=== PATIENT | male | born 1985 | race Caucasian/White ===

== ENCOUNTER 2016-11-10 14:53 | Emergency (ER) | payer SELFPAY ==
[2016-11-10 14:58] VITALS: O2SAT 98
--- NOTE | 2016-11-10 14:59 | EDPHY ---
H & P Stated Complaint: N/V since yesterday;diabetic Time Seen by Provider: 11/10/16 14:58 - Personal History Current Tetanus Diphtheria and Acellular Pertussis (TDAP): Yes Tetanus Vaccine Date: WITHIN 10 YRS - Medical/Surgical History Hx Asthma: No Hx Chronic Respiratory Disease: No Hx Diabetes: Yes Hx Cardiac Disease: No Hx Renal Disease: No Hx Cirrhosis: No Hx Alcoholism: No Hx HIV/AIDS: No Hx Splenectomy or Spleen Trauma: No Other PMH: DIABETES. occ THC use - Social History Smoking Status: Current some day smoker Constitutional: Initial Vital Signs Temperature (C) 36.7 C 11/10/16 14:54 Heart Rate 108 H 11/10/16 14:54 Respiratory Rate 18 11/10/16 14:54 Blood Pressure 128/93 H 11/10/16 14:54 O2 Sat (%) 98 11/10/16 14:54 O2 Delivery Mode Room Air Allergies/Adverse Reactions: No Known Allergies Allergy (Verified 11/10/16 14:54) Home Medications: Medication Instructions Recorded Insulin Detemir [Levemir] 25 units SC BID 06/02/15 Medical Decision Making ED Course/Re-evaluation: CHIEF COMPLAINT: Nausea, vomiting. HISTORY OF PRESENT ILLNESS: The patient is a 31-year-old male with a history of diabetes who presents with nausea and vomiting for the past 24 hours. His last few episodes of emesis have been streaked with blood. He admits associated non- migratory abdominal cramping from the vomiting. He denies diarrhea, fever, or other complaints. REVIEW OF SYSTEMS: A 10 point review of systems was performed and is negative with the exception of the elements mentioned in the history of present illness. PHYSICAL EXAM: HR, BP, O2 Sat, RR. Temp noted General Appearance: Alert, well hydrated, appropriate, and non-toxic appearing. Head: Atraumatic without scalp tenderness or obvious injury Eyes: Pupils equal, round, reactive to light and accommodation, EOMI, no trauma , no injection. Ears: Clear bilaterally, no perforation, normal landmarks Nose: Atraumatic, no rhinorrhea, clear. Throat: There is no erythema or exudates, no lesions, normal tonsils, mucus membranes moist. Neck: Supple, 2+ carotid upstroke, nontender, no lymphadenopathy. Respiratory: No retractions, no distress, no wheezes, and no accessory muscle use. Lungs are clear to auscultation bilaterally. Cardiovascular: Regular rate and rhythm, no murmurs, rubs, or gallops. Bilateral carotid, radial, dorsalis pedis, and posterior tibial pulses intact. Good capillary refill all extremities. Gastrointestinal: Abdomen is soft, non-distended, no masses, no rebound, no guarding, no peritoneal signs. Diffuse tenderness. Musculoskeletal: Normal active ROM of all extremities, atraumatic. Neurological: Alert, appropriate, and interactive. The patient has normal DTRs and non-focal cranial nerves, motor, sensory, and cerebellar exam. Skin: No rashes, good turgor, no nodules on palpation. Past medical history: Diabetes. Past surgical history: Non-contributory. Family history: Non-contributory. Social history: Nonsmoker. DIFFERENTIAL DIAGNOSIS: The differential diagnosis for the patient's nausea and vomiting included but was not limited to gastroenteritis, gastritis, appendicitis, and medication side effect. MEDICAL DECISION MAKIN-year-old male with diabetes presents with nausea and vomiting over the past 24 hours. He has associated crampy abdominal pain and is diffusely tender. His emesis has become blood-streaked but he does not describe a large amount of blood. No diarrhea or fever. An IV was established. He will have 2L IV saline, 20mg IV Pepcid for abdominal discomfort, and 4mg IV Zofran for nausea. He will be discharged when he can tolerate PO challenge. 161: Reassessed patient. He is still nauseated. 12.5mg IV Phenergan administered. 1650: Patient PO challenged. He tolerated well. He is comfortable going home. 1749: Patient vomiting again. He will be placed back in his room for further monitoring. 1914: Patient still nauseated but is no longer vomiting. 1mg PO Ativan administered for nausea. 2008: Reassessed patient. I offered him admission but he is feeling better and comfortable going home. - Data Points Medications Given: Discontinued Medications Sodium Chloride (Ns) 1,000 mls @ 0 mls/hr IV ONCE ONE PRN Reason: Wide Open Stop: 11/10/16 15:06 Last Admin: 11/10/16 15:18 Dose: 1,000 mls Sodium Chloride (Ns) 1,000 mls @ 0 mls/hr IV ONCE ONE PRN Reason: Wide Open Stop: 11/10/16 15:06 Last Admin: 11/10/16 15:59 Dose: 1,000 mls Famotidine/Sodium Chloride (Pepcid 20 Mg (Premix)) 50 mls @ 200 mls/hr IV EDNOW ONE Stop: 11/10/16 15:19 Last Admin: 11/10/16 15:17 Dose: 50 mls Lorazepam (Ativan Injection) 1 mg IVP EDNOW ONE Stop: 11/10/16 19:14 Last Admin: 11/10/16 19:18 Dose: 1 mg Ondansetron HCl (Zofran) 4 mg IVP EDNOW ONE Stop: 11/10/16 15:06 Last Admin: 11/10/16 15:18 Dose: 4 mg Ondansetron HCl (Zofran Odt 4 Mg Prepack#2) 1 btl TAKEHOME EDNOW ONE Stop: 11/10/16 17:37 Last Admin: 11/10/16 17:44 Dose: 1 btl Promethazine HCl (Phenergan) 12.5 mg IVP ONCE ONE Stop: 11/10/16 15:55 Last Admin: 11/10/16 15:59 Dose: 12.5 mg Promethazine HCl (Phenergan) 12.5 mg IVP ONCE ONE Stop: 11/10/16 18:03 Last Admin: 11/10/16 18:33 Dose: 12.5 mg Departure - Departure Disposition: Home, Routine, Self-Care Clinical Impression: Nausea and vomiting Qualifiers: Vomiting type: unspecified Vomiting Intractability: non-intractable Qualified Code(s): R11.2 - Nausea with vomiting, unspecified Condition: Good Instructions: Acute Nausea and Vomiting (ED) Additional Instructions: Advance diet slowly over the next 24 hours. Drink plenty of clear fluids as tolerable. Follow up with a PCP in 3-4 days if symptoms are not improving. You have been given the telephone number of the on-call outpatient doctor. Return to the emergency department if you experience any serious worsening of condition. Referrals: Tena Ragsdale MD [Medical Doctor] - As per Instructions Report Scribed for: Arnold Chavez Report Scribed by: Ellis Nelson Date of Report: 11/10/16 Time of Report: 15:05
[2016-11-10] MEDS ORDERED: ONDANSETRON 4 MG/2 ML VIAL IVP ONE (15:05)
[2016-11-10] MEDS ORDERED: FAMOTIDINE 20 MG/NACL 50 ML IV ONE (15:05)
[2016-11-10] MEDS ORDERED: NS 1,000 ML IV ONE ×2 (15:05)
[2016-11-10] MEDS ORDERED: PROMETHAZINE HCL 25 MG/ML INJ IVP ONE ×2 (15:54→18:02)
[2016-11-10] MEDS ORDERED: ONDANSETRON 4MG PREPACK#2 BTL TAKEHOME ONE (17:36)
[2016-11-10 19:03] VITALS: PULSE 88
[2016-11-10] MEDS ORDERED: LORazepam 2 MG/ML INJ IVP ONE (19:13)
[2016-11-10 20:25] VITALS: BP 132/78; RESP 16; TEMP 97.5
== END 2016-11-10 20:26 | disposition home or self-care (01) ==
DX: R11.2 Nausea with vomiting, unspecified (principal); E11.9 Type 2 diabetes mellitus without complications; F17.200 Nicotine dependence, unspecified, uncomplicated
CPT/HCPCS: 96365; J2405; J2550

== ENCOUNTER 2016-11-11 04:49 | Inpatient (IN) | payer SELFPAY ==
[2016-11-11] MEDS ORDERED: MAALOX/LIDO/HYOSC GI COCKTAIL 55 ML BOTTLE PO ONE ×2 (05:02→15:02)
[2016-11-11] MEDS ORDERED: ONDANSETRON 4 MG/2 ML VIAL IVP ONE (05:02)
[2016-11-11] MEDS ORDERED: METOCLOPRAMIDE 10 MG/2 ML VIAL IVP ONE (05:02)
[2016-11-11] MEDS ORDERED: NS 1,000 ML IV ONE ×4 (05:02→06:10)
[2016-11-11] MEDS ORDERED: FAMOTIDINE 20 MG/NACL 50 ML IV ONE (05:02)
--- NOTE | 2016-11-11 05:06 | EDPHY ---
H & P Time Seen by Provider: 11/11/16 05:00 HPI/ROS: HPI Nausea and vomiting. 31-year-old male by private vehicle. He was seen her earlier yesterday with complaint of nausea and vomiting. He was discharged from the emergency department. He returns complaining of continued nausea with multiple episodes of nonbilious, nonbloody vomiting and dry heaving. He also describes having intermittent abdominal cramping. No diarrhea. Last meal was 2 days ago. Last bowel movement was yesterday. Described as normal. No bloody or melenic stool. No prior surgical history. He is a type 1 diabetic. The last time he checked his blood sugar was 2 days ago. The last time he took insulin was 1 day ago. He also complains of acid reflux. ROS: Constitutional: No fever, no chills. No weakness. Eyes: No discharge. No changes in vision. ENT: No sore throat. No nasal congestion or rhinorrhea. Respiratory: No cough. No shortness of breath. Cardiac: No chest pain, no palpitations. Gastrointestinal: As above. Genitourinary: No hematuria. No dysuria or increased frequency with urination. Musculoskeletal: No back pain. No neck pain. No myalgias or arthralgias. Skin: No rashes. Neurological: No headache. No focal weakness or altered sensation. Past medical history: Type 1 diabetes. Social history: Here by himself. Last drink of alcohol was 4 days ago. Smokes marijuana occasionally. Physical Exam: General Appearance: Alert, he appears uncomfortable. This patient is responding to questions appropriately and in full sentences. This patient appears well-hydrated and well-nourished. Eyes: Pupils equal and round no pallor or injection. No lid edema, erythema or injection. Respiratory: There are no retractions, lungs are clear to auscultation with good air movement bilaterally. Cardiovascular: Regular rate and rhythm. No murmur. Gastrointestinal: Abdomen is soft with vague mild tenderness on palpation through the mid and upper abdomen, no masses, bowel sounds normal. No focal tenderness at McBurney's point. No Hernandez sign. Neurological: Motor sensory function is grossly intact. Cranial nerves are normal. Gait is normal. Skin: Warm and dry, no rashes. Musculoskeletal: Neck is supple and nontender. Extremities are symmetrical. All joints range without pain or impingement. Psychiatric: No agitation. No depression. Database: EKG: Imaging: Procedures: Emergency department course: IV placed. He was placed on a monitor. His vital signs were reviewed. Tachycardic. Afebrile. He did not have blood work on his previous visit. He was started on IV normal saline with 2 L to be given over the next 1-2 hours. He was initially given 4 mg of IV Zofran, 20 mg of IV Pepcid, 10 mg of IV Reglan , 0.5 mg of IV hydromorphone and a GI cocktail. 5:30 a.m., patient re-evaluated, more comfortable at this time. Heart rate 114. 6:00 a.m., patient's laboratory work reviewed. Bicarb 7, potassium 5.6, blood sugar in the 500s. He was started on IV insulin with 10 units of IV regular insulin given as a bolus followed by a drip at 7 units/hour. He has had about a L and half of IV normal saline. A 2nd IV was placed and he will be continued on 1/3 L of IV normal saline. Diagnosis and plan for admission to the ICU as well as treatment course discussed with him. All of his questions were answered. I do not suspect an infectious cause. Urinalysis was ordered. 6:10 a.m., spoke with on-call hospitalist. Dr. Sanchez accepts the patient for admission to the ICU. She will see this patient in the emergency department. 6:30 a.m., patient admitted in stable condition to the ICU under the care of the hospitalist service. Differential Diagnosis: The differential diagnosis on this patient includes but is not limited to pancreatitis, DKA, ulcerative versus non ulcerative gastritis, food-borne illness, bowel obstruction. This represents a partial list of diagnoses considered. These considerations are based on history, physical exam, past history, reassessment and diagnostic testing. Smoking Status: Current some day smoker Constitutional: Initial Vital Signs Temperature (C) 36.6 C 11/11/16 04:50 Heart Rate 121 H 11/11/16 04:50 Respiratory Rate 20 11/11/16 04:50 Blood Pressure 133/84 H 11/11/16 04:50 O2 Sat (%) 100 11/11/16 04:50 O2 Delivery Mode Room Air Allergies/Adverse Reactions: No Known Allergies Allergy (Verified 11/11/16 04:55) Home Medications: Medication Instructions Recorded Insulin Detemir [Levemir] 25 units SC BID 06/02/15 Medical Decision Making Critical Care Time: I spent a total of 42 minutes of critical care time in obtaining history, performing a physical exam, bedside monitoring of interventions, collecting and interpreting tests and discussion with consultants but not including time spent performing procedures. - Data Points Laboratory Results: Laboratory Results 11/11/16 05:10 11/11/16 05:10 11/11/16 11/11/16 05:10 05:10 WBC 25.29 10^3/uL H 10^3/uL (3.80-9.50) RBC 5.32 10^6/uL 10^6/uL (4.40-6.38) Hgb 16.7 g/dL g/dL (13.7-17.5) Hct 48.0 % % (40.0-51.0) MCV 90.2 fL fL (81.5-99.8) MCH 31.4 pg pg (27.9-34.1) MCHC 34.8 g/dL g/dL (32.4-36.7) RDW 11.7 % % (11.5-15.2) Plt Count 468 10^3/uL H 10^3/uL (150-400) MPV 9.6 fL fL (8.7-11.7) Neut % (Auto) Not Reported Lymph % (Auto) Not Reported Wirt % (Auto) Not Reported Eos % (Auto) Not Reported Baso % (Auto) Not Reported Nucleat RBC Rel Count 0.0 % % (0.0-0.2) Absolute Neuts (auto) Not Reported Absolute Lymphs (auto) Not Reported Absolute Monos (auto) Not Reported Absolute Eos (auto) Not Reported Absolute Basos (auto) Not Reported Absolute Nucleated RBC 0.00 10^3/uL 10^3/uL (0-0.01) Immature Gran % Not Reported Immature Gran # Not Reported Platelet Estimate Pending Sodium 136 mEq/L mEq/L (134-144) Potassium 5.6 mEq/L H mEq/L (3.5-5.2) Chloride 96 mEq/L L mEq/L (97-110) Carbon Dioxide 7 mEq/l L* mEq/l (22-31) Anion Gap 33 mEq/L H mEq/L (8-16) BUN 20 mg/dL mg/dL (7-23) Creatinine 1.1 mg/dL mg/dL (0.7-1.3) Estimated GFR > 60 Glucose 558 mg/dL H* mg/dL (70-100) Calcium 10.3 mg/dL mg/dL (8.5-10.4) Total Bilirubin 1.3 mg/dL mg/dL (0.1-1.4) Conjugated Bilirubin 0.7 mg/dL H mg/dL (0.0-0.5) Unconjugated Bilirubin 0.6 mg/dL mg/dL (0.0-1.1) AST 28 IU/L IU/L (17-59) ALT 27 IU/L IU/L (21-72) Alkaline Phosphatase 130 IU/L H IU/L (38-126) Total Protein 9.1 g/dL H g/dL (6.3-8.2) Albumin 5.5 g/dL H g/dL (3.5-5.0) Lipase 82.0 IU/L IU/L (23-300) Medications Given: Discontinued Medications Hydromorphone HCl (Dilaudid) 0.5 mg IVP EDNOW ONE Stop: 11/11/16 05:11 Last Admin: 11/11/16 05:20 Dose: 0.5 mg Sodium Chloride (Ns) 1,000 mls @ 0 mls/hr IV ONCE ONE PRN Reason: Wide Open Stop: 11/11/16 05:03 Last Admin: 11/11/16 05:45 Dose: 1,000 mls Sodium Chloride (Ns) 1,000 mls @ 0 mls/hr IV ONCE ONE PRN Reason: Wide Open Stop: 11/11/16 05:03 Last Admin: 11/11/16 05:10 Dose: 1,000 mls Famotidine/Sodium Chloride (Pepcid 20 Mg (Premix)) 50 mls @ 200 mls/hr IV EDNOW ONE Stop: 11/11/16 05:16 Last Admin: 11/11/16 05:32 Dose: 50 mls Sodium Chloride (Ns) 1,000 mls @ 0 mls/hr IV ONCE ONE PRN Reason: Wide Open Stop: 11/11/16 06:02 Last Admin: 11/11/16 06:15 Dose: 1,000 mls Insulin Human Regular (Humulin R) 10 unit IVP EDNOW ONE Stop: 11/11/16 06:02 Last Admin: 11/11/16 06:15 Dose: 10 unit Metoclopramide HCl (Reglan Injection) 10 mg IVP EDNOW ONE Stop: 11/11/16 05:03 Last Admin: 11/11/16 05:25 Dose: 10 mg Miscellaneous Medication (Gi Cocktail) 55 ml PO EDNOW ONE Stop: 11/11/16 05:03 Last Admin: 11/11/16 05:30 Dose: 55 ml Ondansetron HCl (Zofran) 4 mg IVP EDNOW ONE Stop: 11/11/16 05:03 Last Admin: 11/11/16 05:15 Dose: 4 mg Departure - Departure Disposition: [facility] Inpatient Acute Clinical Impression: Vomiting, Abdominal pain, DKA (diabetic ketoacidoses)
[2016-11-11] MEDS ORDERED: HYDROmorphONE/DILAUDID 1 MG/ML SYR IVP ONE (05:10)
[2016-11-11] MEDS ORDERED: NS 100 ML BAG IV ONE (05:16)
[2016-11-11 05:22] LABS: ADD DIFF? YES; ADD MORPH? NO; ADD SCAN? NO; ATYPICAL LYMPHOCYTE FLAG 10 (0-99); FRAGMENT RBC FLAG 0 (0-99); HEMOGLOBIN 16.7 g/dL (13.7-17.5); LEFT SHIFT FLG 40 (0-99); LIPEMIA HEMOLYSIS FLAG 90 (0-99); MEAN CELL HEMOGLOBIN 31.4 pg (27.9-34.1); MEAN CELL HEMOGLOBIN CONCENTR. 34.8 g/dL (32.4-36.7); MEAN CELL VOLUME 90.2 fL (81.5-99.8); MEAN PLATELET VOLUME 9.6 fL (8.7-11.7); PLATELET CLUMPS FLAG 0 (0-99); PLATELET COUNT 468 10^3/uL (150-400); RED BLOOD CELL COUNT 5.32 10^6/uL (4.40-6.38); RED CELL DISTRIBUTION WIDTH 11.7 % (11.5-15.2)
[2016-11-11 05:58] LABS: ALANINE AMINOTRANSFERASE 27 IU/L (21-72); ALBUMIN 5.5 g/dL (3.5-5.0); ALKALINE PHOSPHATASE 130 IU/L (38-126); ANION GAP 33 mEq/L (8-16); ASPARTATE AMINOTRANSFERASE 28 IU/L (17-59); BILIRUBIN,TOTAL 1.3 mg/dL (0.1-1.4); BILIRUBIN-CONJUGATED 0.7 mg/dL (0.0-0.5); BILIRUBIN-UNCONJUGATED 0.6 mg/dL (0.0-1.1); CALCIUM 10.3 mg/dL (8.5-10.4); CHLORIDE 96 mEq/L (97-110); CREATININE 1.1 mg/dL (0.7-1.3); GLOMERULAR FILTRATION RATE > 60; POTASSIUM 5.6 mEq/L (3.5-5.2); SODIUM 136 mEq/L (134-144); TOTAL PROTEIN 9.1 g/dL (6.3-8.2)
[2016-11-11 05:59] LABS: CARBON DIOXIDE 7 mEq/l (22-31); GLUCOSE 558 mg/dL (70-100)
[2016-11-11] MEDS ORDERED: INSULIN REGULAR HUMAN 100 UNIT/ML IVP ONE (06:01)
[2016-11-11] MEDS ORDERED: INSULIN REGULAR HUMAN 100 UNIT, COSIGN. REQUIRED 1 EA in NS 100 ML IV ONE (06:01)
[2016-11-11] MEDS ORDERED: ACETAMINOPHEN 325 MG TAB PO PRN (06:10)
[2016-11-11] MEDS ORDERED: ONDANSETRON DISINTEGRATING 4 MG TAB PO PRN (06:10)
[2016-11-11] MEDS ORDERED: PROMETHAZINE HCL 25 MG/ML INJ IVP PRN (06:10)
[2016-11-11] MEDS ORDERED: NS 1,000 ML IV SCH (06:15)
[2016-11-11 06:30] LABS: GIANT PLATELETS PRESENT; PLATELET ESTIMATE INCREASED (ADEQ)
[2016-11-11] MEDS ORDERED: INSULIN REGULAR HUMAN 100 UNIT in NS 100 ML IV SCH (06:30)
[2016-11-11 07:15] LABS: ANION GAP 22 mEq/L (8-16); CALCIUM 8.4 mg/dL (8.5-10.4); CHLORIDE 106 mEq/L (97-110); CREATININE 0.9 mg/dL (0.7-1.3); GLOMERULAR FILTRATION RATE > 60; GLUCOSE 432 mg/dL (70-100); MAGNESIUM 2.1 mg/dL (1.6-2.3); POTASSIUM 5.8 mEq/L (3.5-5.2); SODIUM 135 mEq/L (134-144)
[2016-11-11 07:18] LABS: CARBON DIOXIDE 7 mEq/l (22-31)
--- NOTE | 2016-11-11 07:19 | GHP ---
DATE OF ADMISSION: 11/11/2016 CHIEF COMPLAINT: Nausea and vomiting. HISTORY OF PRESENT ILLNESS: A 31-year-old male with type 1 diabetes presenting with persistent naus ea and vomiting for the past 72 hours. The patient reports waking on Thursday morning with subjective fevers and chills, abdominal cramping, developed nausea and ultimately nonbloody vomiting. The pat ient attempted to treat this with hydration alone and was unable to control his symptoms. He presen viri to the emergency department on 11/10/2016, with symptoms, was hydrated, provided antiemetics, an d discharged back home. The patient reports that he has not been able to have his PCP refill his ho me insulin prescriptions so he has been without insulin for 72 hours. Reports that the nausea and v omiting remain persistent with some coffee-grounds quality in the emesis beginning early this shen g. Patient denies any diarrhea associated. Reports almost no sustained fluid or solid food intake in the last 72 hours. Denies any shortness of breath. Denies cough. Denies rhinorrhea. Denies sor e throat. Denies dizziness or headache. Denies dysuria, hematuria, lower extremity edema or rashes to his knowledge. He has had no exposure to sick contacts. PAST MEDICAL HISTORY: Type 1 diabetes, insulin dependent. SOCIAL HISTORY: Negative for tobacco. Positive for consistent alcohol consumption. 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 Reports daily marijuana use and typically more than once daily. Denies any il licit drugs. FAMILY HISTORY: Notable for gestational diabetes in a sister. REVIEW OF SYSTEMS: A 10-point review of systems is negative with the exception of that reported in the HPI. PHYSICAL EXAMINATION: VITAL SIGNS: Blood pressure 133/84, heart rate 121, respiratory rate 20, sat urating 100% on room air. Afebrile at 36.6. GENERAL: This is a thin-appearing young male in no ac fahad distress. HEENT: Notable for dry mucous membranes. EYES: Negative for any icterus. CARDIAC: Patient is tachycardic, but regular. PULMONARY: Good respiratory effort. Clear to auscultation bilaterally. GASTROINTESTINAL: The patient has positive bowel sounds. Abdomen is thin, soft, and nontender to palpation in all 4 quadrants. MUSCULOSKELETAL: Negative for any lower extremity edema . SKIN: Negative for any rashes. NEUROLOGIC: The patient is alert and oriented x3. PSYCHIATRIC: He is pleasant and cooperative on interview and examination. LABORATORY DATA: White count 25,000, hematocrit is 48.0, platelets 468, sodium 136, creatinine 1.1, baseline appears 0.5, carbon dioxide 7, anion gap 33, blood glucose 558, potassium 5.6. Telemetry, which I personally reviewed and interpreted, shows sinus tachycardia. ASSESSMENT AND PLAN: This is a 31-year-old male with type 1 diabetes presenting with nausea and vom iting. 1. Acute diabetic ketoacidosis. Patient is presenting with medication noncompliance, nausea and vo miting. Anion gap is 33, bicarb 7, blood glucose is greater than 500. Will aggressively fluid resu scitate with IV normal saline and initiate an insulin drip. With paucity of other symptoms consiste nt with occult infection, will check a urinalysis and otherwise refrain from chest x-ray or other im aging at this time. The patient has had a similar episode a few months ago and had rapid resolution of his acidosis on an insulin drip and anticipate a similar response during this hospital stay. Ca n transition back to his long-acting glargine regimen when he is appropriately hydrated and gap is c losed. 2. Acute nausea and vomiting. The timing coincides with his medication noncompliance. It is diffi cult to assess whether this is gastroenteritis or simply early symptoms of DKA without diarrhea. Wi ll treat as above and follow the patient's symptoms on antiemetics and hydration. 3. Type 1 diabetes. It appears the patient needs additional education related to medication compli ance symptoms of DKA. He is transitioning currently to a new primary care clinic. Will certainly pr ovide prescriptions for his insulin regimen at disposition. 4. Acute leukocytosis. Suspect this may be reactive based on the patient's acute presentation. Carlos Manuel l follow with supportive care alone. Again, sending urinalysis to rule out occult UTI, but other wo rkup for occult infection will be held at this time. No empiric antibiotics. 5. Thrombocytosis, suspect also reactive. Will follow with supportive care. 6. Prophylaxis with Lovenox. 7. Diet: Diabetic, as he tolerates. DISPOSITION: I expect greater than 2 midnights as the patient is presenting with DKA with severe ac idosis requiring IV insulin and aggressive fluid resuscitation. The patient will be admitted to the intensive care unit for appropriate monitoring. I have discussed the case with the emergency room physician. Patient will be triaged to the ICU when a bed is available. /[id number]/MODL
[2016-11-11 07:31] LABS: B-HYDROXYBUTYRATE 8.49 mmol/L (0.02-0.27)
[2016-11-11 07:32] LABS: SPECIMEN HEMOLYSIS 110
[2016-11-11] MEDS ORDERED: INSULIN REGULAR HUMAN 100 UNIT/ML ONE ×2 (08:51→10:32)
[2016-11-11 09:50] LABS: COLOR YELLOW; LEUKOCYTE ESTERASE,URINE NEGATIVE (NEGATIVE); NITRITE,URINE NEGATIVE (NEGATIVE)
[2016-11-11] MEDS: ENOXAPARIN 40 MG/0.4 ML SYR SC SCH (09:52)
[2016-11-11 09:59] LABS: MUCUS TRACE /lpf (NONE-1+)
[2016-11-11 12:00] LABS: ANION GAP 10 mEq/L (8-16); CALCIUM 8.3 mg/dL (8.5-10.4); CARBON DIOXIDE 16 mEq/l (22-31); CHLORIDE 109 mEq/L (97-110); CREATININE 0.6 mg/dL (0.7-1.3); GLOMERULAR FILTRATION RATE > 60; GLUCOSE 140 mg/dL (70-100); POTASSIUM 4.4 mEq/L (3.5-5.2); SODIUM 135 mEq/L (134-144)
[2016-11-11] MEDS ORDERED: INSULIN DETEMIR 30 UNIT SC SCH (13:45)
[2016-11-11] MEDS ORDERED: INSULIN GLARGINE 100 UNITS/ML SYRINGE SC ONE (16:00)
[2016-11-11] MEDS: PANTOPRAZOLE SODIUM 40 MG TAB PO SCH (16:22)
[2016-11-11] MEDS ORDERED: MAALOX/LIDO/HYOSC GI COCKTAIL 55 ML BOTTLE PO PRN (16:23)
--- NOTE | 2016-11-11 16:27 | HOSPPROG ---
Hospitalist Progress Note Assessment/Plan: Additional critical care time spent with patient, at bedside, [id number] with patient, 45 minutes total time, addressing the following: -discussed the patient with Dr. King on ICU team rounds -anion gap closed, given a dose of Lantus 30 units, discontinued insulin drip -adjusted IV fluids to normal saline at 150 cc an hour -patient continues to have some abdominal symptoms including vomiting, reflux, reduce diet to clear liquids -as needed Maalox, scheduled PPI, as needed antiemetics -repeat chemistry now, repeat at 10:00 p.m. to ensure anion gap has not reopened -not localizing any infectious symptoms, but if the patient begins to have diarrhea would recommend checking stool PCR -blood cultures have been sent, urinalysis bland Subjective: Ongoing nausea, reflux, vomited twice Objective: Vital Signs Temp Pulse Resp BP Pulse Ox 37.2 C 99 24 H 129/69 H 98 11/11/16 15:00 11/11/16 15:00 11/11/16 15:00 11/11/16 15:00 11/11/16 15:00 Laboratory Results 11/11/16 10:35 11/10/16 11/11/16 11/12/16 05:59 05:59 05:59 Intake Total 4500 Output Total 1600 Balance 2900 ICD10 Worksheet Patient Problems: Problems Problem Status Onset DKA (diabetic ketoacidoses) Acute Vomiting Acute Abdominal pain Acute
[2016-11-11] MEDS ORDERED: D50W 25 GM/50 ML SYR IVP PRN (22:45)
[2016-11-12 04:50] LABS: % IMMATURE GRANULYOCYTES 1.1 % (0.0-1.1); ABSOLUTE IMMATURE GRANULOCYTES 0.15 10^3/uL (0.00-0.10); ADD DIFF? NO; ADD MORPH? NO; ADD SCAN? NO; ATYPICAL LYMPHOCYTE FLAG 10 (0-99); FRAGMENT RBC FLAG 0 (0-99); HEMATOCRIT 35.2 % (40.0-51.0); HEMOGLOBIN 12.8 g/dL (13.7-17.5); LEFT SHIFT FLG 10 (0-99); LIPEMIA HEMOLYSIS FLAG 90 (0-99); MEAN CELL HEMOGLOBIN 31.3 pg (27.9-34.1); MEAN CELL HEMOGLOBIN CONCENTR. 36.4 g/dL (32.4-36.7); MEAN CELL VOLUME 86.1 fL (81.5-99.8); MEAN PLATELET VOLUME 9.5 fL (8.7-11.7); PLATELET CLUMPS FLAG 10 (0-99); PLATELET COUNT 239 10^3/uL (150-400); RED BLOOD CELL COUNT 4.09 10^6/uL (4.40-6.38); RED CELL DISTRIBUTION WIDTH 11.7 % (11.5-15.2)
[2016-11-12 05:02] LABS: ALANINE AMINOTRANSFERASE 27 IU/L (21-72); ALBUMIN 3.3 g/dL (3.5-5.0); ALKALINE PHOSPHATASE 67 IU/L (38-126); ANION GAP 12 mEq/L (8-16); ASPARTATE AMINOTRANSFERASE 16 IU/L (17-59); BILIRUBIN,TOTAL 1.2 mg/dL (0.1-1.4); CALCIUM 8.3 mg/dL (8.5-10.4); CARBON DIOXIDE 17 mEq/l (22-31); CHLORIDE 104 mEq/L (97-110); CREATININE 0.6 mg/dL (0.7-1.3); GLOMERULAR FILTRATION RATE > 60; GLUCOSE 246 mg/dL (70-100); SODIUM 133 mEq/L (134-144); TOTAL PROTEIN 5.9 g/dL (6.3-8.2)
[2016-11-12] MEDS ORDERED: INSULIN LISPRO 100 UNIT/ML SC SCH (08:00)
[2016-11-12] MEDS: ENOXAPARIN 40 MG/0.4 ML SYR SC SCH (08:40)
[2016-11-12] MEDS: PANTOPRAZOLE SODIUM 40 MG TAB PO SCH (08:40)
[2016-11-12] MEDS: INSULIN GLARGINE 100 UNITS/ML SYRINGE SC SCH ×2 (08:40→20:40)
[2016-11-12] MEDS ORDERED: D50W 25 GM/50 ML SYR IVP PRN (08:51)
[2016-11-12] MEDS: NS 1,000 ML IV SCH ×2 (09:18→17:57)
[2016-11-12] MEDS: INSULIN REGULAR HUMAN 100 UNIT/ML SC SCH ×3 (11:54→21:10)
[2016-11-12] MEDS: FAMOTIDINE 20 MG TAB PO SCH ×2 (15:50→20:40)
[2016-11-12] MEDS: ONDANSETRON 4 MG/2 ML VIAL IVP PRN (17:57)
--- NOTE | 2016-11-12 18:18 | HOSPPROG ---
Hospitalist Progress Note Assessment/Plan: Assessment: 31-year-old male presents with acute diabetic ketoacidosis in the setting of DM 1 Plan: 1. Diabetic ketoacidosis. Acute, evidenced by positive beta hydroxybutyrate plus hyperglycemia plus anion gap acidosis, unclear precipitant. -patient stabilized on Lantus after receiving insulin drip -patient continues to experience significant abdominal symptoms resulting in severe reduction of oral tolerance of solids and liquids -continue on clear liquid diet, advance to diabetic diet as tolerates -continue antiemetics, anti-reflux medications -continue to monitor chemistry panel -continue Lantus 30 units twice daily plus insulin sliding scale -continues to require ongoing IV fluids as he is unable to tolerate consistent oral intake 2. Metabolic acidosis. Acute, anion gap, secondary to ketoacids secondary to above -resolved status post IV fluids and treatment of above 3. Hyponatremia. Hypovolemic, continue IV fluids with normal saline at 100 cc an hour -repeat serum sodium level in a.m. 4. Leukocytosis. Unclear whether this is secondary to stress response from DKA versus viral gastroenteritis -continue to monitor CBC Diet. Clear liquid diet, advance to diabetic when tolerates Prophylaxis. Risk patient, Lovenox 40 Code status. Full Disposition. Anticipated discharge is 11/13/2016, requires extended hospitalization secondary to poor tolerance of oral solids and liquids requiring ongoing IV fluids. Subjective: Patient reports ongoing abdominal nausea and reflux, reports that he is tolerating 1% of his normal intake Objective: Vital Signs Temp Pulse Resp BP Pulse Ox 36.8 C 68 14 142/93 H 98 11/12/16 15:55 11/12/16 15:55 11/12/16 15:55 11/12/16 15:55 11/12/16 15:55 Laboratory Results 11/12/16 04:38 11/12/16 04:38 11/11/16 11/12/16 11/13/16 05:59 05:59 05:59 Intake Total 7089 985 Output Total 3500 600 Balance 3589 385 - Pending Discharge Pending Discharge Within 24 Hours: Yes Pending Discharge Date: 11/13/16 Pending Discharge Time: 11:00 - Physical Exam Constitutional: no apparent distress, uncomfortable, No not in pain, No chronically ill appearing Cardiovascular: regular rate and rhythym, no murmur, rub, or gallop Respiratory: no respiratory distress, no rales or rhonchi, clear to auscultation Gastrointestinal: normoactive bowel sounds, soft, non-tender abdomen, no palpable masses, No distension Neurologic: AAOx3, sensation intact bilaterally Psychiatric: interacting appropriately, not anxious, not encephalopathic, thought process linear ICD10 Worksheet Patient Problems: Problems Problem Status Onset DKA (diabetic ketoacidoses) Acute Vomiting Acute Abdominal pain Acute
[2016-11-13 05:58] LABS: % IMMATURE GRANULYOCYTES 0.7 % (0.0-1.1); ABSOLUTE IMMATURE GRANULOCYTES 0.07 10^3/uL (0.00-0.10); ADD DIFF? NO; ADD MORPH? NO; ADD SCAN? NO; ATYPICAL LYMPHOCYTE FLAG 30 (0-99); FRAGMENT RBC FLAG 0 (0-99); HEMATOCRIT 38.8 % (40.0-51.0); HEMOGLOBIN 14.2 g/dL (13.7-17.5); LEFT SHIFT FLG 0 (0-99); LIPEMIA HEMOLYSIS FLAG 90 (0-99); MEAN CELL HEMOGLOBIN 31.6 pg (27.9-34.1); MEAN CELL HEMOGLOBIN CONCENTR. 36.6 g/dL (32.4-36.7); MEAN CELL VOLUME 86.4 fL (81.5-99.8); MEAN PLATELET VOLUME 9.7 fL (8.7-11.7); PLATELET CLUMPS FLAG 0 (0-99); PLATELET COUNT 242 10^3/uL (150-400); RED BLOOD CELL COUNT 4.49 10^6/uL (4.40-6.38); RED CELL DISTRIBUTION WIDTH 11.5 % (11.5-15.2)
[2016-11-13 06:10] LABS: ANION GAP 7 mEq/L (8-16); CALCIUM 8.7 mg/dL (8.5-10.4); CARBON DIOXIDE 26 mEq/l (22-31); CHLORIDE 105 mEq/L (97-110); CREATININE 0.6 mg/dL (0.7-1.3); GLOMERULAR FILTRATION RATE > 60; GLUCOSE 60 mg/dL (70-100); POTASSIUM 3.1 mEq/L (3.5-5.2); SODIUM 138 mEq/L (134-144)
[2016-11-13] MEDS: INSULIN REGULAR HUMAN 100 UNIT/ML SC SCH ×2 (08:06→12:04)
[2016-11-13] MEDS ORDERED: POTASSIUM Cl (KCl) 40 MEQ in NS 1,000 ML IV SCH (08:30)
[2016-11-13] MEDS: SUCRALFATE 1 GM/10 ML UDCUP PO SCH ×2 (09:12→11:55)
[2016-11-13] MEDS: INSULIN GLARGINE 100 UNITS/ML SYRINGE SC SCH (09:12)
[2016-11-13] MEDS: PANTOPRAZOLE SODIUM 40 MG TAB PO SCH (09:12)
[2016-11-13] MEDS: FAMOTIDINE 20 MG TAB PO SCH (09:12)
[2016-11-13] MEDS: ENOXAPARIN 40 MG/0.4 ML SYR SC SCH (09:14)
[2016-11-13] MEDS ORDERED: INSULIN GLARGINE 100 UNITS/ML SYRINGE SC SCH (10:11)
[2016-11-13 11:57] VITALS: BP 139/95; PULSE 65; RESP 18; TEMP 98.2; O2SAT 98
[2016-11-13] MEDS: ONDANSETRON 4 MG/2 ML VIAL IVP PRN (12:01)
--- NOTE | 2016-11-13 15:12 | PDDCSUM ---
Discharge Summary Discharge Summary: DISCHARGE SUMMARY FOLLOW-UP ITEMS: None DATE OF ADMISSION: 11/11/2016 DATE OF DISCHARGE: 11/13/2016 DISCHARGE DIAGNOSES: 1. Acute diabetic ketoacidosis 2. Acute metabolic acidosis 3. Acute hyponatremia 4. Suspected gastro esophageal reflux disease CONSULTATIONS: Pulmonary Critical Care PROCEDURES / IMAGING: None CHIEF COMPLAINT: Nausea vomiting, abdominal discomfort SUBJECTIVE: Patient continues to experience abdominal discomfort with oral intake of solids and liquids PHYSICAL EXAM ON DISCHARGE: Systolic blood pressure is within normal limits, alert awake oriented x3 no apparent distress, abdomen is soft nontender nondistended bowel sounds present LABS ON DISCHARGE: Potassium 3.1, creatinine 0.6, white blood count 9700, hemoglobin 14.2 HOSPITAL COURSE BY PROBLEM: 1. Acute diabetic ketoacidosis. Evidenced by a positive beta hydroxybutyrate plus hyperglycemia plus anion gap metabolic acidosis unclear precipitant although it is suspected that the patient's medication non adherence certainly contributed to this issue. He had run out of his script for Levemir and was unable to refill. He presented with symptoms of DKA and he was initiated on empiric IV fluids and insulin drip. His anion gap closed and he was transitioned over to IV fluids alone with long-acting insulin. He did have 1 episode of hypoglycemia in the setting of poor oral intake secondary to nausea and reflux symptoms. He had no evidence of precipitating infectious cause and he is being discharged on half of his home dosage of Levemir given his persistent low intake of oral solids and liquids from his reflux. He will follow up with his primary care provider to receive outpatient prescription for Levemir and will check his blood sugars if he experiences any hypoglycemic symptoms. 2. Acute metabolic acidosis. Anion gap, secondary to ketoacidosis, resolved status post IV fluids and treatment of above. 3. Acute hyponatremia. Hypovolemic, status post IV fluids and resolution. 4. Suspected gastroesophageal reflux disease. Patient's hospitalization was extended secondary to severe GERD symptoms status post nausea and vomiting for DKA. The patient's oral intake of solids and liquids on 11/12 was approximately 1% of his normal intake and we added an H2 danny to his PPI. On 11/13, his oral intake was rated around 10% of his normal intake, so we introduced Carafate to his H2 danny and PPI. Patient reports that this is allowed him to tolerate liquid nourishment, and he will be discharged home with Glucerna and recommendations to utilize supplemental smoothies and shakes. His symptoms should resolve over the next week and I provided them with least 10 days of therapy. He should follow up with primary care provider to continue to review his symptoms. DISCHARGE MEDICATIONS: Please see official discharge medication reconciliation sheet in chart , Carafate 4 times daily, PPI, H2 danny, Levemir 15 units twice daily. DISCHARGE INSTRUCTIONS: Follow up with primary care provider early next week. TIME SPENT: Greater than 30 minutes were spent on direct patient care, as well as discharge planning and preparation.
== END 2016-11-13 16:02 | disposition home or self-care (01) | DRG 638 ==
LOC: F2N 08:20 → F3E 11-12 09:07
PROVIDERS: ADMIT Hospitalist; ATTEND Hospitalist
DX: E10.10 Type 1 diabetes mellitus with ketoacidosis without coma (principal); E87.1 Hypo-osmolality and hyponatremia; T38.3X6A Underdosing of insulin and oral hypoglycemic [antidiabetic] drugs, initial encounter; E86.1 Hypovolemia; K21.9 Gastro-esophageal reflux disease without esophagitis
CPT/HCPCS: 82947-QW; 96365; 97161-GP; J1170; J1650; J1815; J2405; J2550; J2765

== ENCOUNTER 2016-12-18 09:39 | Inpatient (IN) | payer SELFPAY ==
--- NOTE | 2016-12-18 10:12 | EDPHY ---
H & P Stated Complaint: n/v since Thursday, DM1, home glucose reading "high" Time Seen by Provider: 12/18/16 10:07 HPI/ROS: CHIEF COMPLAINT: Nausea vomiting HISTORY OF PRESENT ILLNESS: This is a 31-year-old male presenting to the emergency room complaining consistent nausea and vomiting onset yesterday. Patient states decreased PO intake, elevated glucose. Patient stated yesterday checking his blood sugar the monitor stated too high to read he gave himself 30 units of insulin. This morning checking his blood sugar monitor once again read too high gave himself another 30 units of insulin, but patient stated just feeling very fatigued with consistent nausea vomiting and weakness. Patient states he may be in DKA. Denies any fever chills or diarrhea REVIEW OF SYSTEMS: Constitutional: No fever or chills, positive for fatigue Eyes: No vision changes ENT: No sore throat Respiratory: No shortness of breath Cardiac: No chest pain Gastrointestinal: Nausea vomiting Genitourinary: No hematuria. Musculoskeletal: No back pain.] Skin: No rashes. Neurological: No headache. Source: Patient - Personal History Current Tetanus/Diphtheria Vaccine: Yes Current Tetanus Diphtheria and Acellular Pertussis (TDAP): Yes Tetanus Vaccine Date: WITHIN 10 YRS - Medical/Surgical History Hx Asthma: No Hx Chronic Respiratory Disease: No Hx Diabetes: Yes Hx Cardiac Disease: No Hx Renal Disease: No Hx Cirrhosis: No Hx Alcoholism: No Hx HIV/AIDS: No Hx Splenectomy or Spleen Trauma: No Other PMH: type 1 DIABETES. occ THC use - Social History Smoking Status: Former smoker - Physical Exam Exam: General Appearance: Alert, no distress. Eyes: Pupils equal and round no pallor or injection. ENT, Mouth: Mucous membranes dry. Respiratory: There are no retractions, lungs are clear to auscultation. Cardiovascular: No murmur gallop, tachycardic 120 Gastrointestinal: Abdomen is soft and nontender, no masses, bowel sounds normal. Neurological: Ambulatory without gait disturbance, No neuro focal deficits Skin: Warm and dry, no rashes. Musculoskeletal: Neck is supple nontender. Extremities are symmetrical, full range of motion. Psychiatric: Patient is oriented X 3, there is no agitation. Constitutional: Initial Vital Signs Temperature (C) 36.9 C 12/18/16 09:49 Heart Rate 129 H 12/18/16 09:49 Respiratory Rate 18 04/13/17 09:49 Blood Pressure 120/85 H 12/18/16 09:49 O2 Sat (%) 96 12/18/16 09:49 O2 Delivery Mode Room Air Allergies/Adverse Reactions: No Known Allergies Allergy (Verified 12/18/16 09:49) Home Medications: Medication Instructions Recorded Insulin Detemir [Levemir] 15 units SC BID #60 dose 11/13/16 Medical Decision Making - Diagnostics Imaging: Imaging Impressions Chest X-Ray 12/18/16 10:33 Impression: Mild peribronchial thickening suggesting airways disease/bronchitis. ED Course/Re-evaluation: Discussed plan of care: IV fluids, Chem 7, CBC, magnesium, phos, chest x-ray 1115: Chest x-ray bronchitis, no pneumonia 1130: Discussed admit status with patient for DKA Differential Diagnosis: Other differential diagnosis considered not limited to pneumonia, sepsis and hyperkalemia - Data Points Laboratory Results: Laboratory Results 12/18/16 10:05 12/18/16 10:05 12/18/16 12/18/16 12/18/16 10:31 10:30 10:05 WBC RBC Hgb POC Hgb 18.0 gm/dL H gm/dL (14.5-17.3) Hct POC Hct 53 % H % (42.8-50.6) MCV MCH MCHC RDW Plt Count MPV Neut % (Auto) Lymph % (Auto) [place] % (Auto) Eos % (Auto) Baso % (Auto) Nucleat RBC Rel Count Absolute Neuts (auto) Absolute Lymphs (auto) Absolute Monos (auto) Absolute Eos (auto) Absolute Basos (auto) Absolute Nucleated RBC Immature Gran % Immature Gran # POC Sodium 123 mEq/L L mEq/L (134-144) Sodium 126 mEq/L L mEq/L (134-144) POC Potassium 4.2 mEq/L mEq/L (3.3-5.0) Potassium 4.6 mEq/L mEq/L (3.5-5.2) POC Chloride 79 mEq/L L mEq/L (96-108) Chloride 71 mEq/L L mEq/L (97-110) Carbon Dioxide 13 mEq/l L mEq/l (22-31) Anion Gap 42 mEq/L H mEq/L (8-16) POC BUN 49 mg/dL H mg/dL (7-23) BUN 46 mg/dL H mg/dL (7-23) Creatinine 1.4 mg/dL H mg/dL (0.7-1.3) POC Creatinine 1.2 mg/dL mg/dL (0.8-1.5) Estimated GFR 59 Glucose 842 mg/dL H* mg/dL (70-100) POC Glucose > 700 mg/dL H* mg/dL (70-100) Calcium 10.9 mg/dL H mg/dL (8.5-10.4) Phosphorus 9.6 mg/dL H mg/dL (2.5-4.5) Magnesium 2.2 mg/dL mg/dL (1.6-2.3) Urine Color PALE YELLOW Urine Appearance CLEAR Urine pH 5.0 (5.0-7.5) Ur Specific [place] 1.017 (1.002-1.030) Urine Protein NEGATIVE (NEGATIVE) Urine Ketones 2+ H (NEGATIVE) Urine Blood NEGATIVE (NEGATIVE) Urine Nitrate NEGATIVE (NEGATIVE) Urine Bilirubin NEGATIVE (NEGATIVE) Urine Urobilinogen NEGATIVE EU EU (0.2-1.0) Ur Leukocyte Esterase NEGATIVE (NEGATIVE) Urine RBC NONE SEEN /hpf /hpf (0-3) Urine WBC NONE SEEN /hpf /hpf (0-3) Ur Epithelial Cells NONE SEEN /lpf /lpf (NONE-1+) Urine Mucus TRACE /lpf /lpf (NONE-1+) Urine Glucose 3+ H (NEGATIVE) 12/18/16 10:05 WBC 22.65 10^3/uL H 10^3/uL (3.80-9.50) RBC 5.24 10^6/uL 10^6/uL (4.40-6.38) Hgb 16.3 g/dL g/dL (13.7-17.5) POC Hgb Hct 45.6 % % (40.0-51.0) POC Hct MCV 87.0 fL fL (81.5-99.8) MCH 31.1 pg pg (27.9-34.1) MCHC 35.7 g/dL g/dL (32.4-36.7) RDW 11.6 % % (11.5-15.2) Plt Count 433 10^3/uL H 10^3/uL (150-400) MPV 10.2 fL fL (8.7-11.7) Neut % (Auto) 89.8 % H % (39.3-74.2) Lymph % (Auto) 4.0 % L % (15.0-45.0) [place] % (Auto) 4.8 % % (4.5-13.0) Eos % (Auto) 0.0 % L % (0.6-7.6) Baso % (Auto) 0.2 % L % (0.3-1.7) Nucleat RBC Rel Count 0.0 % % (0.0-0.2) Absolute Neuts (auto) 20.34 10^3/uL H 10^3/uL (1.70-6.50) Absolute Lymphs (auto) 0.90 10^3/uL L 10^3/uL (1.00-3.00) Absolute Monos (auto) 1.09 10^3/uL H 10^3/uL (0.30-0.80) Absolute Eos (auto) 0.00 10^3/uL L 10^3/uL (0.03-0.40) Absolute Basos (auto) 0.04 10^3/uL 10^3/uL (0.02-0.10) Absolute Nucleated RBC 0.00 10^3/uL 10^3/uL (0-0.01) Immature Gran % 1.2 % H % (0.0-1.1) Immature Gran # 0.28 10^3/uL H 10^3/uL (0.00-0.10) POC Sodium Sodium POC Potassium Potassium POC Chloride Chloride Carbon Dioxide Anion Gap POC BUN BUN Creatinine POC Creatinine Estimated GFR Glucose POC Glucose Calcium Phosphorus Magnesium Urine Color Urine Appearance Urine pH Ur Specific [place] Urine Protein Urine Ketones Urine Blood Urine Nitrate Urine Bilirubin Urine Urobilinogen Ur Leukocyte Esterase Urine RBC Urine WBC Ur Epithelial Cells Urine Mucus Urine Glucose Medications Given: Discontinued Medications Sodium Chloride (Ns) 1,000 mls @ 0 mls/hr IV ONCE ONE PRN Reason: Wide Open Stop: 12/18/16 10:32 Last Admin: 12/18/16 10:31 Dose: 1,000 mls Sodium Chloride (Ns) 1,000 mls @ 0 mls/hr IV ONCE ONE PRN Reason: Wide Open Stop: 12/18/16 10:41 Last Admin: 12/18/16 11:06 Dose: 1,000 mls Insulin Human Regular (Humulin R) 10 unit IVP EDNOW ONE Stop: 12/18/16 10:41 Last Admin: 12/18/16 10:58 Dose: 10 units Ondansetron HCl (Zofran) 4 mg IVP EDNOW ONE Stop: 12/18/16 11:09 Last Admin: 12/18/16 11:22 Dose: 4 mg Point of Care Test Results: 12/18/16 10:31 POC Sodium 123 L POC Potassium 4.2 POC Chloride 79 L POC BUN 49 H POC Creatinine 1.2 POC Glucose > 700 H* Departure - Departure Disposition: [facility] Inpatient Acute Clinical Impression: DKA (diabetic ketoacidoses) Qualifiers: Diabetes mellitus type: type 1 Diabetes mellitus complication detail: without coma Qualified Code(s): E10.10 - Type 1 diabetes mellitus with ketoacidosis without coma Condition: Good Referrals: TATO PIEDRA [Other] - As per Instructions
[2016-12-18 10:24] LABS: % IMMATURE GRANULYOCYTES 1.2 % (0.0-1.1); ABSOLUTE IMMATURE GRANULOCYTES 0.28 10^3/uL (0.00-0.10); ADD DIFF? NO; ADD MORPH? NO; ADD SCAN? NO; ATYPICAL LYMPHOCYTE FLAG 0 (0-99); FRAGMENT RBC FLAG 0 (0-99); HEMATOCRIT 45.6 % (40.0-51.0); HEMOGLOBIN 16.3 g/dL (13.7-17.5); LEFT SHIFT FLG 10 (0-99); LIPEMIA HEMOLYSIS FLAG 90 (0-99); MEAN CELL HEMOGLOBIN 31.1 pg (27.9-34.1); MEAN CELL HEMOGLOBIN CONCENTR. 35.7 g/dL (32.4-36.7); MEAN PLATELET VOLUME 10.2 fL (8.7-11.7); PLATELET CLUMPS FLAG 0 (0-99); PLATELET COUNT 433 10^3/uL (150-400); RED BLOOD CELL COUNT 5.24 10^6/uL (4.40-6.38); RED CELL DISTRIBUTION WIDTH 11.6 % (11.5-15.2)
[2016-12-18] MEDS ORDERED: NS 1,000 ML IV ONE ×2 (10:31→10:40)
[2016-12-18 10:38] LABS: COLOR PALE YELLOW; LEUKOCYTE ESTERASE,URINE NEGATIVE (NEGATIVE); NITRITE,URINE NEGATIVE (NEGATIVE)
[2016-12-18 10:40] LABS: MUCUS TRACE /lpf (NONE-1+)
[2016-12-18] MEDS ORDERED: INSULIN REGULAR HUMAN 100 UNIT, COSIGN. REQUIRED 1 EA in NS 100 ML IV ONE (10:40)
[2016-12-18] MEDS ORDERED: INSULIN REGULAR HUMAN 100 UNIT/ML IVP ONE (10:40)
[2016-12-18 10:41] LABS: ANION GAP 42 mEq/L (8-16); CALCIUM 10.9 mg/dL (8.5-10.4); CARBON DIOXIDE 13 mEq/l (22-31); CHLORIDE 71 mEq/L (97-110); CREATININE 1.4 mg/dL (0.7-1.3); GLOMERULAR FILTRATION RATE 59; MAGNESIUM 2.2 mg/dL (1.6-2.3); POTASSIUM 4.6 mEq/L (3.5-5.2); SODIUM 126 mEq/L (134-144)
[2016-12-18 10:41] LABS: RBC,URINE NONE SEEN /hpf (0-3); WBC,URINE NONE SEEN /hpf (0-3)
[2016-12-18] MEDS ORDERED: ONDANSETRON 4 MG/2 ML VIAL IVP ONE (11:08)
[2016-12-18 11:20] LABS: GLUCOSE 842 mg/dL (70-100)
[2016-12-18] MEDS: NS 1,000 ML IV ONE ×2 (11:22→12:15)
[2016-12-18] MEDS ORDERED: INSULIN REGULAR HUMAN 100 UNIT/ML IVP PRN (14:18)
[2016-12-18] MEDS ORDERED: D50W 25 GM/50 ML SYR IVP PRN (14:18)
[2016-12-18] MEDS ORDERED: INSULIN REGULAR HUMAN 100 UNIT in NS 100 ML IV SCH (14:18)
[2016-12-18] MEDS ORDERED: ACETAMINOPHEN 325 MG TAB PO PRN (14:34)
[2016-12-18 14:46] LABS: ANION GAP 19 mEq/L (8-16); CALCIUM 9.8 mg/dL (8.5-10.4); CARBON DIOXIDE 21 mEq/l (22-31); CHLORIDE 92 mEq/L (97-110); CREATININE 0.9 mg/dL (0.7-1.3); GLOMERULAR FILTRATION RATE > 60; GLUCOSE 264 mg/dL (70-100); POTASSIUM 3.9 mEq/L (3.5-5.2); SODIUM 132 mEq/L (134-144)
[2016-12-18] MEDS ORDERED: PROTOCOL MAGNESIUM 1 DOSE IV PRN (14:47)
[2016-12-18] MEDS ORDERED: PROTOCOL POTASSIUM 1 DOSE MISC PRN (14:47)
[2016-12-18] MEDS: ONDANSETRON 4 MG/2 ML VIAL IVP PRN ×2 (14:47→19:12)
[2016-12-18] MEDS ORDERED: D5W 1,000 ML IV SCH (14:49)
--- NOTE | 2016-12-18 15:25 | GHP ---
[f rep st] HISTORY AND PHYSICAL DATE OF ADMISSION: 12/18/2016 CHIEF COMPLAINT: DKA. The patient is a 31-year-old male with history of type 1 diabetes recently hospitalized in November with similar presentation. At that time, he was noncompliant with his insulin. He says he has been fine up until this past Thursday evening when he was at work and began feeling very nauseated. He then developed emesis all that evening and all day yesterday. It was nonbloody, nonbilious. Denies fevers, chills or sweats. No diarrhea. 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 He has had stomach cramps. He took his Levemir late night on Thursday but did not take it yesterday since in bed most of the day. He has been prescribed a short-acting insulin by his PCP at clinic but has not used it. He reports his sugars being anywhere from 150-325 in the past month. Denies lows. Denies cough, sore throat, headache or myalgias. . REVIEW OF SYSTEMS: I completed a 10-point review of systems, negative except as noted in HPI. PAST MEDICAL HISTORY: Type 1 diabetes. 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 He lives in [place]. Minimal alcohol. Daily marijuana. No tobacco. PAST SURGICAL HISTORY: None. FAMILY HISTORY: Paternal grandmother with type 2 diabetes. HOME MEDICATIONS: Levemir 30 units b.i.d. ALLERGIES: No known drug allergies. PHYSICAL EXAMINATION: VITAL SIGNS: Temperature 37.0, blood pressure 133/87, heart rate is 120s, respirations 12, 100% on room air. GENERAL: Patient is in no acute distress. HEENT: Dry mucous membranes. PERRLA. EOMI. CV: Tachy, regular. No murmurs, gallops or rubs. LUNGS: Clear to auscultation. No crackles or wheezing. ABDOMEN: Soft, nontender, nondistended. Positive bowel sounds. : Suprapubic tenderness. MUSCULOSKELETAL: 5/5 upper and lower extremity strength. NEURO: 2 through 12 intact. PSYCH: Alert and oriented x3. LABORATORY DATA: WBC is 22, hemoglobin is 16, hematocrit 45, platelets 433. Sodium 126, potassium 4.6, chloride 71, carbon dioxide 13, BUN 46, anion gap 42 , creatinine 1.4, glucose 842. UA: +2 ketones, +3 glucose. Chest x-ray personally reviewed by me, no opacity or effusion. ASSESSMENT/PLAN: 1. Diabetic ketoacidosis: has had multiple hospitalizations due to med noncompliance. He states he has been compliant with his Levemir twice daily but has not been able to follow up with his PCP at [facility]. He will be admitted to the ICU for diabetic ketoacidosis protocol, including insulin drip and aggressive IV fluids. Serial BMPs. ABG pending. 2. Leukocytosis: Suspect secondary stress reaction with diabetic ketoacidosis. Denies infectious symptoms. UA and chest x-ray are negative. 3. Severe metabolic anion gap with acidosis secondary to diabetic ketoacidosis. Plan as stated above with diabetic ketoacidosis protocol. 4. Acute kidney injury secondary to dehydration with emesis and decreased p.o. intake: Aggressive IV fluid resuscitation. 5. Hypovolemic/pseudohyponatremia: Secondary to hyperglycemia and dehydration. We will aggressively treat with IV fluids. 6. Diet: Diabetic once sugar is better controlled. 7. Deep venous thrombosis prophylaxis: Low risk, ambulatory. 8. Disposition: Patient warrants observation admission given acute diabetic ketoacidosis requiring IV insulin and fluids. /[id number]/MODL MTDD
[2016-12-18 15:57] LABS: BASE EXCESS 0.8 mEq/L (-2.5-2.5); BICARBONATE 22 mEq/L (22-26); MEASURED OXYGEN SATURATION 98 % (92-95); PCO2 27 mmHg (34-38); PO2 83 mmHg (65-75); TCO2 23 mEq/L (23-27)
[2016-12-18 15:59] LABS: O2 CONCENTRATIION ROOM AIR % (0-100); P/F RATIO 0 RATIO
[2016-12-18] MEDS ORDERED: D5W NS 1,000 ML IV SCH (17:00)
[2016-12-18 17:15] LABS: HEMOGLOBIN A1C 10.3 % (4.0-6.0)
[2016-12-18 18:28] LABS: ANION GAP 11 mEq/L (8-16); CALCIUM 9.8 mg/dL (8.5-10.4); CARBON DIOXIDE 26 mEq/l (22-31); CHLORIDE 97 mEq/L (97-110); CREATININE 0.7 mg/dL (0.7-1.3); GLOMERULAR FILTRATION RATE > 60; POTASSIUM 3.6 mEq/L (3.5-5.2); SODIUM 134 mEq/L (134-144)
[2016-12-18 18:59] LABS: GLUCOSE 66 mg/dL (70-100)
[2016-12-18] MEDS: POTASSIUM Cl (KCl) 100 ML IV SCH ×3 (20:12→23:12)
[2016-12-18] MEDS: HYDROmorphONE/DILAUDID 1 MG/ML SYR IVP PRN (20:48)
[2016-12-18 22:28] LABS: ANION GAP 7 mEq/L (8-16); CALCIUM 8.9 mg/dL (8.5-10.4); CARBON DIOXIDE 26 mEq/l (22-31); CHLORIDE 97 mEq/L (97-110); CREATININE 0.7 mg/dL (0.7-1.3); GLOMERULAR FILTRATION RATE > 60; GLUCOSE 65 mg/dL (70-100); SODIUM 130 mEq/L (134-144)
[2016-12-19] MEDS: ONDANSETRON 4 MG/2 ML VIAL IVP PRN ×2 (01:06→21:11)
[2016-12-19] MEDS: HYDROmorphONE/DILAUDID 1 MG/ML SYR IVP PRN (01:13)
[2016-12-19] MEDS: PROMETHAZINE HCL 25 MG TAB PO PRN ×4 (01:13→22:39)
[2016-12-19 05:11] LABS: ANION GAP 10 mEq/L (8-16); CALCIUM 8.6 mg/dL (8.5-10.4); CARBON DIOXIDE 23 mEq/l (22-31); CHLORIDE 100 mEq/L (97-110); CREATININE 0.6 mg/dL (0.7-1.3); GLOMERULAR FILTRATION RATE > 60; GLUCOSE 209 mg/dL (70-100); MAGNESIUM 1.9 mg/dL (1.6-2.3); POTASSIUM 4.4 mEq/L (3.5-5.2); SODIUM 133 mEq/L (134-144)
[2016-12-19 08:24] LABS: ALBUMIN 3.5 g/dL (3.5-5.0); BILIRUBIN,TOTAL 1.6 mg/dL (0.1-1.4); BILIRUBIN-CONJUGATED 0.6 mg/dL (0.0-0.5); TOTAL PROTEIN 5.9 g/dL (6.3-8.2)
[2016-12-19] MEDS ORDERED: INSULIN DETEMIR 30 UNIT SC SCH (09:00)
[2016-12-19] MEDS ORDERED: D50W 25 GM/50 ML SYR IVP PRN (09:37)
[2016-12-19] MEDS: NS 1,000 ML IV SCH (10:00)
[2016-12-19] MEDS ORDERED: INSULIN GLARGINE 100 UNITS/ML SYRINGE SC SCH (10:00)
[2016-12-19] MEDS: MBX SOLN 30 ML BOTTLE PO PRN ×2 (10:30→21:43)
[2016-12-19] MEDS: INSULIN LISPRO 100 UNIT/ML SC SCH ×2 (13:11→18:00)
[2016-12-19] MEDS: CALCIUM CARBONATE 500 MG CHEWABLE TAB PO PRN ×2 (13:15→22:39)
--- NOTE | 2016-12-19 15:44 | HOSPPROG ---
Hospitalist Progress Note Assessment/Plan: #Acute DKA: suspect due to medication noncompliance. A1c 10% -off insulin gtt. Levimer 30 units BID at home; start 15U BID Lantus here with min PO intake -PCP at [facility]. [facility] may be better with diabetes educations #Metabolic acidosis: resolved #Abdominal pain: LFTs, lipase WNL. Denies diarrhea and afebrile. May be due to retching with emesis. Some relief with GI cocktail. Tums PRN. If persistent, consider imaging for further evaluation #Leukocytosis: likely stress reaction with DKA. UA/CXR negative. Afebrile #Hypovolemic hyponatremia: improved with IVFs #SAMANTHA: resolved with IVFs #Diet: diabetic #DVT ppx: ambulating Disp: transfer to med surg. Warrant inpatient admission for serial glucose monitoring, IVFs # Subjective: abd cramping. No diarrhea or fever Objective: Vital Signs Temp Pulse Resp BP Pulse Ox 36.6 C 90 18 133/83 H 96 12/19/16 08:00 12/19/16 08:00 12/19/16 08:00 12/19/16 08:00 12/19/16 08:00 Laboratory Results 12/19/16 04:45 12/18/16 12/19/16 12/20/16 05:59 05:59 05:59 Intake Total 5560 Output Total 1675 750 Balance 3885 -750 - Physical Exam Constitutional: no apparent distress Eyes: PERRL Ears, Nose, Mouth, Throat: moist mucous membranes, dry mucous membranes Cardiovascular: regular rate and rhythym Respiratory: no respiratory distress Gastrointestinal: normoactive bowel sounds, soft, non-tender abdomen, tenderness (mild LLQ TTP, +BS) Genitourinary: no bladder fullness Musculoskeletal: full muscle strength Neurologic: AAOx3, CN II-XII Intact Psychiatric: interacting appropriately ICD10 Worksheet Patient Problems: Problems Problem Status Onset DKA (diabetic ketoacidoses) Acute Abdominal pain Acute DKA (diabetic ketoacidoses) Acute Vomiting Acute
[2016-12-19] MEDS ORDERED: PROTOCOL POTASSIUM 1 DOSE MISC PRN (18:12)
[2016-12-19] MEDS: INSULIN GLARGINE 100 UNITS/ML SYRINGE SC SCH (21:11)
[2016-12-19] MEDS ORDERED: ZOLPIDEM TARTRATE 5 MG TAB PO PRN (21:45)
[2016-12-19] MEDS: DRONABINOL 2.5 MG CAP PO SCH (22:04)
[2016-12-20] MEDS: NS 1,000 ML IV SCH ×2 (00:15→22:16)
[2016-12-20] MEDS: ONDANSETRON 4 MG/2 ML VIAL IVP PRN ×3 (03:54→21:15)
[2016-12-20] MEDS: CALCIUM CARBONATE 500 MG CHEWABLE TAB PO PRN ×3 (03:54→21:20)
[2016-12-20] MEDS: HYDROmorphONE/DILAUDID 1 MG/ML SYR IVP PRN ×2 (04:09→07:04)
[2016-12-20] MEDS: PROMETHAZINE HCL 25 MG TAB PO PRN ×2 (04:22→22:16)
[2016-12-20 04:38] LABS: HEMATOCRIT 35.7 % (40.0-51.0); HEMOGLOBIN 12.5 g/dL (13.7-17.5); MEAN CELL HEMOGLOBIN 30.6 pg (27.9-34.1); MEAN CELL VOLUME 87.3 fL (81.5-99.8); RED BLOOD CELL COUNT 4.09 10^6/uL (4.40-6.38); RED CELL DISTRIBUTION WIDTH 11.2 % (11.5-15.2)
[2016-12-20 05:00] LABS: MAGNESIUM 1.9 mg/dL (1.6-2.3)
[2016-12-20] MEDS: DRONABINOL 2.5 MG CAP PO SCH ×2 (09:33→21:21)
[2016-12-20] MEDS: INSULIN LISPRO 100 UNIT/ML SC SCH ×3 (09:35→17:25)
[2016-12-20] MEDS: INSULIN GLARGINE 100 UNITS/ML SYRINGE SC SCH ×2 (09:35→22:36)
--- NOTE | 2016-12-20 15:24 | HOSPPROG ---
Hospitalist Progress Note Assessment/Plan: #Acute DKA: due to vomiting -off insulin gtt. Levimer 30 units BID at home; start 15U BID Lantus here with min PO intake -PCP at [facility]. [facility] may be better with diabetes educations # recurrent episodes of vomiting * suspect cannabis hyperemesis syndrome * he does smoke a lot of marijuana * he states that hot showers do help the symptoms #Metabolic acidosis: resolved #Abdominal pain * resolving #Leukocytosis: likely stress reaction with DKA. UA/CXR negative * repeat CBC normal #Hypovolemic hyponatremia: improved with IVFs #SAMANTHA: resolved with IVFs #Diet: diabetic #DVT ppx: ambulating * disposition * will keep another day as he is not tolerating full p.o. intake yet Subjective: still feeling somewhat nauseous although has eaten some Objective: Vital Signs Temp Pulse Resp BP Pulse Ox 36.8 C 65 14 109/68 97 12/20/16 08:00 12/20/16 08:00 12/20/16 08:00 12/20/16 08:00 12/20/16 08:00 Laboratory Results 12/20/16 04:21 12/20/16 04:21 12/19/16 12/20/16 12/21/16 05:59 05:59 05:59 Intake Total 5560 2729 Output Total 1675 1400 Balance 3885 1329 - Physical Exam Constitutional: no apparent distress, appears nourished, not in pain Eyes: anicteric sclera, EOMI Ears, Nose, Mouth, Throat: moist mucous membranes, hearing normal, ears appear normal Cardiovascular: regular rate and rhythym, no murmur, rub, or gallop Respiratory: no respiratory distress, no rales or rhonchi, clear to auscultation Gastrointestinal: normoactive bowel sounds, soft, non-tender abdomen, no palpable masses Skin: warm Neurologic: AAOx3 Psychiatric: interacting appropriately, not anxious, not encephalopathic, thought process linear ICD10 Worksheet Patient Problems: Problems Problem Status Onset DKA (diabetic ketoacidoses) Acute Abdominal pain Acute DKA (diabetic ketoacidoses) Acute Vomiting Acute
[2016-12-20 16:09] VITALS: RESP 16
[2016-12-20 18:08] LABS: POTASSIUM 3.5 mEq/L (3.5-5.2)
[2016-12-20] MEDS ORDERED: POTASSIUM CL 10 MEQ TAB PO ONE (19:18)
[2016-12-20] MEDS ORDERED: BISACODYL 5 MG EC TAB PO PRN (22:30)
[2016-12-20] MEDS ORDERED: LORazepam 1 MG TAB PO PRN (22:35)
[2016-12-20] MEDS: MBX SOLN 30 ML BOTTLE PO PRN (22:38)
[2016-12-20] MEDS: POTASSIUM Cl (KCl) 100 ML IV SCH (22:53)
[2016-12-21] MEDS: POTASSIUM Cl (KCl) 100 ML IV SCH ×2 (00:19→01:48)
[2016-12-21] MEDS: ONDANSETRON DISINTEGRATING 4 MG TAB PO PRN ×2 (05:13→09:27)
[2016-12-21] MEDS: CALCIUM CARBONATE 500 MG CHEWABLE TAB PO PRN (05:15)
[2016-12-21] MEDS: NS 1,000 ML IV SCH (05:20)
[2016-12-21 06:54] LABS: POTASSIUM 3.8 mEq/L (3.5-5.2)
[2016-12-21] MEDS ORDERED: POTASSIUM CL 10 MEQ TAB PO ONE (08:07)
[2016-12-21 08:42] VITALS: BP 134/89; PULSE 61; TEMP 98.4; O2SAT 97
[2016-12-21] MEDS: INSULIN LISPRO 100 UNIT/ML SC SCH (08:51)
[2016-12-21] MEDS: DRONABINOL 2.5 MG CAP PO SCH (09:27)
[2016-12-21] MEDS: INSULIN GLARGINE 100 UNITS/ML SYRINGE SC SCH (09:28)
--- NOTE | 2016-12-21 12:29 | GDS ---
[f rep st] DISCHARGE SUMMARY DISCHARGE DIAGNOSES: 1. Diabetic ketoacidosis. 2. Type 1 diabetes. 3. Possible cannabis hyperemesis syndrome. HISTORY: This is a 31-year-old male presenting with nausea, vomiting, and DKA. HOSPITAL COURSE: Patient was admitted and placed on DKA protocol. His gap closed and he was transf erred out of the ICU. Had elevated white blood cell count, which resolved. He did not have any abd ominal pain, just vomiting. He states that he smokes a large amount of marijuana and that hot showe rs do help his nausea and vomiting when he gets it. He has been hospitalized a couple times in the last several months with the same symptoms. He is ab le to tolerate p.o. although he is not eating a lot currently. He is willing to be discharged home. I do not think there is any serious intraabdominal process. He does not have any abdominal pain o r tenderness and his white blood cell count is normal. TIME SPENT: Greater than 30 minutes was spent on discharge. /[id number]/MODL
== END 2016-12-21 12:27 | disposition home or self-care (01) | DRG 638 ==
LOC: F2N 12:43 → F3E 12-19 22:35
PROVIDERS: ADMIT Internal Medicine; ATTEND Internal Medicine
DX: E10.10 Type 1 diabetes mellitus with ketoacidosis without coma (principal); F12.90 Cannabis use, unspecified, uncomplicated; R11.2 Nausea with vomiting, unspecified; E87.1 Hypo-osmolality and hyponatremia; E86.0 Dehydration; Z87.891 Personal history of nicotine dependence; Z91.14 Patient's other noncompliance with medication regimen
CPT/HCPCS: 82947-QW; 96365; 96366; G0378; J1170; J1815; J2405

== ENCOUNTER 2017-03-18 10:11 | Observation (INO) | payer OTHER ==
[2017-03-18] MEDS ORDERED: ONDANSETRON 4 MG/2 ML VIAL ONE (10:32)
[2017-03-18] MEDS ORDERED: ONDANSETRON 4 MG/2 ML VIAL IVP ONE ×2 (10:39→11:55)
[2017-03-18] MEDS ORDERED: NS 1,000 ML IV ONE ×2 (10:39→11:25)
[2017-03-18 11:30] LABS: % IMMATURE GRANULYOCYTES 0.6 % (0.0-1.1); ABSOLUTE IMMATURE GRANULOCYTES 0.06 10^3/uL (0.00-0.10); ADD DIFF? NO; ADD MORPH? NO; ADD SCAN? NO; ATYPICAL LYMPHOCYTE FLAG 10 (0-99); FRAGMENT RBC FLAG 0 (0-99); HEMATOCRIT 46.7 % (40.0-51.0); HEMOGLOBIN 16.3 g/dL (13.7-17.5); LEFT SHIFT FLG 10 (0-99); LIPEMIA HEMOLYSIS FLAG 90 (0-99); MEAN CELL HEMOGLOBIN 30.5 pg (27.9-34.1); MEAN CELL HEMOGLOBIN CONCENTR. 34.9 g/dL (32.4-36.7); MEAN CELL VOLUME 87.5 fL (81.5-99.8); PLATELET CLUMPS FLAG 10 (0-99); PLATELET COUNT 376 10^3/uL (150-400); RED BLOOD CELL COUNT 5.34 10^6/uL (4.40-6.38); RED CELL DISTRIBUTION WIDTH 12.1 % (11.5-15.2)
[2017-03-18 11:37] LABS: ANION GAP 17 mEq/L (8-16); CARBON DIOXIDE 21 mEq/l (22-31); CHLORIDE 111 mEq/L (97-110); CREATININE 0.6 mg/dL (0.7-1.3); GLOMERULAR FILTRATION RATE > 60; GLUCOSE 99 mg/dL (70-100); POTASSIUM 3.7 mEq/L (3.5-5.2); SODIUM 149 mEq/L (134-144)
[2017-03-18] MEDS ORDERED: LORazepam 2 MG/ML INJ ONE (12:54)
[2017-03-18] MEDS ORDERED: LORazepam 2 MG/ML INJ IVP ONE (13:04)
[2017-03-18] MEDS ORDERED: NS 1,000 ML IV SCH (13:45)
--- NOTE | 2017-03-18 13:53 | EDPHY ---
H & P Stated Complaint: n/v hx vomiting/daily thc use/diabetic/states glucose has been in 200 range Time Seen by Provider: 03/18/17 11:30 HPI/ROS: CHIEF COMPLAINT: Intractable vomiting HISTORY OF PRESENT ILLNESS: Patient presents to the ED with a 1 day history of intractable vomiting. The patient does have a history of diabetes. He has had hospitalizations for diabetic ketoacidosis in the past. The patient reports he has been using his insulin as prescribed. The patient denies prior history of significant severe vomiting. The patient does report he is a daily marijuana user. The patient denies any diarrhea. He has no complaints of fever, cough or congestion. The patient was last hospitalized in December with diabetic ketoacidosis. The patient reports moderate to severe ongoing nausea and vomiting. The patient has no prior history of gastroparesis. REVIEW OF SYSTEMS: A comprehensive 10 point review of systems is otherwise negative aside from elements mentioned in the history of present illness. Source: Patient Exam Limitations: No limitations - Personal History Current Tetanus/Diphtheria Vaccine: Yes Tetanus Vaccine Date: WITHIN 10 YRS - Medical/Surgical History Hx Asthma: No Hx Chronic Respiratory Disease: No Hx Diabetes: Yes Hx Cardiac Disease: No Hx Renal Disease: No Hx Cirrhosis: No Hx Alcoholism: No Hx HIV/AIDS: No Hx Splenectomy or Spleen Trauma: No Other PMH: type 1 DIABETES. occ THC use - Social History Smoking Status: Current some day smoker - Physical Exam Exam: General Appearance: Alert, mild distress secondary to active nausea and vomiting Eyes: Pupils equal and round no pallor or injection ENT, Mouth: Mucous membranes moist Respiratory: There are no retractions, lungs are clear to auscultation Cardiovascular: Tachycardic Gastrointestinal: Minimal epigastric tenderness to palpation Neurological: A&O, normal motor function, normal sensory exam, normal cranial nerves Skin: Diaphoretic Musculoskeletal: Neck is supple nontender Extremities: symmetrical, full range of motion Constitutional: Initial Vital Signs Temperature (C) 36.3 C 03/18/17 10:15 Heart Rate 115 H 03/18/17 10:15 Respiratory Rate 27 H 03/18/17 10:15 Blood Pressure 134/91 H 03/18/17 10:15 O2 Sat (%) 100 03/18/17 10:15 O2 Delivery Mode Room Air Allergies/Adverse Reactions: No Known Allergies Allergy (Verified 03/18/17 10:15) Home Medications: Medication Instructions Recorded Insulin Detemir [Levemir] 35 units SC DAILY 12/18/16 Gabapentin [Neurontin 300 MG (*)] 600 mg PO TID 03/18/17 Insulin Aspart [novoLOG] 0 unit SC TIDMEAL 03/18/17 Insulin Detemir [Levemir] 25 unit SQ HS 03/18/17 Medical Decision Making ED Course/Re-evaluation: The patient presents to the ED with acute nausea, vomiting and dehydration. The patient had an IV established. He received 2 L of normal saline. The patient has no evidence of hyperglycemia. The patient does have a slight anion gap of 17. The patient received IV Ativan, Zofran and IV fluid rehydration. The patient had serial examinations in the ED by myself. The patient continues to have ongoing severe vomiting. Given the patient's history of diabetes, I do feel that he should be admitted to the hospital for observation of his ongoing vomiting, dehydration and metabolic issues. Consultation was made with the hospitalist service. The patient will be admitted by Dr. Gretta Mai. Patient was re-evaluated by myself at 2:00 p.m.. The patient is feeling better however still continues to be quite symptomatic. Differential Diagnosis: Differential diagnosis considered includes diabetic ketoacidosis, metabolic abnormality, renal failure, dehydration, cyclic vomiting syndrome - Data Points Laboratory Results: Laboratory Results 03/18/17 10:35 03/18/17 10:35 03/18/17 03/18/17 10:35 10:35 WBC 10.41 10^3/uL H 10^3/uL (3.80-9.50) RBC 5.34 10^6/uL 10^6/uL (4.40-6.38) Hgb 16.3 g/dL g/dL (13.7-17.5) Hct 46.7 % % (40.0-51.0) MCV 87.5 fL fL (81.5-99.8) MCH 30.5 pg pg (27.9-34.1) MCHC 34.9 g/dL g/dL (32.4-36.7) RDW 12.1 % % (11.5-15.2) Plt Count 376 10^3/uL 10^3/uL (150-400) MPV 10.0 fL fL (8.7-11.7) Neut % (Auto) 71.1 % % (39.3-74.2) Lymph % (Auto) 20.6 % % (15.0-45.0) [place] % (Auto) 6.1 % % (4.5-13.0) Eos % (Auto) 0.8 % % (0.6-7.6) Baso % (Auto) 0.8 % % (0.3-1.7) Nucleat RBC Rel Count 0.0 % % (0.0-0.2) Absolute Neuts (auto) 7.41 10^3/uL H 10^3/uL (1.70-6.50) Absolute Lymphs (auto) 2.14 10^3/uL 10^3/uL (1.00-3.00) Absolute Monos (auto) 0.64 10^3/uL 10^3/uL (0.30-0.80) Absolute Eos (auto) 0.08 10^3/uL 10^3/uL (0.03-0.40) Absolute Basos (auto) 0.08 10^3/uL 10^3/uL (0.02-0.10) Absolute Nucleated RBC 0.00 10^3/uL 10^3/uL (0-0.01) Immature Gran % 0.6 % % (0.0-1.1) Immature Gran # 0.06 10^3/uL 10^3/uL (0.00-0.10) Sodium 149 mEq/L H mEq/L (134-144) Potassium 3.7 mEq/L mEq/L (3.5-5.2) Chloride 111 mEq/L H mEq/L (97-110) Carbon Dioxide 21 mEq/l L mEq/l (22-31) Anion Gap 17 mEq/L H mEq/L (8-16) BUN 22 mg/dL mg/dL (7-23) Creatinine 0.6 mg/dL L mg/dL (0.7-1.3) Estimated GFR > 60 Glucose 99 mg/dL mg/dL (70-100) Calcium 11.0 mg/dL H mg/dL (8.5-10.4) Phosphorus 1.8 mg/dL L mg/dL (2.5-4.5) Medications Given: Discontinued Medications Sodium Chloride (Ns) 1,000 mls @ 0 mls/hr IV ONCE ONE PRN Reason: Wide Open Stop: 03/18/17 10:40 Last Admin: 03/18/17 10:39 Dose: 1,000 mls Sodium Chloride (Ns) 1,000 mls @ 0 mls/hr IV EDNOW ONE; Wide Open PRN Reason: Protocol Stop: 03/18/17 11:26 Last Admin: 03/18/17 11:32 Dose: 1,000 mls Lorazepam (Ativan Injection) 1 mg IVP EDNOW ONE Stop: 03/18/17 13:05 Last Admin: 03/18/17 13:05 Dose: 1 mg Ondansetron HCl (Zofran) 4 mg IVP EDNOW ONE Stop: 03/18/17 10:40 Last Admin: 03/18/17 10:40 Dose: 4 mg Ondansetron HCl (Zofran) 4 mg IVP EDNOW ONE Stop: 03/18/17 11:56 Last Admin: 03/18/17 11:59 Dose: 4 mg Departure - Departure Disposition: [facility] Clinical Impression: Dehydration, Intractable vomiting, Diabetes Condition: Fair
[2017-03-18 14:00] LABS: ANION GAP 13 mEq/L (8-16); CALCIUM 9.1 mg/dL (8.5-10.4); CARBON DIOXIDE 21 mEq/l (22-31); CHLORIDE 112 mEq/L (97-110); CREATININE 0.6 mg/dL (0.7-1.3); GLOMERULAR FILTRATION RATE > 60; GLUCOSE 131 mg/dL (70-100); POTASSIUM 4.2 mEq/L (3.5-5.2); SODIUM 146 mEq/L (134-144)
[2017-03-18] MEDS ORDERED: oxyCODONE IR 5 MG TAB PO PRN (14:14)
[2017-03-18] MEDS ORDERED: ONDANSETRON 4 MG/2 ML VIAL IVP PRN (14:14)
[2017-03-18] MEDS ORDERED: ONDANSETRON DISINTEGRATING 4 MG TAB PO PRN (14:14)
[2017-03-18] MEDS ORDERED: PROMETHAZINE HCL 25 MG/ML INJ IVP PRN (14:14)
[2017-03-18] MEDS ORDERED: ACETAMINOPHEN 325 MG TAB PO PRN (14:14)
[2017-03-18] MEDS ORDERED: D50W 25 GM/50 ML SYR IVP PRN (14:18)
[2017-03-18 15:11] LABS: ALBUMIN 3.9 g/dL (3.5-5.0); BILIRUBIN,TOTAL 0.8 mg/dL (0.1-1.4); BILIRUBIN-CONJUGATED 0.3 mg/dL (0.0-0.5); BILIRUBIN-UNCONJUGATED 0.5 mg/dL (0.0-1.1); TOTAL PROTEIN 6.4 g/dL (6.3-8.2)
[2017-03-18] MEDS: 1/2 NS 1,000 ML IV SCH ×2 (15:49→22:33)
--- NOTE | 2017-03-18 17:06 | PDGENHP ---
History and Physical - Chief Complaint Nausea and vomiting - History of Present Illness 31 yo male with h/o type 1 DM and recent hospitalization for DKA presented to ED with <24 hrs of nausea and vomiting. He has h/o heavy alcohol use, but states he cut back significantly over past several months to only once per week. He had a couple small tastes of beer at a restaurant and developed abdominal pain, then vomited multiple times. No hematemesis or coffee ground emesis. No diarrhea. No fevers/chills. He uses marijuana daily. He denies h/ o cyclic vomiting episodes. This occurred a few months ago, at which time he was admitted with DKA. He has been more compliant with his insulin since then. In the ED, he received 2L NS, 8 mg Zofran and continues to have symptoms. He is admitted for further management. History Information - Allergies/Home Medication List Allergies/Adverse Reactions: No Known Allergies Allergy (Verified 03/18/17 10:15) Home Medications: Insulin Detemir [Levemir] 35 units SC DAILY 12/18/16 [Last Taken 03/18/17] Gabapentin [Neurontin 300 MG (*)] 600 mg PO TID 03/18/17 [Last Taken 03/18/17] Insulin Aspart [novoLOG] 0 unit SC TIDMEAL 03/18/17 [Last Taken 03/17/17] Insulin Detemir [Levemir] 25 unit SQ HS 03/18/17 [Last Taken 03/17/17] I have personally reviewed and updated: family history, medical history, social history, surgical history - Past Medical History diabetes type 1 Additional medical history: daily marijuana use, h/o alcohol abuse - Surgical History Reports: no pertinent surgical hx - Family History Positive for: diabetes type II - Social History Smoking Status: Current some day smoker Alcohol Use: Occasionally Drug Use: Marijuana 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 Has a girlfriend Review of Systems ROS: 10pt was reviewed & negative except for what was stated in HPI & below Physical Exam Temp Pulse Resp BP Pulse Ox 36.4 C 62 18 132/86 H 100 03/18/17 15:14 03/18/17 15:14 03/18/17 15:14 03/18/17 15:14 03/18/17 15:14 Constitutional: no apparent distress Eyes: PERRL Ears, Nose, Mouth, Throat: moist mucous membranes Cardiovascular: regular rate and rhythym, no murmur, rub, or gallop Respiratory: no respiratory distress, clear to auscultation Gastrointestinal: normoactive bowel sounds, soft, non-tender abdomen Skin: warm Musculoskeletal: full muscle strength Neurologic: AAOx3 Psychiatric: interacting appropriately Lab Data & Imaging Review 03/18/17 10:35 03/18/17 13:35 WBC 10.41 10^3/uL (3.80-9.50) H 03/18/17 10:35 RBC 5.34 10^6/uL (4.40-6.38) 03/18/17 10:35 Hgb 16.3 g/dL (13.7-17.5) 03/18/17 10:35 Hct 46.7 % (40.0-51.0) 03/18/17 10:35 MCV 87.5 fL (81.5-99.8) 03/18/17 10:35 MCH 30.5 pg (27.9-34.1) 03/18/17 10:35 MCHC 34.9 g/dL (32.4-36.7) 03/18/17 10:35 RDW 12.1 % (11.5-15.2) 03/18/17 10:35 Plt Count 376 10^3/uL (150-400) 03/18/17 10:35 MPV 10.0 fL (8.7-11.7) 03/18/17 10:35 Neut % (Auto) 71.1 % (39.3-74.2) 03/18/17 10:35 Lymph % (Auto) 20.6 % (15.0-45.0) 03/18/17 10:35 [place] % (Auto) 6.1 % (4.5-13.0) 03/18/17 10:35 Eos % (Auto) 0.8 % (0.6-7.6) 03/18/17 10:35 Baso % (Auto) 0.8 % (0.3-1.7) 03/18/17 10:35 Nucleat RBC Rel Count 0.0 % (0.0-0.2) 03/18/17 10:35 Absolute Neuts (auto) 7.41 10^3/uL (1.70-6.50) H 03/18/17 10:35 Absolute Lymphs (auto) 2.14 10^3/uL (1.00-3.00) 03/18/17 10:35 Absolute Monos (auto) 0.64 10^3/uL (0.30-0.80) 03/18/17 10:35 Absolute Eos (auto) 0.08 10^3/uL (0.03-0.40) 03/18/17 10:35 Absolute Basos (auto) 0.08 10^3/uL (0.02-0.10) 03/18/17 10:35 Absolute Nucleated RBC 0.00 10^3/uL (0-0.01) 03/18/17 10:35 Immature Gran % 0.6 % (0.0-1.1) 03/18/17 10:35 Immature Gran # 0.06 10^3/uL (0.00-0.10) 03/18/17 10:35 Sodium 146 mEq/L (134-144) H 03/18/17 13:35 Potassium 4.2 mEq/L (3.5-5.2) 03/18/17 13:35 Chloride 112 mEq/L (97-110) H 03/18/17 13:35 Carbon Dioxide 21 mEq/l (22-31) L 03/18/17 13:35 Anion Gap 13 mEq/L (8-16) 03/18/17 13:35 BUN 22 mg/dL (7-23) 03/18/17 13:35 Creatinine 0.6 mg/dL (0.7-1.3) L 03/18/17 13:35 Estimated GFR > 60 03/18/17 13:35 Glucose 131 mg/dL (70-100) H 03/18/17 13:35 Calcium 9.1 mg/dL (8.5-10.4) D 03/18/17 13:35 Phosphorus 1.8 mg/dL (2.5-4.5) L 03/18/17 10:35 Total Bilirubin 0.8 mg/dL (0.1-1.4) 03/18/17 13:35 Conjugated Bilirubin 0.3 mg/dL (0.0-0.5) 03/18/17 13:35 Unconjugated Bilirubin 0.5 mg/dL (0.0-1.1) 03/18/17 13:35 AST 25 IU/L (17-59) 03/18/17 13:35 ALT 27 IU/L (21-72) 03/18/17 13:35 Alkaline Phosphatase 68 IU/L (38-126) 03/18/17 13:35 Total Protein 6.4 g/dL (6.3-8.2) 03/18/17 13:35 Albumin 3.9 g/dL (3.5-5.0) 03/18/17 13:35 Lipase 50.0 IU/L (23-300) 03/18/17 13:35 Assessment & Plan Assessment: Abdominal pain, nausea and vomiting - possible etiologies include gastritis (? alcohol related though pt reports having cut back) vs pancreatitis (lipase nl) vs viral / infectious (no diarrhea) vs PUD vs opioid withdrawal (no reported history but with other drug use worth considering) vs cannabis hyperemesis syndrome. -Hydrate with IVF's -Supportive care with anti-emetics -Protonix -If not improving, consider GI consult / egd Type 1 DM - presented with very mild DKA, minimal acidosis (CO2 21), AG 17, though gap now closed after 2 L NS. BG's have been normal. -Resume outpt insulin at 20% dose reduction given his N/V thought pt is eating -1/2 NS at 150/hr for now, recheck labs in am Tobacco use - prn nicoderm Marijuana use - discussed possible relation to N/V, recommend cessation Full code DVT PPLX - low risk Dispo - obs
[2017-03-18] MEDS: GABAPENTIN 300 MG CAP PO SCH ×2 (17:29→22:16)
[2017-03-18] MEDS: PANTOPRAZOLE SODIUM 40 MG TAB PO SCH (17:30)
[2017-03-18] MEDS: INSULIN LISPRO 100 UNIT/ML SC SCH (18:13)
[2017-03-18 18:23] LABS: PHENCYCLIDINE URINE BCH < 6 ng/ml (NEGATIVE); PHENCYCLIDINE URINE BCH NEGATIVE (NEGATIVE)
[2017-03-18 19:26] LABS: TETRAHYDROCANNABINOL URINE > 800 ng/mL (NEGATIVE)
[2017-03-18 20:17] VITALS: RESP 16
[2017-03-18] MEDS: INSULIN DETEMIR 20 UNIT SQ SCH ×2 (22:17→22:30)
[2017-03-19 04:43] LABS: % IMMATURE GRANULYOCYTES 0.3 % (0.0-1.1); ABSOLUTE IMMATURE GRANULOCYTES 0.04 10^3/uL (0.00-0.10); ADD DIFF? NO; ADD MORPH? NO; ADD SCAN? NO; ATYPICAL LYMPHOCYTE FLAG 10 (0-99); FRAGMENT RBC FLAG 0 (0-99); HEMATOCRIT 39.7 % (40.0-51.0); HEMOGLOBIN 14.1 g/dL (13.7-17.5); LEFT SHIFT FLG 10 (0-99); LIPEMIA HEMOLYSIS FLAG 90 (0-99); MEAN CELL HEMOGLOBIN 31.2 pg (27.9-34.1); MEAN CELL HEMOGLOBIN CONCENTR. 35.5 g/dL (32.4-36.7); MEAN CELL VOLUME 87.8 fL (81.5-99.8); MEAN PLATELET VOLUME 9.8 fL (8.7-11.7); PLATELET CLUMPS FLAG 10 (0-99); PLATELET COUNT 254 10^3/uL (150-400); RED BLOOD CELL COUNT 4.52 10^6/uL (4.40-6.38); RED CELL DISTRIBUTION WIDTH 11.9 % (11.5-15.2)
[2017-03-19 05:01] LABS: ANION GAP 9 mEq/L (8-16); CALCIUM 9.4 mg/dL (8.5-10.4); CARBON DIOXIDE 23 mEq/l (22-31); CHLORIDE 108 mEq/L (97-110); CREATININE 0.6 mg/dL (0.7-1.3); GLOMERULAR FILTRATION RATE > 60; GLUCOSE 152 mg/dL (70-100); SODIUM 140 mEq/L (134-144)
[2017-03-19] MEDS ORDERED: D10W 250 ML PRN HYPOGLYCEMIA IV (08:00)
[2017-03-19] MEDS ORDERED: INSULIN DETEMIR 30 UNIT SC SCH (09:00)
[2017-03-19] MEDS: PANTOPRAZOLE SODIUM 40 MG TAB PO SCH (09:26)
[2017-03-19] MEDS: GABAPENTIN 300 MG CAP PO SCH (09:27)
[2017-03-19] MEDS: INSULIN LISPRO 100 UNIT/ML SC SCH (09:28)
[2017-03-19 10:21] VITALS: BP 128/85; PULSE 89; TEMP 98; O2SAT 97
--- NOTE | 2017-03-20 08:59 | GDS ---
[f rep st] DISCHARGE SUMMARY DISCHARGE DIAGNOSES: 1. Nausea, vomiting, resolved. 2. Mild diabetic ketoacidosis, resolved. 3. Type 1 diabetes. 4. Polysubstance abuse. CONSULTATIONS: None. HISTORY: For details please see dictated history and physical dated March 18, 2017. In brief the donnie rizo is a 31-year-old male with a history of type 1 diabetes, daily marijuana use and history of al cohol and cocaine use, who presented to the emergency department complaining of epigastric abdominal pain associated with nausea and vomiting. He was admitted to the hospital for further management. HOSPITAL COURSE: Patient admitted to the medical-surgical unit. He received aggressive IV fluid re suscitation and antiemetics. His initial labs were concerning for an evolving DKA process with mild acidemia and mildly elevated anion gap of 17. He received aggressive IV fluid resuscitation and fo llowup labs revealed his anion gap had closed. The following morning his anion gap was down to 9 wi th a CO2 of 23. Throughout this process he maintained relatively good glycemic control. Blood suga r in the 100-200 range. The differential for his nausea and vomiting includes possible gastritis, p ossibly related to alcohol, given the onset with beer intake. Peptic ulcer disease is also in the d ifferential as well as possible viral infection. He had no diarrhea and no fevers. His lipase was normal. Also considered cannabis hyperemesis syndrome as his urine THC screen was greater than 800. In addition, he had a positive urine cocaine screen with a level of 1500. Urine drug screen was o therwise negative. I also considered opioid withdrawal, though he denies a history of opiates. His symptoms completely resolved the following morning, he was tolerating full diet. He will be discha rged home on PPI therapy. I have advised him to abstain from marijuana and alcohol as either of the se substances could be a contributing factor to his symptoms. DISPOSITION: Patient is discharged home in stable condition. FOLLOWUP: He is to follow up with his primary care physician. DISCHARGE MEDICATIONS: Please see Sensser for complete updated outpatient medication list. New me dications on discharge include Protonix 40 mg p.o. daily #30, no refills. He will continue his outp atient insulin dosing as previously prescribed in addition to his outpatient gabapentin. /[id number]/MODL
== END 2017-03-19 10:58 | disposition home or self-care (01) ==
LOC: F1N 15:51
PROVIDERS: ADMIT Hospitalist; ATTEND Hospitalist
DX: R11.2 Nausea with vomiting, unspecified (principal); E10.10 Type 1 diabetes mellitus with ketoacidosis without coma; E86.0 Dehydration; F10.120 Alcohol abuse with intoxication, uncomplicated; F12.120 Cannabis abuse with intoxication, uncomplicated; F14.120 Cocaine abuse with intoxication, uncomplicated; F17.210 Nicotine dependence, cigarettes, uncomplicated
CPT/HCPCS: 96361; 96374; 96375; 96376; 99285; G0378; 80307; G0480; J2060; J2405; J2550

== ENCOUNTER 2017-03-20 18:42 | Emergency (ER) | payer OTHER ==
[2017-03-20 18:47] VITALS: RESP 16
--- NOTE | 2017-03-20 18:58 | EDPHY ---
H & P Stated Complaint: N/V with type1 DM Time Seen by Provider: 03/20/17 18:58 - Personal History Current Tetanus/Diphtheria Vaccine: Yes Current Tetanus Diphtheria and Acellular Pertussis (TDAP): Yes Tetanus Vaccine Date: WITHIN 10 YRS - Medical/Surgical History Hx Asthma: No Hx Chronic Respiratory Disease: No Hx Diabetes: Yes Hx Cardiac Disease: No Hx Renal Disease: No Hx Cirrhosis: No Hx Alcoholism: No Hx HIV/AIDS: No Hx Splenectomy or Spleen Trauma: No Other PMH: type 1 DIABETES - Social History Smoking Status: Former smoker Constitutional: Initial Vital Signs Temperature (C) 36.9 C 03/20/17 18:45 Heart Rate 88 03/20/17 18:45 Respiratory Rate 16 03/20/17 18:45 Blood Pressure 144/98 H 03/20/17 18:45 O2 Sat (%) 100 03/20/17 18:45 O2 Delivery Mode Room Air Allergies/Adverse Reactions: No Known Allergies Allergy (Verified 03/18/17 10:15) Home Medications: Medication Instructions Recorded Insulin Detemir [Levemir] 35 units SC DAILY 12/18/16 Gabapentin [Neurontin 300 MG (*)] 600 mg PO TID 03/18/17 Insulin Aspart [novoLOG] 0 unit SC TIDMEAL 03/18/17 Insulin Detemir [Levemir] 25 unit SQ HS 03/18/17 Pantoprazole Sodium [Protonix 40mg 40 mg PO DAILY #30 tab 03/19/17 (*)] Ondansetron Odt [Zofran Odt 4 mg 4 mg PO Q4 PRN #10 tab 03/20/17 (RX)] Medical Decision Making ED Course/Re-evaluation: CHIEF COMPLAINT: Vomiting HISTORY OF PRESENT ILLNESS: The patient is a 31 y/o male with a history of diabetes complaining of recurrent vomiting onset 06:00 this morning. He was admitted on 03/18/17 for the same symptoms and thought he was in DKA. There was some question that his symptoms were potentially related to opioid withdrawal, though the patient denies this. He says he was able to eat normally last night, but woke again with vomiting this morning. He has some abdominal cramping, but denies pain. No diarrhea, fever, cough, or other complaints. His symptoms are alleviated somewhat by showering. He reports he is using insulin regularly. REVIEW OF SYSTEMS: A 10 point review of systems was performed and is negative with the exception of the elements mentioned in the history of present illness. PHYSICAL EXAM: HR, BP, O2 Sat, RR. Temp noted General Appearance: Alert, well hydrated, appropriate, and non-toxic appearing. Head: Atraumatic without scalp tenderness or obvious injury Eyes: Pupils equal, round, reactive to light and accommodation, EOMI, no trauma , no injection. Ears: Clear bilaterally, no perforation, normal landmarks Nose: Atraumatic, no rhinorrhea, clear. Throat: There is no erythema or exudates, no lesions, normal tonsils, mucus membranes moist. Neck: Supple, nontender, no lymphadenopathy. Respiratory: No retractions, no distress, no wheezes, and no accessory muscle use. Lungs are clear to auscultation bilaterally. Cardiovascular: Regular rate and rhythm, no murmurs, rubs, or gallops. Good capillary refill all extremities. Gastrointestinal: Abdomen is soft, nontender, non-distended, no masses, no rebound, no guarding, no peritoneal signs. Musculoskeletal: Normal active ROM of all extremities, atraumatic. Neurological: Alert, appropriate, and interactive. Nonfocal neuro exam. Skin: No rashes, good turgor, no nodules on palpation. Past medical history: Diabetes 1, DKA, polysubstance abuse Past surgical history: denies Family history: noncontributory Social history: Daily marijuana use, friend at bedside. Prior medical records reviewed including admission 03/18/17 for the same symptoms. DIFFERENTIAL DIAGNOSIS: The differential diagnosis for the patient's nausea and vomiting included but was not limited to gastroenteritis, diabetic ketoacidosis, cyclic vomiting, gastritis, appendicitis, and medication side effect. MEDICAL DECISION MAKING: This is a 31 y/o male who returns to the ED one day after hospital discharge with recurrent vomiting. He is well-appearing on exam with no abdominal tenderness. His ISTAT shows a BGL 230. Plan for IV, labs, UA, and symptom management. 1L IV NS and 4mg IV Zofran administered. Reassessed patient and discussed work up. Labs show mildly elevated WBC, LFTs and lipase are normal. His sugar is likely elevated due to an infectious process. His abdomen remains benign. He continues to feel nauseated, but has not vomited. Plan for PO trial. Patient is tolerating PO fluids and food well. He feels improved and ready to go home with script for Zofran. Return precautions given. He is comfortable with plan for follow up. - Data Points Laboratory Results: Laboratory Results 03/20/17 19:18 03/20/17 19:18 03/20/17 03/20/17 03/20/17 19:18 19:18 19:17 WBC 12.79 10^3/uL H 10^3/uL (3.80-9.50) RBC 4.62 10^6/uL 10^6/uL (4.40-6.38) Hgb 14.2 g/dL g/dL (13.7-17.5) POC Hgb 15.0 gm/dL gm/dL (13.7-17.5) Hct 39.6 % L % (40.0-51.0) POC Hct 44 % % (40-51) MCV 85.7 fL fL (81.5-99.8) MCH 30.7 pg pg (27.9-34.1) MCHC 35.9 g/dL g/dL (32.4-36.7) RDW 11.9 % % (11.5-15.2) Plt Count 266 10^3/uL 10^3/uL (150-400) MPV 9.8 fL fL (8.7-11.7) Neut % (Auto) 86.2 % H % (39.3-74.2) Lymph % (Auto) 7.5 % L % (15.0-45.0) [place] % (Auto) 5.4 % % (4.5-13.0) Eos % (Auto) 0.0 % L % (0.6-7.6) Baso % (Auto) 0.2 % L % (0.3-1.7) Nucleat RBC Rel Count 0.0 % % (0.0-0.2) Absolute Neuts (auto) 11.02 10^3/uL H 10^3/uL (1.70-6.50) Absolute Lymphs (auto) 0.96 10^3/uL L 10^3/uL (1.00-3.00) Absolute Monos (auto) 0.69 10^3/uL 10^3/uL (0.30-0.80) Absolute Eos (auto) 0.00 10^3/uL L 10^3/uL (0.03-0.40) Absolute Basos (auto) 0.03 10^3/uL 10^3/uL (0.02-0.10) Absolute Nucleated RBC 0.00 10^3/uL 10^3/uL (0-0.01) Immature Gran % 0.7 % % (0.0-1.1) Immature Gran # 0.09 10^3/uL 10^3/uL (0.00-0.10) POC Sodium 141 mEq/L mEq/L (134-144) Sodium 140 mEq/L mEq/L (134-144) POC Potassium 3.3 mEq/L mEq/L (3.3-5.0) Potassium 3.6 mEq/L mEq/L (3.5-5.2) POC Chloride 99 mEq/L mEq/L (97-110) Chloride 102 mEq/L mEq/L (97-110) Carbon Dioxide 23 mEq/l mEq/l (22-31) Anion Gap 15 mEq/L mEq/L (8-16) POC BUN 17 mg/dL mg/dL (7-23) BUN 17 mg/dL mg/dL (7-23) Creatinine 0.7 mg/dL mg/dL (0.7-1.3) POC Creatinine 0.6 mg/dL L mg/dL (0.7-1.3) Estimated GFR > 60 Glucose 226 mg/dL H mg/dL (70-100) POC Glucose 232 mg/dL H mg/dL (70-100) Calcium 9.9 mg/dL mg/dL (8.5-10.4) Phosphorus 2.8 mg/dL D mg/dL (2.5-4.5) Magnesium 1.5 mg/dL L mg/dL (1.6-2.3) Total Bilirubin Conjugated Bilirubin Unconjugated Bilirubin AST ALT Alkaline Phosphatase Total Protein Albumin Lipase Beta-Hydroxybutyrate 1.00 mmol/L H mmol/L (0.02-0.27) 03/20/17 19:15 WBC RBC Hgb POC Hgb Hct POC Hct MCV MCH MCHC RDW Plt Count MPV Neut % (Auto) Lymph % (Auto) [place] % (Auto) Eos % (Auto) Baso % (Auto) Nucleat RBC Rel Count Absolute Neuts (auto) Absolute Lymphs (auto) Absolute Monos (auto) Absolute Eos (auto) Absolute Basos (auto) Absolute Nucleated RBC Immature Gran % Immature Gran # POC Sodium Sodium POC Potassium Potassium POC Chloride Chloride Carbon Dioxide Anion Gap POC BUN BUN Creatinine POC Creatinine Estimated GFR Glucose POC Glucose Calcium Phosphorus Magnesium Total Bilirubin 1.1 mg/dL mg/dL (0.1-1.4) Conjugated Bilirubin 0.2 mg/dL mg/dL (0.0-0.5) Unconjugated Bilirubin 0.9 mg/dL mg/dL (0.0-1.1) AST 21 IU/L IU/L (17-59) ALT 27 IU/L IU/L (21-72) Alkaline Phosphatase 74 IU/L IU/L (38-126) Total Protein 7.0 g/dL g/dL (6.3-8.2) Albumin 4.5 g/dL g/dL (3.5-5.0) Lipase 50.0 IU/L IU/L (23-300) Beta-Hydroxybutyrate Medications Given: Discontinued Medications Sodium Chloride (Ns) 1,000 mls @ 0 mls/hr IV EDNOW ONE; Wide Open PRN Reason: Protocol Stop: 03/20/17 19:35 Last Admin: 03/20/17 19:48 Dose: 1,000 mls Sodium Chloride (Ns) 1,000 mls @ 0 mls/hr IV EDNOW ONE; Wide Open PRN Reason: Protocol Stop: 03/20/17 19:35 Last Admin: 03/20/17 19:48 Dose: 1,000 mls Ondansetron HCl (Zofran) 4 mg IVP EDNOW ONE Stop: 03/20/17 19:35 Last Admin: 03/20/17 19:48 Dose: 4 mg Point of Care Test Results: 03/20/17 19:17 POC Sodium 141 POC Potassium 3.3 POC Chloride 99 POC BUN 17 POC Creatinine 0.6 L POC Glucose 232 H Departure - Departure Disposition: Home, Routine, Self-Care Clinical Impression: Gastroenteritis Vomiting Qualifiers: Vomiting type: unspecified Vomiting Intractability: non-intractable Nausea presence: with nausea Qualified Code(s): R11.2 - Nausea with vomiting, unspecified Condition: Good Instructions: Acute Nausea and Vomiting (ED), Gastroenteritis (ED) Additional Instructions: 1. Watch your blood sugar closely and administer insulin based on your blood sugar whether you are eating or not. 2. Use Zofran as prescribed when needed for nausea and vomiting. 3. Follow up with your primary care provider for unimproved symptoms over the next 2-3 days. 4. Return to the ED for any worsening of condition. Referrals: TATO [facility]ARRIS [Other] - As per Instructions Prescriptions: Ondansetron Odt [Zofran Odt 4 mg (RX)] 4 mg PO Q4 PRN #10 tab PRN Reason: Nausea/Vomiting, Use 1st Report Scribed for: Arnold Chavez Report Scribed by: Lelia Darby Date of Report: 03/20/17 Time of Report: 19:32
[2017-03-20 19:32] LABS: % IMMATURE GRANULYOCYTES 0.7 % (0.0-1.1); ABSOLUTE IMMATURE GRANULOCYTES 0.09 10^3/uL (0.00-0.10); ADD DIFF? NO; ADD MORPH? NO; ADD SCAN? NO; ATYPICAL LYMPHOCYTE FLAG 0 (0-99); FRAGMENT RBC FLAG 0 (0-99); HEMATOCRIT 39.6 % (40.0-51.0); HEMOGLOBIN 14.2 g/dL (13.7-17.5); LEFT SHIFT FLG 10 (0-99); LIPEMIA HEMOLYSIS FLAG 90 (0-99); MEAN CELL HEMOGLOBIN 30.7 pg (27.9-34.1); MEAN CELL HEMOGLOBIN CONCENTR. 35.9 g/dL (32.4-36.7); MEAN CELL VOLUME 85.7 fL (81.5-99.8); MEAN PLATELET VOLUME 9.8 fL (8.7-11.7); PLATELET CLUMPS FLAG 0 (0-99); PLATELET COUNT 266 10^3/uL (150-400); RED BLOOD CELL COUNT 4.62 10^6/uL (4.40-6.38); RED CELL DISTRIBUTION WIDTH 11.9 % (11.5-15.2)
[2017-03-20] MEDS ORDERED: ONDANSETRON 4 MG/2 ML VIAL IVP ONE (19:34)
[2017-03-20] MEDS ORDERED: NS 1,000 ML IV ONE ×2 (19:34)
[2017-03-20 19:52] LABS: ALBUMIN 4.5 g/dL (3.5-5.0); BILIRUBIN,TOTAL 1.1 mg/dL (0.1-1.4); BILIRUBIN-CONJUGATED 0.2 mg/dL (0.0-0.5); BILIRUBIN-UNCONJUGATED 0.9 mg/dL (0.0-1.1)
[2017-03-20 20:00] LABS: ANION GAP 15 mEq/L (8-16); CALCIUM 9.9 mg/dL (8.5-10.4); CARBON DIOXIDE 23 mEq/l (22-31); CHLORIDE 102 mEq/L (97-110); CREATININE 0.7 mg/dL (0.7-1.3); GLOMERULAR FILTRATION RATE > 60; GLUCOSE 226 mg/dL (70-100); MAGNESIUM 1.5 mg/dL (1.6-2.3); POTASSIUM 3.6 mEq/L (3.5-5.2); SODIUM 140 mEq/L (134-144)
[2017-03-20] MEDS ORDERED: ONDANSETRON 4MG PREPACK#2 BTL TAKEHOME ONE (20:05)
[2017-03-20 21:12] VITALS: BP 139/82; PULSE 73; TEMP 97.9; O2SAT 95
== END 2017-03-20 21:12 | disposition home or self-care (01) ==
DX: K52.9 Noninfective gastroenteritis and colitis, unspecified (principal); E86.9 Volume depletion, unspecified; E10.9 Type 1 diabetes mellitus without complications; Z87.891 Personal history of nicotine dependence
CPT/HCPCS: 82947-QW; 96374; J2405

== ENCOUNTER 2017-03-23 11:41 | Inpatient (IN) | payer OTHER ==
[2017-03-23] MEDS ORDERED: NS 1,000 ML IV ONE ×2 (12:10→13:37)
--- NOTE | 2017-03-23 12:12 | EDPHY ---
H & P Time Seen by Provider: 03/23/17 11:51 HPI/ROS: CHIEF COMPLAINT: Nausea and vomiting HISTORY OF PRESENT ILLNESS: Nausea and vomiting for 6 days, was admitted March 18- and then seen here again on the . Patient received Zofran last time he was in the emergency department. His glucose is running around 200-250 at home. Patient states he thinks he might have cannabis hyperemesis syndrome, as he is a cannabis user and is only able to feel better after taking a hot shower, up to 15 times per day. He has diffuse abdominal cramping but no hematemesis or coffee-ground emesis and no diarrhea. No injury or trauma. REVIEW OF SYSTEMS: Eye: no change in vision ENT: no sore throat Cardiac: no chest pain or syncope Pulmonary: no cough or SOB Abdomen: HPI Musculoskeletal: no back pain Skin: no rash Neuro: no headache Constitutional: no fever : no urinary symptoms A comprehensive 10 point review of systems is otherwise negative aside from elements mentioned in the history of present illness. PAST MEDICAL HISTORY: Diabetes and cyclic vomiting Social history: Cannabis user, no alcohol Primary care: Harry Bulkacz General Appearance: Alert and conversant, cooperative. Eyes: No scleral icterus. ENT, Mouth: Dry mucous membranes. Respiratory: Normal respiratory effort, breath sounds equal, lungs are clear to auscultation. Cardiovascular: Regular rate and rhythm. Gastrointestinal: Abdomen is soft and non tender. Neurological: Alert and oriented x3. Normally conversant. Face symmetric, normal movement and sensation in all extremities. Skin: Warm and dry, no rashes. Musculoskeletal: No peripheral edema and no joint swelling. Psychiatric: Not agitated. Emergency Department course/MDM: Initial 1 L IV normal saline with 4 mg IV Zofran. 1320: Still having nausea. Haldol 2.5 mg IV and Benadryl 50 mg IV, ketamine 50 mg intranasal. Labs reviewed, not in ketoacidosis. 1435: Still symptomatic, high risk because of diabetes and insulin use, admit for symptom control. Smoking Status: Former smoker Constitutional: Initial Vital Signs Temperature (C) 36.7 C 03/23/17 11:51 Heart Rate 71 03/23/17 11:51 Respiratory Rate 16 03/23/17 11:51 Blood Pressure 140/95 H 03/23/17 11:51 O2 Sat (%) 99 03/23/17 11:51 O2 Delivery Mode Room Air Allergies/Adverse Reactions: No Known Allergies Allergy (Verified 03/18/17 10:15) Home Medications: Medication Instructions Recorded Insulin Detemir [Levemir] 35 units SC DAILY 12/18/16 Gabapentin [Neurontin 300 MG (*)] 600 mg PO TID 03/18/17 Insulin Aspart [novoLOG] 0 unit SC TIDMEAL 03/18/17 Insulin Detemir [Levemir] 25 unit SQ HS 03/18/17 Pantoprazole Sodium [Protonix 40mg 40 mg PO DAILY #30 tab 03/19/17 (*)] Ondansetron Odt [Zofran Odt 4 mg 4 mg PO Q4 PRN #10 tab 03/20/17 (RX)] Medical Decision Making Differential Diagnosis: Differential considered including but not limited to gastroenteritis, cannabis hyperemesis, diabetic ketoacidosis, bowel obstruction, appendicitis, pancreatitis. Consult/Admit Bed Type: [place] [id number] - Data Points Laboratory Results: Laboratory Results 03/23/17 12:17 03/23/17 12:17 03/23/17 03/23/17 03/23/17 12:30 12:17 12:17 WBC RBC Hgb POC Hgb Hct POC Hct MCV MCH MCHC RDW Plt Count MPV Neut % (Auto) Lymph % (Auto) [place] % (Auto) Eos % (Auto) Baso % (Auto) Nucleat RBC Rel Count Absolute Neuts (auto) Absolute Lymphs (auto) Absolute Monos (auto) Absolute Eos (auto) Absolute Basos (auto) Absolute Nucleated RBC Immature Gran % Immature Gran # VBG pH 7.43 H (7.31-7.42) POC Sodium Sodium 142 mEq/L mEq/L (134-144) POC Potassium Potassium 4.2 mEq/L mEq/L (3.5-5.2) POC Chloride Chloride 106 mEq/L mEq/L (97-110) Carbon Dioxide 22 mEq/l mEq/l (22-31) Anion Gap 14 mEq/L mEq/L (8-16) POC BUN BUN 12 mg/dL mg/dL (7-23) Creatinine 0.7 mg/dL mg/dL (0.7-1.3) POC Creatinine Estimated GFR > 60 Glucose 211 mg/dL H mg/dL (70-100) POC Glucose Calcium 9.5 mg/dL mg/dL (8.5-10.4) Total Bilirubin 1.3 mg/dL mg/dL (0.1-1.4) Conjugated Bilirubin 0.5 mg/dL mg/dL (0.0-0.5) Unconjugated Bilirubin 0.8 mg/dL mg/dL (0.0-1.1) AST 32 IU/L IU/L (17-59) ALT 22 IU/L IU/L (21-72) Alkaline Phosphatase 63 IU/L IU/L (38-126) Total Protein 6.6 g/dL g/dL (6.3-8.2) Albumin 4.3 g/dL g/dL (3.5-5.0) Lipase 69.0 IU/L IU/L (23-300) Specimen Hemolysis 101 03/23/17 03/23/17 03/23/17 12:17 12:17 12:14 WBC 5.71 10^3/uL D 10^3/uL (3.80-9.50) RBC 4.30 10^6/uL L 10^6/uL (4.40-6.38) Hgb 13.3 g/dL L g/dL (13.7-17.5) POC Hgb 13.6 gm/dL L gm/dL (13.7-17.5) Hct 37.1 % L % (40.0-51.0) POC Hct 40 % % (40-51) MCV 86.3 fL fL (81.5-99.8) MCH 30.9 pg pg (27.9-34.1) MCHC 35.8 g/dL g/dL (32.4-36.7) RDW 11.9 % % (11.5-15.2) Plt Count 237 10^3/uL 10^3/uL (150-400) MPV 9.6 fL fL (8.7-11.7) Neut % (Auto) 69.0 % % (39.3-74.2) Lymph % (Auto) 20.8 % % (15.0-45.0) [place] % (Auto) 7.9 % % (4.5-13.0) Eos % (Auto) 0.9 % % (0.6-7.6) Baso % (Auto) 0.9 % % (0.3-1.7) Nucleat RBC Rel Count 0.0 % % (0.0-0.2) Absolute Neuts (auto) 3.94 10^3/uL 10^3/uL (1.70-6.50) Absolute Lymphs (auto) 1.19 10^3/uL 10^3/uL (1.00-3.00) Absolute Monos (auto) 0.45 10^3/uL 10^3/uL (0.30-0.80) Absolute Eos (auto) 0.05 10^3/uL 10^3/uL (0.03-0.40) Absolute Basos (auto) 0.05 10^3/uL 10^3/uL (0.02-0.10) Absolute Nucleated RBC 0.00 10^3/uL 10^3/uL (0-0.01) Immature Gran % 0.5 % % (0.0-1.1) Immature Gran # 0.03 10^3/uL 10^3/uL (0.00-0.10) VBG pH REJ POC Sodium 142 mEq/L mEq/L (134-144) Sodium POC Potassium 3.4 mEq/L mEq/L (3.3-5.0) Potassium POC Chloride 101 mEq/L mEq/L (97-110) Chloride Carbon Dioxide Anion Gap POC BUN 10 mg/dL mg/dL (7-23) BUN Creatinine POC Creatinine 0.7 mg/dL mg/dL (0.7-1.3) Estimated GFR Glucose POC Glucose 228 mg/dL H mg/dL (70-100) Calcium Total Bilirubin Conjugated Bilirubin Unconjugated Bilirubin AST ALT Alkaline Phosphatase Total Protein Albumin Lipase Specimen Hemolysis Medications Given: Discontinued Medications Diphenhydramine HCl (Benadryl Injection) 25 mg IVP EDNOW ONE Stop: 03/23/17 13:20 Last Admin: 03/23/17 13:34 Dose: 25 mg Haloperidol Lactate (Haldol Injection) 2.5 mg IVP EDNOW ONE Stop: 03/23/17 13:20 Last Admin: 03/23/17 13:37 Dose: 2.5 mg Sodium Chloride (Ns) 1,000 mls @ 0 mls/hr IV EDNOW ONE; Wide Open PRN Reason: Protocol Stop: 03/23/17 12:11 Last Admin: 03/23/17 12:24 Dose: 1,000 mls Sodium Chloride (Ns) 1,000 mls @ 0 mls/hr IV EDNOW ONE; Wide Open PRN Reason: Protocol Stop: 03/23/17 13:38 Last Admin: 03/23/17 13:45 Dose: 1,000 mls Ketamine HCl (Ketamine) 50 mg NASAL EDNOW ONE Stop: 03/23/17 13:20 Last Admin: 03/23/17 13:42 Dose: 50 mg Ondansetron HCl (Zofran) 4 mg IVP EDNOW ONE Stop: 03/23/17 12:27 Last Admin: 03/23/17 12:27 Dose: 4 mg Point of Care Test Results: 03/23/17 12:14 POC Sodium 142 POC Potassium 3.4 POC Chloride 101 POC BUN 10 POC Creatinine 0.7 POC Glucose 228 H Departure - Departure Disposition: [facility] Inpatient Acute Clinical Impression: Nausea & vomiting Qualifiers: Vomiting type: unspecified Vomiting Intractability: non-intractable Qualified Code(s): R11.2 - Nausea with vomiting, unspecified Condition: Good Referrals: NONE *PRIMARY CARE P,. [Unknown] - As per Instructions
[2017-03-23] MEDS ORDERED: ONDANSETRON 4 MG/2 ML VIAL IVP ONE (12:26)
[2017-03-23 12:27] LABS: % IMMATURE GRANULYOCYTES 0.5 % (0.0-1.1); ABSOLUTE IMMATURE GRANULOCYTES 0.03 10^3/uL (0.00-0.10); ADD DIFF? NO; ADD MORPH? NO; ADD SCAN? NO; ATYPICAL LYMPHOCYTE FLAG 10 (0-99); FRAGMENT RBC FLAG 0 (0-99); HEMATOCRIT 37.1 % (40.0-51.0); HEMOGLOBIN 13.3 g/dL (13.7-17.5); LEFT SHIFT FLG 0 (0-99); LIPEMIA HEMOLYSIS FLAG 90 (0-99); MEAN CELL HEMOGLOBIN 30.9 pg (27.9-34.1); MEAN CELL HEMOGLOBIN CONCENTR. 35.8 g/dL (32.4-36.7); MEAN CELL VOLUME 86.3 fL (81.5-99.8); MEAN PLATELET VOLUME 9.6 fL (8.7-11.7); PLATELET CLUMPS FLAG 0 (0-99); PLATELET COUNT 237 10^3/uL (150-400); RED CELL DISTRIBUTION WIDTH 11.9 % (11.5-15.2)
[2017-03-23 12:47] LABS: ANION GAP 14 mEq/L (8-16); CALCIUM 9.5 mg/dL (8.5-10.4); CARBON DIOXIDE 22 mEq/l (22-31); CHLORIDE 106 mEq/L (97-110); CREATININE 0.7 mg/dL (0.7-1.3); GLOMERULAR FILTRATION RATE > 60; GLUCOSE 211 mg/dL (70-100); POTASSIUM 4.2 mEq/L (3.5-5.2); SODIUM 142 mEq/L (134-144); SPECIMEN HEMOLYSIS 101
[2017-03-23] MEDS ORDERED: KETAMINE 500 MG/10 ML VIAL NASAL ONE (13:19)
[2017-03-23] MEDS ORDERED: HALOPERIDOL LACT 5 MG/ML INJ IVP ONE (13:19)
[2017-03-23 13:43] LABS: ALBUMIN 4.3 g/dL (3.5-5.0); BILIRUBIN,TOTAL 1.3 mg/dL (0.1-1.4); BILIRUBIN-CONJUGATED 0.5 mg/dL (0.0-0.5); BILIRUBIN-UNCONJUGATED 0.8 mg/dL (0.0-1.1); TOTAL PROTEIN 6.6 g/dL (6.3-8.2)
[2017-03-23] MEDS ORDERED: ONDANSETRON 4 MG/2 ML VIAL IVP PRN (15:25)
[2017-03-23] MEDS ORDERED: PROMETHAZINE HCL 25 MG/ML INJ IVP PRN (15:25)
[2017-03-23] MEDS ORDERED: ONDANSETRON DISINTEGRATING 4 MG TAB PO PRN (15:25)
[2017-03-23] MEDS ORDERED: ACETAMINOPHEN 325 MG TAB PO PRN (15:25)
[2017-03-23] MEDS ORDERED: D50W 25 GM/50 ML SYR IVP PRN (15:36)
[2017-03-23] MEDS: NS 1,000 ML IV SCH (16:10)
--- NOTE | 2017-03-23 16:14 | GHP ---
[f rep st] HISTORY AND PHYSICAL DATE OF ADMISSION: 03/23/2017 HISTORY OF PRESENT ILLNESS: This patient is a pleasant 31-year-old gentleman with history of type 1 diabetes, and a couple of visits to the ER including an overnight admission over the last couple of weeks for nausea and vomiting. He suspects he may have cannabis hyperemesis syndrome as he uses ma rijuana multiple times per day. He has not had hematemesis or coffee-ground emesis. He has not had melena or bright red blood per rectum. He has been taking his long-acting insulin. He normally ta kes 35 units in the morning and 20 at night. He has been taking about 25 in the morning and 15 at n ight of Levemir. He says his last hemoglobin A1c was 7.2, although prior to that he had poor contro l. 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 He does endorse multiple hot showers per day and feeling better after using marijuana multiple times today. He expresses a desire to not use marijuana and to not vomit every day. REVIEW OF SYSTEMS: Complete 10-point review of systems conducted, negative except as noted in the H PI. PAST MEDICAL HISTORY: 1. Type 1 diabetes. 2. Polysubstance use. 3. Peripheral neuropathy secondary to diabetes. FAMILY HISTORY: Reviewed and unremarkable. 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 Originally from [facility]. Does not smoke cigarettes. ALLERGIES: No known drug allergies. HOME MEDICATIONS: Gabapentin, NovoLog, Levemir, ondansetron, Protonix. PHYSICAL EXAMINATION: VITAL SIGNS: Temp 36.7, blood pressure 140/95, pulse 71, breathing 16 times a minute, 99% on room air. GENERAL: No acute distress. HEENT: Sclerae anicteric. Oropharynx lito ar. Mucous membranes moist. NECK: Supple. No lymphadenopathy or JVD. LUNGS: Clear to auscultat ion bilaterally. HEART: S1, S2. ABDOMEN: Soft, nontender, nondistended. Bowel sounds present. LOWER EXTREMITIES: No edema. Calves nontender. SKIN: Without rash. NEUROLOGICAL: Nonfocal. Sodium 142, potassium 4.2, chloride 106, bicarb 22, BUN 12, creatinine 0.7, glucose 211, lipase and LFTs are normal. Venous blood gas sent today with pH 7.43. White count 5.7, hematocrit 37, platele ts are 237,000. Discussed the case with Dr. Jamaal Hopkins. I have reviewed and summarized previous [facility] records in the HPI and attached medical history. ASSESSMENT/PLAN: This is a 31-year-old gentleman with a history of diabetes who presents with vomit ing suspicious for cannabis hyperemesis syndrome. 1. Nausea and vomiting. Certainly I do believe this is cannabis hyperemesis syndrome based on his frequent hot showers and multiple times per day use. I advised the patient that cessation of mariju delicia use is best means to get control of his nausea and vomiting. For now will continue with IV flui ds and IV antiemetics in the form of Reglan, Phenergan, Zofran. 2. Diabetes. Will continue his insulin at lower doses given his reduced p.o. intake. 3. History of alcohol use. I think the patient has not been drinking very much lately. Certainly his presenting signs are not consistent with withdrawal. 4. Neuropathy. Continue his Neurontin. DISPOSITION: Observation status. /[id number]/MODL
[2017-03-23] MEDS: GABAPENTIN 300 MG CAP PO SCH ×2 (16:15→22:50)
[2017-03-23] MEDS: INSULIN LISPRO 100 UNIT/ML SC SCH (18:30)
[2017-03-23] MEDS: METOCLOPRAMIDE 10 MG/2 ML VIAL IVP PRN (20:03)
[2017-03-23] MEDS: HYDROmorphONE/DILAUDID 1 MG/ML SYR IVP PRN (20:48)
[2017-03-23] MEDS: INSULIN GLARGINE 100 UNITS/ML SYRINGE SC SCH (22:50)
[2017-03-24 05:01] LABS: % IMMATURE GRANULYOCYTES 0.5 % (0.0-1.1); ABSOLUTE IMMATURE GRANULOCYTES 0.03 10^3/uL (0.00-0.10); ADD DIFF? NO; ADD MORPH? NO; ADD SCAN? NO; ATYPICAL LYMPHOCYTE FLAG 0 (0-99); FRAGMENT RBC FLAG 0 (0-99); HEMATOCRIT 34.5 % (40.0-51.0); LEFT SHIFT FLG 10 (0-99); LIPEMIA HEMOLYSIS FLAG 90 (0-99); MEAN CELL HEMOGLOBIN 30.5 pg (27.9-34.1); MEAN CELL HEMOGLOBIN CONCENTR. 34.8 g/dL (32.4-36.7); MEAN CELL VOLUME 87.8 fL (81.5-99.8); MEAN PLATELET VOLUME 9.8 fL (8.7-11.7); PLATELET CLUMPS FLAG 0 (0-99); PLATELET COUNT 195 10^3/uL (150-400); RED BLOOD CELL COUNT 3.93 10^6/uL (4.40-6.38); RED CELL DISTRIBUTION WIDTH 11.9 % (11.5-15.2)
[2017-03-24 05:18] LABS: ANION GAP 10 mEq/L (8-16); CALCIUM 8.6 mg/dL (8.5-10.4); CARBON DIOXIDE 20 mEq/l (22-31); CHLORIDE 108 mEq/L (97-110); CREATININE 0.7 mg/dL (0.7-1.3); GLOMERULAR FILTRATION RATE > 60; GLUCOSE 165 mg/dL (70-100); POTASSIUM 3.7 mEq/L (3.5-5.2); SODIUM 138 mEq/L (134-144)
[2017-03-24] MEDS: METOCLOPRAMIDE 10 MG/2 ML VIAL IVP PRN ×2 (06:47→21:36)
[2017-03-24] MEDS: HYDROmorphONE/DILAUDID 1 MG/ML SYR IVP PRN (08:39)
[2017-03-24] MEDS: NS 1,000 ML IV SCH ×4 (08:54→21:20)
[2017-03-24] MEDS: INSULIN GLARGINE 100 UNITS/ML SYRINGE SC SCH (09:00)
[2017-03-24] MEDS: GABAPENTIN 300 MG CAP PO SCH ×3 (09:00→21:20)
[2017-03-24] MEDS: INSULIN LISPRO 100 UNIT/ML SC SCH ×3 (09:00→15:50)
[2017-03-24] MEDS ORDERED: NS 1,000 ML IV ONE (10:11)
[2017-03-24] MEDS: PROMETHAZINE HCL 25 MG/ML INJ IVP SCH ×2 (11:53→19:33)
[2017-03-24] MEDS: PANTOPRAZOLE SODIUM 40 MG TAB PO SCH (11:55)
[2017-03-24] MEDS: ONDANSETRON 4 MG/2 ML VIAL IVP SCH ×3 (14:34→21:36)
--- NOTE | 2017-03-24 17:46 | HOSPPROG ---
Hospitalist Progress Note Assessment/Plan: DIAGNOSES: -Acute exacerbation of cyclic vomiting syndrome, intractable vomiting -Dehydration -Marijuana abuse - diabetes mellitus with moderate hyperglycemia PLANS: I will increase IV hydration at this time Will place his antiemetics on a scheduled basis Continue treatment of his diabetes Is recommended that he discontinue use of marijuana he will need ongoing IV hydration and antiemetics here for the next day so will change him to inpatient SUBJECTIVE: my evaluation smooth patient still having fair bit of nausea, no abdominal pain. He feels weak and tired has not been out of bed yet OBJECTIVE Vitals reviewed: stable without fever Exam: alert oriented skin warm dry color ok resps not labored lungs clear BSs heart regular abd soft nondistended, Mildly diffusely tender, bowel sounds present limbs warm, no edema iv site ok Objective: Vital Signs Temp Pulse Resp BP Pulse Ox 36.8 C 68 16 141/81 H 97 03/24/17 17:37 03/24/17 17:37 03/24/17 17:37 03/24/17 17:37 03/24/17 17:37 Laboratory Results 03/24/17 04:16 03/24/17 04:16 03/23/17 03/24/17 03/25/17 06:59 06:59 06:59 Intake Total 3145 2540 Output Total 350 780 Balance [id number] ICD10 Worksheet Patient Problems: Problems Problem Status Onset Nausea & vomiting Acute Abdominal pain Acute DKA (diabetic ketoacidoses) Acute DKA (diabetic ketoacidoses) Acute Dehydration Acute Diabetes Acute Intractable vomiting Acute Vomiting Acute
[2017-03-25] MEDS: PROMETHAZINE HCL 25 MG/ML INJ IVP SCH ×2 (00:40→06:29)
[2017-03-25] MEDS: INSULIN GLARGINE 100 UNITS/ML SYRINGE SC SCH ×3 (00:58→22:17)
[2017-03-25] MEDS: NS 1,000 ML IV SCH ×2 (02:13→08:25)
[2017-03-25] MEDS: HYDROmorphONE/DILAUDID 1 MG/ML SYR IVP PRN ×2 (02:13→06:41)
[2017-03-25] MEDS: ONDANSETRON 4 MG/2 ML VIAL IVP SCH ×2 (02:13→06:29)
[2017-03-25] MEDS: GABAPENTIN 300 MG CAP PO SCH ×3 (08:22→22:16)
[2017-03-25] MEDS: PANTOPRAZOLE SODIUM 40 MG TAB PO SCH (08:22)
[2017-03-25] MEDS: INSULIN LISPRO 100 UNIT/ML SC SCH ×3 (08:22→17:28)
--- NOTE | 2017-03-25 08:39 | HOSPPROG ---
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 He seemed very open to this plan. Continue bland diet, advance as tolerated. Hopeful DC home tomorrow if able to eat/hydrate and OK with PO meds. STRONGLY advised to NOT use MJ for n/v, and preferably not at all with other medical issues/meds. He will consider and review with his PCP at [facility] too. -Dehydration -resolved, PO challenges today -Marijuana abuse -see above -Diabetes mellitus with moderate hyperglycemia, type 1 -usually his own insulin as prev directed, says A1C is in 7's, discussed can still have some autonomic neuropathy/gastropathy which can be causing some of his admission sxs. -anemia -watch closely as an outpatient, check hemocult DISPO- hopeful DC in AM if tolerating PO PCP- Dr Gilliland at [facility] DVT prophy- ambulation Subjective: Feeling somewhat better/less nausea. Was able to eat a bit today. Having cramping now, says combo dilaudid and phenergan working. Says has not tried reglan, bentyl, or levsin prev. Objective: Vital Signs Temp Pulse Resp BP Pulse Ox 98 F 68 16 148/86 H 98 03/25/17 08:00 03/25/17 08:00 03/25/17 08:00 03/25/17 08:00 03/25/17 08:00 03/23/17 03/24/17 03/25/17 11:59 11:59 11:59 Intake Total 850 Balance 850 - Time Spent With Patient Time Spent with Patient: greater than 25 minutes Time Spent with Patient: Greater than 25 minutes spent on this patients care, greater than 50% of time spent counseling, educating, and coordinating care regarding the above mentioned plan. - Pending Discharge Pending Discharge Within 24 Hours: Yes Pending Discharge Date: 03/26/17 Pending Discharge Time: 11:00 - Physical Exam Constitutional: no apparent distress, other (mildly uncomfortable) Eyes: PERRL, anicteric sclera, EOMI Ears, Nose, Mouth, Throat: moist mucous membranes Cardiovascular: regular rate and rhythym, no murmur, rub, or gallop Respiratory: no respiratory distress, no rales or rhonchi, clear to auscultation Gastrointestinal: normoactive bowel sounds, no palpable masses, tenderness (mild , throughout), other (soft), No guarding, No rebound Skin: warm Psychiatric: interacting appropriately, not anxious, not encephalopathic, thought process linear ICD10 Worksheet Patient Problems: Problems Problem Status Onset Nausea & vomiting Chronic Abdominal pain Acute Intractable vomiting Acute Diabetes Chronic
[2017-03-25] MEDS ORDERED: DICYCLOMINE 20 MG TAB PO PRN (11:40)
[2017-03-25] MEDS: METOCLOPRAMIDE 5 MG TAB PO SCH ×3 (11:54→22:15)
[2017-03-25] MEDS: HYOSCYAMINE SULFATE 0.125 MG TAB PO PRN ×2 (11:54→19:52)
[2017-03-25] MEDS: ONDANSETRON DISINTEGRATING 4 MG TAB PO PRN (16:37)
[2017-03-25] MEDS ORDERED: POLYETHYLENE GLYCOL 3350 17 GM PKT PO PRN (16:44)
[2017-03-25] MEDS ORDERED: BISACODYL 10 MG SUPP PR PRN (16:44)
[2017-03-25] MEDS ORDERED: SENNOSIDES/DOCUSATE SODIUM TAB PO PRN (16:44)
[2017-03-25] MEDS ORDERED: LACTULOSE 20 GM/30 ML UDCUP PO PRN (16:44)
[2017-03-25] MEDS ORDERED: MAGNESIUM HYDROXIDE 30 ML UDCUP PO PRN (16:44)
[2017-03-25 19:31] VITALS: RESP 16
[2017-03-26] MEDS: HYOSCYAMINE SULFATE 0.125 MG TAB PO PRN ×2 (02:04→08:22)
[2017-03-26] MEDS: HYDROmorphONE/DILAUDID 1 MG/ML SYR IVP PRN ×2 (02:04→04:37)
[2017-03-26] MEDS: METOCLOPRAMIDE 5 MG TAB PO SCH ×2 (04:36→12:11)
[2017-03-26] MEDS: ONDANSETRON 4 MG/2 ML VIAL IVP PRN ×2 (04:37→08:23)
[2017-03-26] MEDS ORDERED: HYDROCODONE/APAP 5/325 TAB PO PRN (05:38)
[2017-03-26 05:57] LABS: HEMATOCRIT 37.9 % (40.0-51.0); HEMOGLOBIN 13.5 g/dL (13.7-17.5); MEAN CELL HEMOGLOBIN 30.5 pg (27.9-34.1); MEAN CELL HEMOGLOBIN CONCENTR. 35.6 g/dL (32.4-36.7); MEAN CELL VOLUME 85.7 fL (81.5-99.8); RED BLOOD CELL COUNT 4.42 10^6/uL (4.40-6.38); RED CELL DISTRIBUTION WIDTH 11.9 % (11.5-15.2)
[2017-03-26 06:12] LABS: ANION GAP 14 mEq/L (8-16); CARBON DIOXIDE 21 mEq/l (22-31); CHLORIDE 103 mEq/L (97-110); CREATININE 0.6 mg/dL (0.7-1.3); GLOMERULAR FILTRATION RATE > 60; GLUCOSE 111 mg/dL (70-100); POTASSIUM 3.6 mEq/L (3.5-5.2); SODIUM 138 mEq/L (134-144)
[2017-03-26 07:53] VITALS: TEMP 98; O2SAT 97
[2017-03-26] MEDS: PANTOPRAZOLE SODIUM 40 MG TAB PO SCH (08:22)
[2017-03-26] MEDS: GABAPENTIN 300 MG CAP PO SCH (08:22)
[2017-03-26] MEDS: INSULIN LISPRO 100 UNIT/ML SC SCH ×2 (08:31→12:12)
[2017-03-26] MEDS: INSULIN GLARGINE 100 UNITS/ML SYRINGE SC SCH (09:50)
[2017-03-26 11:51] VITALS: BP 148/96; PULSE 64
[2017-03-26] MEDS: ONDANSETRON DISINTEGRATING 4 MG TAB PO PRN (12:11)
--- NOTE | 2017-03-27 18:01 | GDS ---
[f rep st] DISCHARGE SUMMARY SERVICE: [facility] Hospitalists. CONSULTS: None. PROCEDURES: None. HISTORY AND PHYSICAL: Please see previously dictated note by Dr. Tushar Vogel. ADMISSION DIAGNOSES: 1. Intractable nausea and vomiting/suspicious for cannabis hyperemesis syndrome. 2. Type 1 diabetes. 3. Diabetic neuropathy. 4. History of alcohol use. DISCHARGE DIAGNOSES: 1. Intractable nausea and vomiting/suspicious for cannabis hyperemesis syndrome. Consider diabetic gastropathy. 2. Type 1 diabetes. 3. Diabetic neuropathy. 4. History of alcohol use. 5. Anemia. HOSPITAL COURSE BY PROBLEM: 1. Cyclic vomiting syndrome, question hyperemesis from cannabis use plus or minus diabetic gastropa thy. He was started on IV fluids along with IV antiemetics. Slowly over the course of his admissio n, his nausea and vomiting resolved; however, he continued to have cramping with eating. He was tra nsitioned over to oral medications and had some relief from a combination of Reglan scheduled along with Bentyl and/or Levsin as needed. I had discussed with him a few times prior to discharge the im portance of not smoking marijuana in the future and also ensuring good diabetic control as this is l ikely a combination of cannabis hyperemesis syndrome along with complications related to type 1 diab etes. I have encouraged him to take Reglan scheduled, but to use Bentyl, Levsin and Zofran as neede d (did not continue Phenergan because of scheduled Reglan). A very small prescription for [place] was given, but I have encouraged him to not use this regularly, as that will cause constipation and fur ther complicate his GI status. He was asked to continue with a bland diet, to watch his blood sugar s carefully, and to return immediately if he has any worsening abdominal pain, recurrence of nausea and vomiting/inability to stay hydrated, or other concerns. Otherwise, I have asked him to keep a s ymptom log along with medication log and follow up with his primary care provider, Dr. Harry Johnson, at [facility] as soon as able. 2. Type 1 diabetes. Blood sugars were monitored closely throughout his stay. He managed his diabe rosa per his home routine. 3. Anemia. He was noted to be mildly anemic at discharge with a hemoglobin of 13.5, that was as lo w as 12.0 a few days prior. Should recheck this with his primary care provider as an outpatient. DISCHARGE INSTRUCTIONS: Please see above. Bucks diet and ensure plenty of fluids. Should take ove [id number]-dci-[id number] stool softeners or cathartics if no BM within the next day, as this also could be sangita ng to his cramping sensations. If any time he has worsening pain, inability to stay hydrated or oth er concerns, he should return to the emergency department. Otherwise, I have asked him to schedule an appointment with Dr. Johnson or another provider at [facility] by the end of this week. He should keep a symptom log along with a medication log as directed above. I have instructed him to not use marijuana at all in the future. DISCHARGE MEDICATIONS: Please see medication reconciliation in the chart, but in brief, he should c ontinue all his home medications with the addition of Reglan 5 mg scheduled, Bentyl/Levsin/Zofran as needed, [place] sparingly. /[id number]/MODL
== END 2017-03-26 13:02 | disposition home or self-care (01) | DRG 103 ==
LOC: INTOOBSV 14:45 → F1N 15:40 → OBSVTOIN 03-24 17:43
PROVIDERS: ADMIT Internal Medicine; ATTEND Internal Medicine
DX: G43.A0 Cyclical vomiting, in migraine, not intractable (principal); T40.7X5A Adverse effect of cannabis (derivatives), initial encounter; E10.40 Type 1 diabetes mellitus with diabetic neuropathy, unspecified; D64.9 Anemia, unspecified; E86.0 Dehydration; F12.10 Cannabis abuse, uncomplicated
CPT/HCPCS: 82947-QW; 96374; G0378; J1170; J1200; J1815; J2405; J2550; J2765

== ENCOUNTER 2017-06-06 07:56 | Inpatient (IN) | payer SELFPAY ==
[2017-06-06] MEDS ORDERED: NS 1,000 ML IV ONE ×2 (08:13)
[2017-06-06] MEDS ORDERED: HALOPERIDOL LACT 5 MG/ML INJ IVP ONE (08:14)
[2017-06-06] MEDS ORDERED: METOCLOPRAMIDE 10 MG/2 ML VIAL IVP ONE (08:14)
--- NOTE | 2017-06-06 08:18 | EDPHY ---
H & P Stated Complaint: n/v diabetic prob with glucose levels - Personal History Current Tetanus/Diphtheria Vaccine: Yes Tetanus Vaccine Date: WITHIN 10 YRS - Medical/Surgical History Hx Asthma: No Hx Chronic Respiratory Disease: No Hx Diabetes: Yes Hx Cardiac Disease: No Hx Renal Disease: No Hx Cirrhosis: No Hx Alcoholism: No Hx HIV/AIDS: No Hx Splenectomy or Spleen Trauma: No Other PMH: type 1 DIABETES; N/V - Social History Smoking Status: Former smoker Time Seen by Provider: 06/06/17 08:03 HPI/ROS: CHIEF COMPLAINT: "I can't stop vomiting" HISTORY OF PRESENT ILLNESS: 31-year-old male with medical history significant for insulin-dependent diabetes, is cannabis hyperemesis syndrome, probable diabetic gastropathy, arrives via private vehicle complaining of 3 days of intractable nausea, vomiting. No abdominal pain. No diarrhea. Bowel movements normal. No fever or chills. No trauma. No testicular or genitalia pain or abnormality. No urinary abnormality beyond decreased urine output. Recent home serum glucose levels above 300, sometimes levels above machine detection The patient's prior history of similar with admission to [facility] most recently March 2017 PRIMARY CARE PROVIDER:carlos eduardo mccabe REVIEW OF SYSTEMS: A ten point review of systems was performed and is negative with the exception of the items mentioned in the HPI PAST MEDICAL & SURGICAL HISTORY: Insulin-dependent diabetes, cannabis hyperemesis, diabetic gastropathy SOCIAL HISTORY: frequent marijuana and alcohol use PHYSICAL EXAM (Prior to examination, patient consented to physical exam, hands were washed and my usual and customary physical exam procedures followed) 1) GENERAL: Well-developed, well-nourished, alert and oriented. Appears to be in no acute distress. 2) HEAD: Normocephalic, atraumatic 3) HEENT: Pupils equal, round, reactive to light bilaterally. Sclera anicteric. Nasopharynx, oropharynx, clear, no lesions. Dry mucous membranes 4) NECK: Full range of motion, no meningeal signs. 5) LUNGS: Clear auscultation bilaterally, no wheezes, no rhonchi, no retractions. 6) HEART: Regular rate and rhythm, no murmur, no heave, no gallop. 7) ABDOMEN: flat, No guarding, no rebound, no focal tenderness, negative McBurney's, negative Hernandez's, negative Rovsing's, negative peritoneal sign, unable to elicit any abdominal pain on exam 8) MUSCULOSKELETAL: Moving all extremities, no focal areas of tenderness, no obvious trauma. No peripheral edema or discoloration. 9) BACK: No CVA tenderness, no midline vertebral tenderness, no fluctuance, no step-off, no obvious trauma, no visual or palpable abnormality. 10) SKIN: No rash, no petechiae. 11) Psychiatric: Patient is oriented X 3, there is no agitation. DIFFERENTIAL DIAGNOSIS: no particular include but limited to cyclic vomiting syndrome, cannabis hyperemesis syndrome, gastroenteritis, DKA, acute appendicitis (Joann Simpson Jerri) Constitutional: Initial Vital Signs Heart Rate 81 06/06/17 08:00 Respiratory Rate 16 06/06/17 08:00 Blood Pressure 132/95 H 06/06/17 08:00 O2 Sat (%) 97 06/06/17 08:00 O2 Delivery Mode Room Air Allergies/Adverse Reactions: No Known Allergies Allergy (Verified 06/06/17 07:59) Home Medications: Medication Instructions Recorded Gabapentin [Neurontin 300 MG (*)] 900 mg PO TID 03/18/17 Insulin Aspart [novoLOG] 0 unit SC TIDMEAL #0 03/26/17 Insulin Detemir [Levemir] 25 unit SQ HS #0 03/26/17 Insulin Detemir [Levemir] 35 units SC DAILY #0 03/26/17 Cymbalta 06/06/17 Medical Decision Making ED Course/Re-evaluation: 8:16 a.m.: Old medical records reviewed, at this time doubt acute appendicitis or acute surgical abdominal pathology as he has no subjective complaints of abdominal pain and nontender abdomen. 9:20 a.m.: Re-evaluation with serial exams, nausea has abated slightly. Care of patient under supervision of [secondary] supervising physician Dr Chavez . Patient has evidence of DKA, anion gap of 22, elevated serum glucose, dry mucous membranes. He has been given IV hydration, insulin, plan is admission. Abdomen remained soft no guarding no tenderness, no subjective pain 9:24 a.m.: Phone consultation with hospitalist, Bailey Harris, admit to Dr Mai ICU (Joann Simpson) I have discussed this case with Jayson franco, evaluated the patient, reviewed the laboratory studies, and reviewed the treatment plan. This patient has mild diabetic ketoacidosis secondary to a gastrointestinal illness and not using insulin. We are already making improvements in his electrolytes and blood sugars and metabolic acidosis. We will admit him to the hospital. (Arnold Chavez) - Data Points Laboratory Results: Laboratory Results 06/06/17 08:18 06/06/17 08:18 06/06/17 06/06/17 06/06/17 08:18 08:18 08:10 WBC 12.70 10^3/uL H 10^3/uL (3.80-9.50) RBC 5.20 10^6/uL 10^6/uL (4.40-6.38) Hgb 15.7 g/dL g/dL (13.7-17.5) POC Hgb 17.0 gm/dL gm/dL (13.7-17.5) Hct 44.7 % % (40.0-51.0) POC Hct 50 % % (40-51) MCV 86.0 fL fL (81.5-99.8) MCH 30.2 pg pg (27.9-34.1) MCHC 35.1 g/dL g/dL (32.4-36.7) RDW 11.9 % % (11.5-15.2) Plt Count 318 10^3/uL 10^3/uL (150-400) MPV 9.8 fL fL (8.7-11.7) Neut % (Auto) 81.0 % H % (39.3-74.2) Lymph % (Auto) 10.4 % L % (15.0-45.0) Greer % (Auto) 7.5 % % (4.5-13.0) Eos % (Auto) 0.1 % L % (0.6-7.6) Baso % (Auto) 0.2 % L % (0.3-1.7) Nucleat RBC Rel Count 0.0 % % (0.0-0.2) Absolute Neuts (auto) 10.29 10^3/uL H 10^3/uL (1.70-6.50) Absolute Lymphs (auto) 1.32 10^3/uL 10^3/uL (1.00-3.00) Absolute Monos (auto) 0.95 10^3/uL H 10^3/uL (0.30-0.80) Absolute Eos (auto) 0.01 10^3/uL L 10^3/uL (0.03-0.40) Absolute Basos (auto) 0.03 10^3/uL 10^3/uL (0.02-0.10) Absolute Nucleated RBC 0.00 10^3/uL 10^3/uL (0-0.01) Immature Gran % 0.8 % % (0.0-1.1) Immature Gran # 0.10 10^3/uL 10^3/uL (0.00-0.10) POC Sodium 129 mEq/L L mEq/L (134-144) Sodium 129 mEq/L L mEq/L (134-144) POC Potassium 4.0 mEq/L mEq/L (3.3-5.0) Potassium 4.1 mEq/L mEq/L (3.5-5.2) POC Chloride 84 mEq/L L mEq/L (97-110) Chloride 83 mEq/L L mEq/L (97-110) Carbon Dioxide 24 mEq/l mEq/l (22-31) Anion Gap 22 mEq/L H mEq/L (8-16) POC BUN 25 mg/dL H mg/dL (7-23) BUN 22 mg/dL mg/dL (7-23) Creatinine 0.8 mg/dL mg/dL (0.7-1.3) POC Creatinine 0.8 mg/dL mg/dL (0.7-1.3) Estimated GFR > 60 Glucose 447 mg/dL H mg/dL (70-100) POC Glucose 410 mg/dL H mg/dL (70-100) Calcium 10.0 mg/dL mg/dL (8.5-10.4) Total Bilirubin 1.8 mg/dL H mg/dL (0.1-1.4) Conjugated Bilirubin 0.4 mg/dL mg/dL (0.0-0.5) Unconjugated Bilirubin 1.4 mg/dL H mg/dL (0.0-1.1) AST 22 IU/L IU/L (17-59) ALT 35 IU/L IU/L (21-72) Alkaline Phosphatase 105 IU/L IU/L (38-126) Total Protein 8.3 g/dL H g/dL (6.3-8.2) Albumin 4.9 g/dL g/dL (3.5-5.0) Lipase 51 IU/L IU/L (23-300) Beta-Hydroxybutyrate Pending Medications Given: Discontinued Medications Diphenhydramine HCl (Benadryl Injection) 25 mg IVP EDNOW ONE Stop: 06/06/17 08:15 Last Admin: 06/06/17 08:20 Dose: 25 mg Haloperidol Lactate (Haldol Injection) 2.5 mg IVP EDNOW ONE Stop: 06/06/17 08:15 Last Admin: 06/06/17 08:21 Dose: 2.5 mg Sodium Chloride (Ns) 1,000 mls @ 0 mls/hr IV ONCE ONE; Wide Open PRN Reason: Protocol Stop: 06/06/17 08:14 Last Admin: 06/06/17 08:16 Dose: 1,000 mls Sodium Chloride (Ns) 1,000 mls @ 0 mls/hr IV ONCE ONE; Wide Open PRN Reason: Protocol Stop: 06/06/17 08:14 Last Admin: 06/06/17 08:17 Dose: 1,000 mls Insulin Human Regular (Humulin R) 10 unit IVP EDNOW ONE Stop: 06/06/17 09:11 Last Admin: 06/06/17 09:43 Dose: 10 units Metoclopramide HCl (Reglan Injection) 10 mg IVP EDNOW ONE Stop: 06/06/17 08:15 Last Admin: 06/06/17 08:21 Dose: 10 mg Point of Care Test Results: 06/06/17 08:10 POC Sodium 129 L POC Potassium 4.0 POC Chloride 84 L POC BUN 25 H POC Creatinine 0.8 POC Glucose 410 H Departure - Departure Disposition: [facility] In[facility] Acute Clinical Impression: Nausea & vomiting Qualifiers: Vomiting type: cyclical vomiting Vomiting Intractability: intractable Qualified Code(s): G43.A1 - Cyclical vomiting, intractable Diabetes Qualifiers: Diabetes mellitus type: type 1 Diabetes mellitus complication status: with other specified complication Qualified Code(s): E10.69 - Type 1 diabetes mellitus with other specified complication DKA (diabetic ketoacidosis) Qualifiers: Diabetes mellitus type: type 1 Diabetes mellitus complication detail: without coma Qualified Code(s): E10.10 - Type 1 diabetes mellitus with ketoacidosis without coma Condition: Fair
[2017-06-06 08:38] LABS: % IMMATURE GRANULYOCYTES 0.8 % (0.0-1.1); ADD DIFF? NO; ADD MORPH? NO; ADD SCAN? NO; ATYPICAL LYMPHOCYTE FLAG 10 (0-99); FRAGMENT RBC FLAG 0 (0-99); HEMATOCRIT 44.7 % (40.0-51.0); HEMOGLOBIN 15.7 g/dL (13.7-17.5); LEFT SHIFT FLG 0 (0-99); LIPEMIA HEMOLYSIS FLAG 90 (0-99); MEAN CELL HEMOGLOBIN 30.2 pg (27.9-34.1); MEAN CELL HEMOGLOBIN CONCENTR. 35.1 g/dL (32.4-36.7); MEAN PLATELET VOLUME 9.8 fL (8.7-11.7); PLATELET CLUMPS FLAG 0 (0-99); PLATELET COUNT 318 10^3/uL (150-400); RED CELL DISTRIBUTION WIDTH 11.9 % (11.5-15.2)
[2017-06-06 08:39] LABS: ALANINE AMINOTRANSFERASE 35 IU/L (21-72); ALBUMIN 4.9 g/dL (3.5-5.0); ALKALINE PHOSPHATASE 105 IU/L (38-126); ANION GAP 22 mEq/L (8-16); ASPARTATE AMINOTRANSFERASE 22 IU/L (17-59); BILIRUBIN,TOTAL 1.8 mg/dL (0.1-1.4); BILIRUBIN-CONJUGATED 0.4 mg/dL (0.0-0.5); BILIRUBIN-UNCONJUGATED 1.4 mg/dL (0.0-1.1); CARBON DIOXIDE 24 mEq/l (22-31); CHLORIDE 83 mEq/L (97-110); CREATININE 0.8 mg/dL (0.7-1.3); GLOMERULAR FILTRATION RATE > 60; GLUCOSE 447 mg/dL (70-100); POTASSIUM 4.1 mEq/L (3.5-5.2); SODIUM 129 mEq/L (134-144); TOTAL PROTEIN 8.3 g/dL (6.3-8.2)
[2017-06-06] MEDS ORDERED: INSULIN REGULAR HUMAN 100 UNIT/ML IVP ONE (09:10)
[2017-06-06] MEDS ORDERED: INSULIN REGULAR HUMAN 100 UNIT, COSIGN. REQUIRED 1 EA in NS 100 ML IV ONE (09:17)
[2017-06-06] MEDS ORDERED: D50W 25 GM/50 ML SYR IVP PRN ×2 (09:43→12:49)
[2017-06-06] MEDS ORDERED: ACETAMINOPHEN 325 MG TAB PO PRN (09:43)
[2017-06-06] MEDS ORDERED: FAMOTIDINE 20 MG/NACL 50 ML IV SCH (09:45)
[2017-06-06] MEDS ORDERED: NS 1,000 ML IV SCH (09:45)
[2017-06-06 09:49] LABS: B-HYDROXYBUTYRATE 3.78 mmol/L (0.02-0.27)
[2017-06-06] MEDS ORDERED: NS W/ 20 KCl/L 1,000 ML IV SCH (10:00)
[2017-06-06] MEDS ORDERED: INSULIN REGULAR HUMAN 100 UNIT in NS 100 ML IV SCH (10:00)
[2017-06-06 10:09] LABS: COLOR YELLOW; LEUKOCYTE ESTERASE,URINE NEGATIVE (NEGATIVE); NITRITE,URINE NEGATIVE (NEGATIVE)
[2017-06-06 11:20] VITALS: TEMP 98.2
[2017-06-06 12:11] LABS: ANION GAP 10 mEq/L (8-16); CALCIUM 8.4 mg/dL (8.5-10.4); CARBON DIOXIDE 24 mEq/l (22-31); CHLORIDE 96 mEq/L (97-110); CREATININE 0.7 mg/dL (0.7-1.3); GLOMERULAR FILTRATION RATE > 60; GLUCOSE 261 mg/dL (70-100); POTASSIUM 3.8 mEq/L (3.5-5.2); SODIUM 130 mEq/L (134-144)
[2017-06-06] MEDS ORDERED: PROTOCOL POTASSIUM 1 DOSE MISC PRN (12:14)
[2017-06-06] MEDS ORDERED: PROTOCOL MAGNESIUM 1 DOSE IV PRN (12:14)
[2017-06-06 12:20] VITALS: BP 115/68; PULSE 79; RESP 16; O2SAT 98
[2017-06-06] MEDS ORDERED: POTASSIUM Cl (KCl) 10 MEQ/100 ML BAG IV ONE (12:27)
[2017-06-06] MEDS ORDERED: D5W 1/2 NS 1,000 ML IV SCH (12:30)
[2017-06-06] MEDS: POTASSIUM Cl (KCl) 100 ML IV SCH ×2 (12:45→13:44)
--- NOTE | 2017-06-06 12:53 | PDGENHP ---
History and Physical - Chief Complaint N/V - History of Present Illness 31 yo male with h/o type 1 DM and previous admissions for DKA presents to ED with persistent nausea and vomiting. He has a h/o cannabis hyperemesis syndrome and reports he has significantly cut back on his marijuana use. He is compliant with his insulin and reports recent bg's in 100-200 range. Last night , he developed N/V and it persisted today so he presented to the ED where he was noted to have a BG >400 and an elevated anion gap. He denies fevers/chills , CP, SOB, abdominal pain or urinary symptoms. He is admitted to the ICU for further management. History Information - Allergies/Home Medication List Allergies/Adverse Reactions: No Known Allergies Allergy (Verified 06/06/17 07:59) Home Medications: Gabapentin [Neurontin 300 MG (*)] 900 mg PO TID 03/18/17 [Last Taken 03/22/17] Cymbalta 06/06/17 [Last Taken Unknown] I have personally reviewed and updated: family history, medical history, social history, surgical history - Past Medical History diabetes type 1 Additional medical history: daily marijuana use, h/o alcohol abuse - Surgical History Reports: no pertinent surgical hx - Family History Positive for: diabetes type II - Social History Smoking Status: Former smoker Alcohol Use: Occasionally Drug Use: Marijuana Additional social history: 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 Has a girlfriend Review of Systems Review of Systems: ROS: 10pt was reviewed & negative except for what was stated in HPI & below Physical Exam Physical Exam: Temp Pulse Resp BP Pulse Ox 36.8 C 79 16 115/68 98 06/06/17 11:19 06/06/17 12:00 06/06/17 12:00 06/06/17 12:00 06/06/17 12:00 Constitutional: no apparent distress Eyes: PERRL Ears, Nose, Mouth, Throat: moist mucous membranes Cardiovascular: regular rate and rhythym Respiratory: no respiratory distress, clear to auscultation Gastrointestinal: normoactive bowel sounds, soft, non-tender abdomen Skin: warm Musculoskeletal: full muscle strength Neurologic: AAOx3 Psychiatric: interacting appropriately Lab Data & Imaging Review 06/06/17 08:18 06/06/17 11:40 WBC 12.70 10^3/uL (3.80-9.50) H 06/06/17 08:18 RBC 5.20 10^6/uL (4.40-6.38) 06/06/17 08:18 Hgb 15.7 g/dL (13.7-17.5) 06/06/17 08:18 POC Hgb 14.6 gm/dL (13.7-17.5) 06/06/17 10:22 Hct 44.7 % (40.0-51.0) 06/06/17 08:18 POC Hct 43 % (40-51) 06/06/17 10:22 MCV 86.0 fL (81.5-99.8) 06/06/17 08:18 MCH 30.2 pg (27.9-34.1) 06/06/17 08:18 MCHC 35.1 g/dL (32.4-36.7) 06/06/17 08:18 RDW 11.9 % (11.5-15.2) 06/06/17 08:18 Plt Count 318 10^3/uL (150-400) 06/06/17 08:18 MPV 9.8 fL (8.7-11.7) 06/06/17 08:18 Neut % (Auto) 81.0 % (39.3-74.2) H 06/06/17 08:18 Lymph % (Auto) 10.4 % (15.0-45.0) L 06/06/17 08:18 Millard % (Auto) 7.5 % (4.5-13.0) 06/06/17 08:18 Eos % (Auto) 0.1 % (0.6-7.6) L 06/06/17 08:18 Baso % (Auto) 0.2 % (0.3-1.7) L 06/06/17 08:18 Nucleat RBC Rel Count 0.0 % (0.0-0.2) 06/06/17 08:18 Absolute Neuts (auto) 10.29 10^3/uL (1.70-6.50) H 06/06/17 08:18 Absolute Lymphs (auto) 1.32 10^3/uL (1.00-3.00) 06/06/17 08:18 Absolute Monos (auto) 0.95 10^3/uL (0.30-0.80) H 06/06/17 08:18 Absolute Eos (auto) 0.01 10^3/uL (0.03-0.40) L 06/06/17 08:18 Absolute Basos (auto) 0.03 10^3/uL (0.02-0.10) 06/06/17 08:18 Absolute Nucleated RBC 0.00 10^3/uL (0-0.01) 06/06/17 08:18 Immature Gran % 0.8 % (0.0-1.1) 06/06/17 08:18 Immature Gran # 0.10 10^3/uL (0.00-0.10) 06/06/17 08:18 POC Sodium 133 mEq/L (134-144) L 06/06/17 10:22 Sodium 130 mEq/L (134-144) L 06/06/17 11:40 POC Potassium 3.5 mEq/L (3.3-5.0) 06/06/17 10:22 Potassium 3.8 mEq/L (3.5-5.2) 06/06/17 11:40 POC Chloride 93 mEq/L (97-110) L 06/06/17 10:22 Chloride 96 mEq/L (97-110) L D 06/06/17 11:40 Carbon Dioxide 24 mEq/l (22-31) 06/06/17 11:40 Anion Gap 10 mEq/L (8-16) 06/06/17 11:40 POC BUN 21 mg/dL (7-23) 06/06/17 10:22 BUN 19 mg/dL (7-23) 06/06/17 11:40 Creatinine 0.7 mg/dL (0.7-1.3) 06/06/17 11:40 POC Creatinine 0.8 mg/dL (0.7-1.3) 06/06/17 10:22 Estimated GFR > 60 06/06/17 11:40 Glucose 261 mg/dL (70-100) H 06/06/17 11:40 POC Glucose 300 mg/dL (70-100) H 06/06/17 10:22 Calcium 8.4 mg/dL (8.5-10.4) L D 06/06/17 11:40 Magnesium 1.6 mg/dL (1.6-2.3) 06/06/17 08:15 Total Bilirubin 1.8 mg/dL (0.1-1.4) H 06/06/17 08:18 Conjugated Bilirubin 0.4 mg/dL (0.0-0.5) 06/06/17 08:18 Unconjugated Bilirubin 1.4 mg/dL (0.0-1.1) H 06/06/17 08:18 AST 22 IU/L (17-59) 06/06/17 08:18 ALT 35 IU/L (21-72) 06/06/17 08:18 Alkaline Phosphatase 105 IU/L (38-126) 06/06/17 08:18 Total Protein 8.3 g/dL (6.3-8.2) H 06/06/17 08:18 Albumin 4.9 g/dL (3.5-5.0) 06/06/17 08:18 Lipase 51 IU/L (23-300) 06/06/17 08:18 Beta-Hydroxybutyrate 3.78 mmol/L (0.02-0.27) H 06/06/17 08:18 Urine Color YELLOW 06/06/17 09:45 Urine Appearance CLEAR 06/06/17 09:45 Urine pH 5.0 (5.0-7.5) 06/06/17 09:45 Ur Specific [place] 1.031 (1.002-1.030) H 06/06/17 09:45 Urine Protein NEGATIVE (NEGATIVE) 06/06/17 09:45 Urine Ketones 2+ (NEGATIVE) H 06/06/17 09:45 Urine Blood NEGATIVE (NEGATIVE) 06/06/17 09:45 Urine Nitrate NEGATIVE (NEGATIVE) 06/06/17 09:45 Urine Bilirubin NEGATIVE (NEGATIVE) 06/06/17 09:45 Urine Urobilinogen NEGATIVE EU (0.2-1.0) 06/06/17 09:45 Ur Leukocyte Esterase NEGATIVE (NEGATIVE) 06/06/17 09:45 Urine RBC 1-3 /hpf (0-3) 06/06/17 09:45 Urine WBC 1-3 /hpf (0-3) 06/06/17 09:45 Ur Epithelial Cells NONE SEEN /lpf (NONE-1+) 06/06/17 09:45 Hyaline Casts 1-5 /lpf (0-1) 06/06/17 09:45 Urine Glucose 3+ (NEGATIVE) H 06/06/17 09:45 Assessment & Plan Assessment: Type 1 DM with hyperglycemia and non-acidotic elevated anion gap - Likely developing early DKA though not acidemic. Will initiate DKA protocol -admit to ICU -insulin drip per DKA protocol -transition to SC insulin when gap closed -clears for now -replace lytes per protocol N/V - pt has h/o cannabis hyperemesis syndrome. Also consider diabetic gastroparesis. -prn zofran, reglan may be helpful as a pro-motility agent -consider outpt gastric emptying study Full code Dispo - inpt, ICU
[2017-06-06] MEDS ORDERED: INSULIN DETEMIR 35 UNIT SC SCH (13:00)
[2017-06-06] MEDS ORDERED: INSULIN GLARGINE 100 UNITS/ML SYRINGE SC ONE (15:00)
[2017-06-06] MEDS ORDERED: GABAPENTIN 300 MG CAP PO SCH (16:00)
--- NOTE | 2017-06-06 17:19 | ASDISCHSUM ---
Discharge Information Plan Status: Medically Cleared to Leave: Discharge Date:06/06/2017 03:00 PM CM D/C Disposition:Against Medical Advice ADT D/C Disposition:Against Medical Advice Projected Discharge Date:06/06/2017 03:00 PM Transportation at D/C:None or Unknown Discharge Delay Reason: Follow-Up Date:06/06/2017 03:00 PM Discharge Slot: Final Diagnosis:Diabetes Type I, early DKA, hyperglycemia, N/V Placement Information Patient Contact Information Contact Name:GIANCARLO Relationship:Other Address:[address] [place] [address] Work Phone: [facility]:[place] Alternate Phone: [facility]/Zip Code:[place] [address] Email: Financial Information Financial Class:Self-Pay Primary Plan Desc:SELF PAY Primary Plan Number: Secondary Plan Desc: Secondary Plan Number: Assessment Information [facility] CM Progress Note CM Note CM Note Notes: Reviewed chart re: d/c poc. Pt admitted w/ type I diabetes, hyperglycemia, early DKA. Pt left AMA. CM avail for any further needs or concerns. Date Signed: 06/06/2017 05:18 PM Electronically Signed By:Lissa Cat RN Intervention Information
[2017-06-06] MEDS ORDERED: INSULIN LISPRO 100 UNIT/ML SC SCH (18:00)
--- NOTE | 2017-06-06 19:47 | PDDCSUM ---
Discharge Summary Discharge Summary: Pt admitted today with early DKA. He was seen and evaluated in the ICU on an insulin drip. His gap closed and the plan was to transition him to SC insulin. He opted to abruptly leave AMA after receiving Lantus injection. He was A&O x4 and understood the risks of worsening DKA or life threatening acidemia.
[2017-06-06] MEDS ORDERED: INSULIN DETEMIR 25 UNIT SQ SCH (21:00)
== END 2017-06-06 15:00 | disposition left against medical advice (07) | DRG 639 ==
LOC: F2N 11:11
PROVIDERS: ADMIT Hospitalist; ATTEND Hospitalist
DX: E10.10 Type 1 diabetes mellitus with ketoacidosis without coma (principal); E10.65 Type 1 diabetes mellitus with hyperglycemia; F12.90 Cannabis use, unspecified, uncomplicated; Z72.89 Other problems related to lifestyle; Z87.891 Personal history of nicotine dependence
CPT/HCPCS: 82947-QW; 96374; J1200; J1815; J2765

== ENCOUNTER 2017-09-03 08:02 | Emergency (ER) | payer OTHER ==
[2017-09-03 08:06] VITALS: TEMP 98.1
[2017-09-03] MEDS ORDERED: HYDROmorphONE/DILAUDID 1 MG/ML INJ IVP ONE (08:26)
[2017-09-03] MEDS ORDERED: ONDANSETRON 4 MG/2 ML VIAL IVP ONE (08:26)
[2017-09-03] MEDS ORDERED: FAMOTIDINE 20 MG/NACL 50 ML IV ONE (08:26)
[2017-09-03] MEDS ORDERED: NS 1,000 ML IV ONE ×2 (08:26→09:55)
--- NOTE | 2017-09-03 08:30 | EDPHY ---
H & P Stated Complaint: Vomiting for 48 hours. Time Seen by Provider: 09/03/17 08:22 HPI/ROS: CHIEF COMPLAINT: Vomiting HISTORY OF PRESENT ILLNESS: The patient is a 32-year-old man with a history of type 1 diabetes and previous visits for DKA who comes to the emergency department complaining of vomiting for the last 36 hr. He thinks that it is from cannabis hyperemesis syndrome. He states that his symptoms improve with hot showers or baths. He states that this does not feel like his previous episodes of DKA. He states that he has been checking his glucose and it is been around 170. He has Not had a fever. No diarrhea. No abdominal pain. REVIEW OF SYSTEMS: Constitutional: denies: chills, fever, recent illness, recent injury EENTM: denies: blurred vision, double vision, nose congestion Respiratory: denies: cough, shortness of breath Cardiac: denies: chest pain, irregular heart rate, lightheadedness, palpitations Gastrointestinal/Abdominal: denies: abdominal pain, diarrhea, nausea, vomiting, blood streaked stools Genitourinary: denies: dysuria, frequency, hematuria, pain Musculoskeletal: denies: joint pain, muscle pain Skin: denies: lesions, rash, jaundice, bruising Neurological: denies: headache, numbness, paresthesia, tingling, dizziness, weakness Hematologic/Lymphatic: denies: blood clots, easy bleeding, easy bruising Immunologic/allergic: denies: HIV/AIDS, transplant EXAM: GENERAL: Retching HEAD: Atraumatic, normocephalic. EYES: Pupils equal round and reactive to light, extraocular movements intact, sclera anicteric, conjunctiva are normal. ENT: TMs normal, nares patent, oropharynx clear without exudates. Moist mucous membranes. NECK: Normal range of motion, supple without lymphadenopathy or JVD. LUNGS: Breath sounds clear to auscultation bilaterally and equal. No wheezes rales or rhonchi. HEART: Regular rate and rhythm without murmurs, rubs or gallops. ABDOMEN: Soft, nontender, normoactive bowel sounds. No guarding, no rebound. No masses appreciated. BACK: No CVA tenderness, no spinal tenderness, step-offs or deformities EXTREMITIES: Normal range of motion, no pitting or edema. No clubbing or cyanosis. NEUROLOGICAL: Cranial nerves II through XII grossly intact. Normal speech, normal gait. 5/5 strength, normal movement in all extremities, normal sensation PSYCH: Normal mood, normal affect. SKIN: Warm, dry, normal turgor, no visible rashes or lesions. Source: Patient Exam Limitations: No limitations - Personal History Current Tetanus Diphtheria and Acellular Pertussis (TDAP): Yes Tetanus Vaccine Date: WITHIN 10 YRS - Medical/Surgical History Hx Asthma: No Hx Chronic Respiratory Disease: No Hx Diabetes: Yes Hx Cardiac Disease: No Hx Renal Disease: No Hx Cirrhosis: No Hx Alcoholism: No Hx HIV/AIDS: No Hx Splenectomy or Spleen Trauma: No Other PMH: type 1 DIABETES; N/V - Family History Significant Family History: No pertinent family hx - Social History Smoking Status: Former smoker Drug Use: Marijuana Constitutional: Initial Vital Signs Temperature (C) 36.7 C 09/03/17 08:02 Heart Rate 114 H 09/03/17 08:02 Respiratory Rate 18 09/03/17 08:02 Blood Pressure 120/81 H 09/03/17 08:02 O2 Sat (%) 98 09/03/17 08:02 O2 Delivery Mode Room Air Allergies/Adverse Reactions: No Known Allergies Allergy (Verified 06/06/17 07:59) Home Medications: Medication Instructions Recorded Gabapentin [Neurontin 300 MG (*)] 900 mg PO TID 03/18/17 Insulin Aspart [novoLOG] 0 unit SC TIDMEAL #0 03/26/17 Insulin Detemir [Levemir] 25 unit SQ HS #0 03/26/17 Insulin Detemir [Levemir] 35 units SC DAILY #0 03/26/17 Cymbalta 06/06/17 Ondansetron Odt [Zofran Odt 4 mg 4 mg PO Q4 PRN #20 tab 09/03/17 (RX)] Medical Decision Making ED Course/Re-evaluation: 9:50 a.m. The patient is slightly acidotic. He is refusing admission. She is requesting more nausea medication. We will try Haldol. We will continue to treat with IV fluids. He states he took insulin just before arriving. Will recheck his glucose. 12:00 p.m. the patient's electrolytes are looking much better. He continues to wish to go home. I will treat him with more potassium. He has not had any further nausea vomiting since treatment. 12:30 p.m. the patient took another dose of potassium. He is eager to go and has taken his IV out. He declines further treatment. He would like a prescription for Zofran. We discussed indications for returning. He is tolerating p.o.. Differential Diagnosis: Partial list of the Differential diagnosis considered include but were not limited to; cyclic vomiting, DKA, gastritis, food poisoning, cannabis abuse and although unlikely based on the history and physical exam, I also considered appendicitis, biliary disease. I discussed these differential diagnoses and the plan with the patient as well as the usual and expected course. The patient understands that the diagnosis is provisional and that in medicine we are not always correct and that further workup is often warranted. Usual and customary warnings were given. All of the patient's questions were answered. The patient was instructed to return to the emergency department should the symptoms at all worsen or return, otherwise to followup with the physician as we discussed. - Data Points Laboratory Results: Laboratory Results 09/03/17 08:21 09/03/17 11:24 09/03/17 09/03/17 09/03/17 11:24 10:16 08:21 WBC RBC Hgb POC Hgb 15.6 gm/dL gm/dL (13.7-17.5) Hct POC Hct 46 % % (40-51) MCV MCH MCHC RDW Plt Count MPV Neut % (Auto) Lymph % (Auto) [place] % (Auto) Eos % (Auto) Baso % (Auto) Nucleat RBC Rel Count Absolute Neuts (auto) Absolute Lymphs (auto) Absolute Monos (auto) Absolute Eos (auto) Absolute Basos (auto) Absolute Nucleated RBC Immature Gran % Immature Gran # POC Sodium 130 mEq/L L mEq/L (134-144) Sodium 132 mEq/L L mEq/L 128 mEq/L L mEq/L (134-144) (134-144) POC Potassium 2.9 mEq/L L mEq/L (3.3-5.0) Potassium 3.1 mEq/L L mEq/L 3.6 mEq/L mEq/L (3.5-5.2) (3.5-5.2) POC Chloride 84 mEq/L L mEq/L (97-110) Chloride 89 mEq/L L mEq/L 80 mEq/L L mEq/L (97-110) (97-110) Carbon Dioxide 27 mEq/l mEq/l 23 mEq/l mEq/l (22-31) (22-31) Anion Gap 16 mEq/L mEq/L 25 mEq/L H mEq/L (8-16) (8-16) POC BUN 43 mg/dL H mg/dL (7-23) BUN 44 mg/dL H mg/dL 51 mg/dL H mg/dL (7-23) (7-23) Creatinine 1.1 mg/dL mg/dL 1.5 mg/dL H mg/dL (0.7-1.3) (0.7-1.3) POC Creatinine 1.3 mg/dL mg/dL (0.7-1.3) Estimated GFR > 60 54 Glucose 107 mg/dL H mg/dL 179 mg/dL H mg/dL (70-100) (70-100) POC Glucose 160 mg/dL H mg/dL (70-100) Calcium 9.0 mg/dL D mg/dL 10.7 mg/dL H mg/dL (8.5-10.4) (8.5-10.4) Phosphorus 5.2 mg/dL H mg/dL (2.5-4.5) Magnesium 1.5 mg/dL L mg/dL (1.6-2.3) Total Bilirubin 2.1 mg/dL H mg/dL (0.1-1.4) Conjugated Bilirubin 0.5 mg/dL mg/dL (0.0-0.5) Unconjugated Bilirubin 1.6 mg/dL H mg/dL (0.0-1.1) AST 54 IU/L IU/L (17-59) ALT 110 IU/L H IU/L (21-72) Alkaline Phosphatase 131 IU/L H IU/L (38-126) Total Protein 8.5 g/dL H g/dL (6.3-8.2) Albumin 5.3 g/dL H g/dL (3.5-5.0) Lipase 38 IU/L IU/L (23-300) 09/03/17 08:21 WBC 15.42 10^3/uL H 10^3/uL (3.80-9.50) RBC 5.67 10^6/uL 10^6/uL (4.40-6.38) Hgb 17.2 g/dL g/dL (13.7-17.5) POC Hgb Hct 46.4 % % (40.0-51.0) POC Hct MCV 81.8 fL fL (81.5-99.8) MCH 30.3 pg pg (27.9-34.1) MCHC 37.1 g/dL H g/dL (32.4-36.7) RDW 12.1 % % (11.5-15.2) Plt Count 341 10^3/uL 10^3/uL (150-400) MPV 9.3 fL fL (8.7-11.7) Neut % (Auto) 81.4 % H % (39.3-74.2) Lymph % (Auto) 9.5 % L % (15.0-45.0) [place] % (Auto) 8.3 % % (4.5-13.0) Eos % (Auto) 0.0 % L % (0.6-7.6) Baso % (Auto) 0.2 % L % (0.3-1.7) Nucleat RBC Rel Count 0.0 % % (0.0-0.2) Absolute Neuts (auto) 12.55 10^3/uL H 10^3/uL (1.70-6.50) Absolute Lymphs (auto) 1.46 10^3/uL 10^3/uL (1.00-3.00) Absolute Monos (auto) 1.28 10^3/uL H 10^3/uL (0.30-0.80) Absolute Eos (auto) 0.00 10^3/uL L 10^3/uL (0.03-0.40) Absolute Basos (auto) 0.03 10^3/uL 10^3/uL (0.02-0.10) Absolute Nucleated RBC 0.00 10^3/uL 10^3/uL (0-0.01) Immature Gran % 0.6 % % (0.0-1.1) Immature Gran # 0.10 10^3/uL 10^3/uL (0.00-0.10) POC Sodium Sodium POC Potassium Potassium POC Chloride Chloride Carbon Dioxide Anion Gap POC BUN BUN Creatinine POC Creatinine Estimated GFR Glucose POC Glucose Calcium Phosphorus Magnesium Total Bilirubin Conjugated Bilirubin Unconjugated Bilirubin AST ALT Alkaline Phosphatase Total Protein Albumin Lipase Medications Given: Discontinued Medications Haloperidol Lactate (Haldol Injection) 5 mg IVP EDNOW ONE Stop: 09/03/17 09:55 Last Admin: 09/03/17 09:59 Dose: 5 mg Hydromorphone HCl (Dilaudid) 0.5 mg IVP EDNOW ONE Stop: 09/03/17 08:27 Last Admin: 09/03/17 08:43 Dose: 0.5 mg Sodium Chloride (Ns) 1,000 mls @ 0 mls/hr IV EDNOW ONE; Wide Open PRN Reason: Protocol Stop: 09/03/17 08:27 Last Admin: 09/03/17 08:43 Dose: 1,000 mls Famotidine/Sodium Chloride (Pepcid 20 Mg (Premix)) 50 mls @ 200 mls/hr IV EDNOW ONE Stop: 09/03/17 08:40 Last Admin: 09/03/17 08:44 Dose: 50 mls Sodium Chloride (Ns) 1,000 mls @ 0 mls/hr IV EDNOW ONE; Wide Open PRN Reason: Protocol Stop: 09/03/17 09:56 Last Admin: 09/03/17 09:59 Dose: 1,000 mls Magnesium Sulfate (Magnesium Sulf 2 Gm (Premix)) 50 mls @ 50 mls/hr IV EDNOW ONE Stop: 09/03/17 11:40 Last Admin: 09/03/17 10:50 Dose: 50 mls Insulin Human Regular (Humulin R) 5 unit IVP EDNOW ONE Stop: 09/03/17 10:29 Last Admin: 09/03/17 10:39 Dose: 5 units Lorazepam (Ativan Injection) 0.5 mg IVP EDNOW ONE Stop: 09/03/17 11:17 Last Admin: 09/03/17 11:20 Dose: 0.5 mg Ondansetron HCl (Zofran) 4 mg IVP EDNOW ONE Stop: 09/03/17 08:27 Last Admin: 09/03/17 08:43 Dose: 4 mg Potassium Chloride (Klor-Con) 20 meq PO EDNOW ONE Stop: 09/03/17 10:29 Last Admin: 09/03/17 10:39 Dose: 20 meq Potassium Chloride (Klor Packets) 20 meq PO EDNOW ONE Stop: 09/03/17 12:24 Last Admin: 09/03/17 12:34 Dose: Not Given Potassium Chloride (Klor-Con) 20 meq PO EDNOW ONE Stop: 09/03/17 12:27 Last Admin: 09/03/17 12:30 Dose: 20 meq Point of Care Test Results: 09/03/17 10:16 POC Sodium 130 L POC Potassium 2.9 L POC Chloride 84 L POC BUN 43 H POC Creatinine 1.3 POC Glucose 160 H Departure - Departure Disposition: Home, Routine, Self-Care Clinical Impression: Cannabis hyperemesis syndrome concurrent with and due to cannabis abuse DKA (diabetic ketoacidosis) Qualifiers: Diabetes mellitus type: type 1 Diabetes mellitus complication detail: without coma Qualified Code(s): E10.10 - Type 1 diabetes mellitus with ketoacidosis without coma Nausea & vomiting Qualifiers: Vomiting type: unspecified Vomiting Intractability: non-intractable Qualified Code(s): R11.2 - Nausea with vomiting, unspecified Condition: Fair Instructions: Diabetic Ketoacidosis (DC), Acute Nausea and Vomiting (ED), Cannabis Abuse (ED) Referrals: [facility]INICA,SAVANA [Other] - As per Instructions Prescriptions: Ondansetron Odt [Zofran Odt 4 mg (RX)] 4 mg PO Q4 PRN #20 tab PRN Reason: Nausea & Vomiting
[2017-09-03 08:33] LABS: PLATELET COUNT 341 10^3/uL (150-400)
[2017-09-03] MEDS ORDERED: HALOPERIDOL LACT 5 MG/ML INJ IVP ONE (09:54)
[2017-09-03] MEDS ORDERED: HALOPERIDOL LACT 5 MG/ML INJ ONE (09:56)
[2017-09-03] MEDS ORDERED: INSULIN REGULAR HUMAN 100 UNIT/ML IVP ONE (10:28)
[2017-09-03] MEDS ORDERED: POTASSIUM CL 20 MEQ TAB PO ONE ×2 (10:28→12:26)
[2017-09-03] MEDS ORDERED: MAGNESIUM SULF 2 GM/WATER 50 ML IV ONE (10:41)
[2017-09-03] MEDS ORDERED: LORazepam 2 MG/ML INJ IVP ONE (11:16)
[2017-09-03] MEDS ORDERED: POTASSIUM CL 20 MEQ PKT PO ONE (12:23)
[2017-09-03] MEDS ORDERED: POTASSIUM CL 20 MEQ TAB ONE (12:24)
[2017-09-03 12:32] VITALS: BP 131/76; PULSE 94; RESP 16; O2SAT 97
== END 2017-09-03 12:39 | disposition home or self-care (01) ==
DX: E10.10 Type 1 diabetes mellitus with ketoacidosis without coma (principal); F12.188 Cannabis abuse with other cannabis-induced disorder; Z87.891 Personal history of nicotine dependence
CPT/HCPCS: 82947-QW; 96374; J1170; J1630; J1815; J2060; J2405

== ENCOUNTER 2017-09-04 03:40 | Observation (INO) | payer OTHER ==
--- NOTE | 2017-09-04 03:41 | EDPHY ---
H & P HPI/ROS: HPI CHIEF COMPLAINT: Nausea vomiting and abdominal pain HISTORY OF PRESENT ILLNESS: Patient is a 32-year-old male, presents emergency room with abdominal pain diffuse cramping, rather severe 8 of 10, additionally nausea vomiting. Patient reports that he has been vomiting for the past 36 hr. Patient was recently seen in the emergency room for this refused hospital admission but did well with IV fluids and Haldol and went home. After going home he states that he started vomiting again. She has been vomiting all night decided come back to the emergency room. This time he does tell me that his abdomen hurts. Denies any diarrhea or fever. Patient reports to me that he thinks this is cannabinoid hyperemesis syndrome. He has had this in the past. He continues to smoke marijuana. Denies chest pain or shortness of breath. Denies fever. Past Medical History: Diabetes, hyperemesis cannabinoid syndrome Past Surgical History: Denies any surgical history Social History: Smokes marijuana regularly. Last 3 days ago. Family History: Noncontributory ROS REVIEW OF SYSTEMS: A comprehensive 10 point review of systems is otherwise negative aside from elements mentioned in the history of present illness. Exam Constitutional appears nontoxic, but dry, triage nursing summary reviewed, vital signs reviewed, awake/alert. Eyes normal conjunctivae and sclera, EOMI, PERRLA. HENT normal inspection, atraumatic, dehydrated, no epistaxis, neck supple/ no meningismus, no raccoon eyes. Respiratory clear to auscultation bilaterally, normal breath sounds, no respiratory distress, no wheezing. Cardiovascular rate normal, regular rhythm, no murmur, no edema, distal pulses normal. Gastrointestinal soft, tender palpation diffusely, no rebound, no guarding, normal bowel sounds, no distension, no pulsatile mass. Genitourinary no CVA tenderness. Musculoskeletal no midline vertebral tenderness, full range of motion, no calf swelling, no tenderness of extremities, no meningismus, good pulses, neurovascularly intact. Skin pink, warm, & dry, no rash, skin atraumatic. Neurologic awake, alert and oriented x 3, AAOx3, moves all 4 extremities equally, motor intact, sensory intact, CN II-XII intact, normal cerebellar, normal vision, normal speech. Psychiatric normal mood/affect. Heme/Lymph/Immune no lymphadenopathy. Differential Diagnosis: Includes but is not limited to in a particular order, acute nausea vomiting, dehydration, electrolyte disturbance, DKA, cannabinoid hyperemesis syndrome, infection, appendicitis, bowel obstruction, ileus Medical Decision Making: Plan for this patient IV established with IV fluid bolus 2 L normal saline, IV Haldol for nausea vomiting, check electrolytes, given how tender his abdomen is, will proceed with CT scan abdomen pelvis with IV contrast. Re-evaluation: 0517AM: Blood work reviewed. Multiple electrolyte disturbance. Hyponatremia, and hypochloremia. Patient clinically dehydrated. Patient is feeling better after IV Haldol 2.5 mg x2 doses, use receiving a 2nd L at this time. CT scan abdomen pelvis with IV contrast is pending. Most likely will admit for dehydration electrolyte disturbance in the setting of ongoing nausea vomiting. 2nd ER visit. 0627AM: Spoke with Dr. Spivey, agrees to admit. Patient will be admitted for dehydration/nv. Source: Patient - Personal History Tetanus Vaccine Date: WITHIN 10 YRS - Medical/Surgical History Hx Asthma: No Hx Chronic Respiratory Disease: No Hx Diabetes: Yes Hx Cardiac Disease: No Hx Renal Disease: No Hx Cirrhosis: No Hx Alcoholism: No Hx HIV/AIDS: No Hx Splenectomy or Spleen Trauma: No Other PMH: type 1 DIABETES; N/V - Social History Smoking Status: Former smoker Constitutional: Initial Vital Signs Temperature (C) 36.8 C 09/04/17 03:46 Heart Rate 107 H 09/04/17 03:46 Respiratory Rate 20 09/04/17 03:46 Blood Pressure 124/87 H 09/04/17 03:46 O2 Sat (%) 99 09/04/17 03:46 O2 Delivery Mode Room Air Allergies/Adverse Reactions: No Known Allergies Allergy (Unverified 09/04/17 03:41) Home Medications: Medication Instructions Recorded Gabapentin [Neurontin 300 MG (*)] 900 mg PO TID 03/18/17 Insulin Aspart [novoLOG] 0 unit SC TIDMEAL #0 03/26/17 Insulin Detemir [Levemir] 25 unit SQ HS #0 03/26/17 Insulin Detemir [Levemir] 35 units SC DAILY #0 03/26/17 Ondansetron Odt [Zofran Odt 4 mg 4 mg PO Q4 PRN #20 tab 09/03/17 (*)] DULoxetine [Cymbalta 60 MG (*)] 60 mg PO DAILY 09/04/17 Promethazine HCl [Phenergan 25 mg AL BID #30 suppr 09/04/17 Rectal] Medical Decision Making - Data Points Laboratory Results: Laboratory Results 09/04/17 04:16 09/04/17 04:16 Medications Given: Discontinued Medications Gabapentin (Neurontin) 900 mg PO TID BRE Stop: 03/03/18 15:59 Last Admin: 09/04/17 16:09 Dose: 900 mg Haloperidol Lactate (Haldol Injection) 2.5 mg IVP EDNOW ONE Stop: 09/04/17 03:58 Last Admin: 09/04/17 04:18 Dose: 2.5 mg Haloperidol Lactate (Haldol Injection) 2.5 mg IVP EDNOW ONE Stop: 09/04/17 04:43 Last Admin: 09/04/17 05:06 Dose: 2.5 mg Sodium Chloride (Ns) 1,000 mls @ 0 mls/hr IV EDNOW ONE; Wide Open PRN Reason: Protocol Stop: 09/04/17 03:58 Last Admin: 09/04/17 04:18 Dose: 1,000 mls Famotidine/Sodium Chloride (Pepcid 20 Mg (Premix)) 50 mls @ 200 mls/hr IV EDNOW ONE Stop: 09/04/17 04:42 Last Admin: 09/04/17 04:30 Dose: 50 mls Sodium Chloride (Ns) 1,000 mls @ 0 mls/hr IV ONCE ONE PRN Reason: Wide Open Stop: 09/04/17 04:43 Last Admin: 09/04/17 05:06 Dose: 1,000 mls Sodium Chloride (Ns) 1,000 mls @ 0 mls/hr IV ONCE ONE PRN Reason: Wide Open Stop: 09/04/17 06:27 Last Admin: 09/04/17 06:53 Dose: 1,000 mls Lactated Ringer's (Lr) 1,000 mls @ 125 mls/hr IV CONT BRE Stop: 03/03/18 07:29 Last Admin: 09/04/17 10:45 Dose: 1,000 mls Insulin Glargine (Lantus Syringe) 20 units SC BID BRE Stop: 03/03/18 08:59 Last Admin: 09/04/17 10:44 Dose: 20 units Insulin Human Lispro (Humalog Lispro) 0 unit SC TIDMEAL BRE PRN Reason: Protocol Stop: 03/03/18 07:59 Last Admin: 09/04/17 11:26 Dose: 4 units Metoclopramide HCl (Reglan Injection) 10 mg IVP Q6HRS PRN PRN Reason: GI Motility, unable to take PO Stop: 03/03/18 07:02 Last Admin: 09/04/17 08:08 Dose: 10 mg Pantoprazole Sodium (Protonix) 40 mg IVP BID BRE Stop: 03/03/18 08:59 Last Admin: 09/04/17 10:44 Dose: 40 mg Promethazine HCl (Phenergan) 6.25 mg IVP ONCE ONE Stop: 09/04/17 06:20 Last Admin: 09/04/17 06:24 Dose: 6.25 mg Departure - Departure Disposition: [facility] Inpatient Acute Clinical Impression: Dehydration Nausea & vomiting Qualifiers: Vomiting type: unspecified Vomiting Intractability: intractable Qualified Code( s): R11.2 - Nausea with vomiting, unspecified Condition: Fair
[2017-09-04] MEDS ORDERED: HALOPERIDOL LACT 5 MG/ML INJ IVP ONE ×2 (03:57→04:42)
[2017-09-04] MEDS ORDERED: NS 1,000 ML IV ONE ×3 (03:57→06:26)
[2017-09-04] MEDS ORDERED: IOPAMIDOL (ISOVUE-300) 100 ML BTL ONE (04:26)
[2017-09-04] MEDS ORDERED: FAMOTIDINE 20 MG/NACL 50 ML IV ONE (04:28)
[2017-09-04 04:29] LABS: PLATELET COUNT 333 10^3/uL (150-400)
[2017-09-04] MEDS ORDERED: PROMETHAZINE HCL 25 MG/ML INJ IVP ONE (06:19)
[2017-09-04] MEDS ORDERED: ONDANSETRON 4 MG/2 ML VIAL IVP PRN (07:03)
[2017-09-04] MEDS ORDERED: ACETAMINOPHEN 325 MG TAB PO PRN (07:03)
[2017-09-04] MEDS ORDERED: METOCLOPRAMIDE 10 MG/2 ML VIAL IVP PRN (07:03)
[2017-09-04] MEDS ORDERED: LORazepam 2 MG/ML INJ IVP PRN (07:03)
[2017-09-04] MEDS ORDERED: HYDROmorphONE/DILAUDID 1 MG/ML INJ IVP PRN (07:03)
[2017-09-04] MEDS ORDERED: D50W 25 GM/50 ML SYR IVP PRN (07:09)
[2017-09-04] MEDS ORDERED: LR 1,000 ML IV SCH (07:30)
[2017-09-04] MEDS: INSULIN LISPRO 100 UNIT/ML SC SCH ×2 (08:18→11:26)
[2017-09-04] MEDS ORDERED: HALOPERIDOL LACT 5 MG/ML INJ IVP PRN (08:22)
--- NOTE | 2017-09-04 08:51 | GHP ---
[f rep st] HISTORY AND PHYSICAL DATE OF ADMISSION: 09/04/2017 CHIEF COMPLAINT: Nausea, vomiting. HISTORY OF PRESENT ILLNESS: This is a 32-year-old man with a history of type 1 diabetes, as well as suspected marijuana hyperemesis, presents to the ED for the 2nd time in 2 days. He has had uncontrol led nausea and vomiting for about the last 3 days. He has vomited countless times. This has been no nbloody. This is associated with some left upper quadrant crampy abdominal pain as well as some refl ux but no diarrhea. This feels very similar to his previous episodes, this is approximately his 8th admission for the same. Warm showers help his symptoms. PAST MEDICAL/SURGICAL HISTORY: 1. Diabetes mellitus type 1, late onset, diagnosed at age 26. 2. Marijuana hyperemesis syndrome. 3. History of alcohol. MEDICATIONS: Please see medication reconciliation. ALLERGIES: No known drug allergies. FAMILY HISTORY: No diabetes. SOCIAL HISTORY: Quit drinking entirely 4 months ago. He is still smoking marijuana. He does not sm eddi tobacco. REVIEW OF SYSTEMS: A 10-point review of systems is conducted and is negative except per HPI. PHYSICAL EXAM: VITAL SIGNS: Blood pressure 110/60, heart rate 96, respiration rate 14, saturating 9 2% on room air. Temperature is 37.1. GENERAL: The patient is a very pleasant man who appears somew hat uncomfortable and pale, lying in bed. HEENT: Normocephalic, atraumatic. CARDIOVASCULAR: Regul ar rate and rhythm. No murmurs, rubs, or gallops. PULMONARY: Lungs clear to auscultation bilateral ly. ABDOMEN: Soft. He is mildly tender to palpation to the left upper quadrant. There is no guard ing or rebound tenderness. SKIN: No rash. : No [place]. NEUROLOGIC: Alert and oriented x3. He is moving all extremities. PSYCHIATRIC: Normal mood and affect. LABS: His white count is 13.3. Sodium 130, bicarb is 23. His anion gap is 22. He has a total bili velázquez of 2.5, 1.9 of that is unconjugated. ALT is 84, alkaline phosphatase is 129. DATA: 1. I reviewed his chart. 2. I discussed this with Adry Gama. 3. I reviewed his abdominal CT scan that shows splenomegaly, mild at 11.4 cm, otherwise negative. IMPRESSION AND PLAN: This is a 32-year-old man with likely marijuana hyperemesis. 1. Intractable nausea vomiting, suspected marijuana hyperemesis: Provide him with supportive measur es including antiemetics, IV fluids. We will give him clear liquids for now. I counseled him on com plete marijuana cessation. He should follow up with GI, he has never seen a GI doctor. He is compla ining of some gastroesophageal reflux disease. I will give him Protonix. Follow his clinical course . 2. Diabetes mellitus type 1: Normally takes a total of 60 units of long-acting insulin a day, I mecca l decrease this to 40 given his present status, follow his blood sugars, provide additional sliding s suresh insulin. May need to go up on his long-acting insulin. 3. Elevated anion gap. He is not acidotic. We will follow his electrolytes daily. 4. Mildly elevated liver function tests: No right upper quadrant tenderness. Will check hepatitis serologies. Liver was unremarkable on CAT scan. 5. Hyponatremia: This is likely a mild component of pseudohyponatremia as well as hypovolemia: Thi s should come up nicely with treatment. 6. Leukocytosis: Suspect stress reaction. Abdominal CT scan shows no intraabdominal infection. /[id number]/MODL
[2017-09-04] MEDS ORDERED: PANTOPRAZOLE SODIUM 40 MG VIAL IVP SCH (09:00)
[2017-09-04] MEDS ORDERED: INSULIN GLARGINE 100 UNITS/ML SYRINGE SC SCH (09:00)
[2017-09-04 11:34] LABS: HEPATITIS B SURFACE ANTIGEN NEGATIVE (NEGATIVE)
[2017-09-04 11:40] LABS: HEPATITIS A ANTIBODY IGM (BCH) NEGATIVE (NEGATIVE); HEPATITIS B CORE AB IGM NEGATIVE (NEGATIVE)
[2017-09-04 11:52] LABS: HEPATITIS C ANTIBODY TOTAL NEGATIVE (NEGATIVE)
--- NOTE | 2017-09-04 13:01 | ASMTCASEMG ---
Living Arrangements What is your living Answers: With Other (Not Family) arrangement? Who do you live with? Type Of Residence What kind of residence do Answers: Apartment you live in? Discharge Plan Comments Coordination Status Comments Notes: Pt is a 32 y/o man admitted for nausea and vomiting. Pt recently presented at [facility] ED 2 days ago. Anticipates that pt will d/c independent when medically stable. No therapies ordered at this time. CM available for changes. Plan: Independent Date Signed: 09/04/2017 01:01 PM Electronically Signed By:MIGUELINA Sanchez
[2017-09-04 15:36] VITALS: BP 117/71; PULSE 78; RESP 18; TEMP 97.9; O2SAT 96
[2017-09-04] MEDS ORDERED: GABAPENTIN 300 MG CAP PO SCH (16:00)
--- NOTE | 2017-09-04 16:32 | ASDISCHSUM ---
Discharge Information Plan Status:Home with No Needs Medically Cleared to Leave:09/03/2017 Discharge Date:09/04/2017 04:20 PM CM D/C Disposition: ADT D/C Disposition:Home, Routine, Self-Care Projected Discharge Date:09/04/2017 12:00 AM Transportation at D/C: Discharge Delay Reason: Follow-Up Date:09/04/2017 12:00 AM Discharge Slot: Final Diagnosis: Placement Information Patient Contact Information Contact Name:GIANCARLO Relationship:Other [address] Work Phone: City:[place] Alternate Phone: State/Zip Code:[place] [address] Email: Financial Information Financial Class:Self-Pay Primary Plan Desc:[facility] Primary Plan Number:[id number] Secondary Plan Desc: Secondary Plan Number: Assessment Information [facility] Initial CM Assessment Living Arrangements What is your living Answers: With Other (Not Family) arrangement? Who do you live with? Type Of Residence What kind of residence do Answers: Apartment you live in? Discharge Plan Comments Coordination Status Comments Notes: Pt is a 32 y/o man admitted for nausea and vomiting. Pt recently presented at [facility] ED 2 days ago. Anticipates that pt will d/c independent when medically stable. No therapies ordered at this time. CM available for changes. Plan: Independent Date Signed: 09/04/2017 01:01 PM Electronically Signed By:MIGUELINA Sanchez Intervention Information
--- NOTE | 2017-09-04 18:33 | GDS ---
[f rep st] DISCHARGE SUMMARY ALL DIAGNOSES: 1. Acute exacerbation of marijuana hyperemesis syndrome. 2. Diabetes mellitus type 1, late onset adult. 3. Hyponatremia. 4. Hyperglycemia. 5. Mild elevated liver function tests. HOSPITAL COURSE: A 32-year-old man admitted with uncontrolled emesis. This is likely an exacerbatio n of marijuana hyperemesis. His CT scan showed very mild splenomegaly, nothing more concerning. He was treated conservatively with antiemetics and IV hydration. A few hours after admission, he was ab le to tolerate about half of his lunch. He did not eat the other half as he wanted to take it slow. He did not have any nausea or vomiting after doing this. He feels hungry again. He is very anxious for discharge, is ambulating, looks significantly stronger than when I saw him earlier in the day. I think it will be safe. PLAN: He had a previous prescription for Zoloft as well as Zofran oral dissolving tablets. I have a lso given a prescription for Phenergan suppositories to use if he is unable to tolerate p.o. He is d ischarged in stable condition. /[id number]/MODL
[2017-09-05] MEDS ORDERED: DULoxetine 60 MG CAP PO SCH (09:00)
== END 2017-09-04 16:20 | disposition home or self-care (01) ==
LOC: F2W 08:55
PROVIDERS: ADMIT Family Medicine; ATTEND Student in an Organized Health Care Education/Training Program
DX: G43.A0 Cyclical vomiting, in migraine, not intractable (principal); T40.7X5A Adverse effect of cannabis (derivatives), initial encounter; F12.20 Cannabis dependence, uncomplicated; E10.65 Type 1 diabetes mellitus with hyperglycemia; E87.1 Hypo-osmolality and hyponatremia; E86.0 Dehydration
CPT/HCPCS: 74177; G0378; 96374; G0472; J1630; J1815; J2550; Q9967

== ENCOUNTER 2018-04-03 10:45 | Observation (INO) | payer OTHER ==
--- NOTE | 2018-04-03 11:36 | EDPHY ---
H & P Stated Complaint: N/V cramping starting this morning, DM 1, hx cyclic vomitting Time Seen by Provider: 04/03/18 11:34 HPI/ROS: CHIEF COMPLAINT: "I can't stop vomiting"" HISTORY OF PRESENT ILLNESS: 32-year-old male history of cannabis hyperemesis syndrome,, insulin-dependent diabetes, in the ER complaining of nausea, vomiting , without abdominal pain since this morning. No back or flank pain. No Fever or chills. No flu-like symptoms. No recent illness. Patient has been intermittently compliant with his insulin and intermittently compliant with checking serum glucose levels. PRIMARY CARE PROVIDER: REVIEW OF SYSTEMS: A ten point review of systems was performed and is negative with the exception of the items mentioned in the HPI PAST MEDICAL & SURGICAL HISTORY: Insulin-dependent diabetes. Cannabis hyperemesis. SOCIAL HISTORY: Daily marijuana use. PHYSICAL EXAM (Prior to examination, patient consented to physical exam, hands were washed and my usual and customary physical exam procedures followed) 1) GENERAL: Well-developed, well-nourished, alert and oriented. Appears uncomfortable, retching. 2) HEAD: Normocephalic, atraumatic 3) HEENT: Pupils equal, round, reactive to light bilaterally. Sclera anicteric. Nasopharynx, oropharynx, clear, no lesions. Dry mucous membranes 4) NECK: Full range of motion, no meningeal signs. 5) LUNGS: Clear auscultation bilaterally, no wheezes, no rhonchi, no retractions. 6) HEART: Regular rate and rhythm, no murmur, no heave, no gallop. 7) ABDOMEN: Flat, No guarding, no rebound, no focal tenderness, negative McBurney's, negative Hernandez's, negative Rovsing's, negative peritoneal sign, I am unable to elicit any abdominal pain on exam 8) MUSCULOSKELETAL: Moving all extremities, no focal areas of tenderness, no obvious trauma. No peripheral edema or discoloration. 9) BACK: No CVA tenderness, no midline vertebral tenderness, no fluctuance, no step-off, no obvious trauma, no visual or palpable abnormality. 10) SKIN: No rash, no petechiae. 11) Psychiatric: Patient is oriented X 3, there is no agitation. DIFFERENTIAL DIAGNOSIS: In no particular order including but not limited to DKA , hyperglycemia, cannabis hyperemesis syndrome, acute appendicitis - Personal History Tetanus Vaccine Date: WITHIN 10 YRS - Medical/Surgical History Hx Asthma: No Hx Chronic Respiratory Disease: No Hx Diabetes: Yes Hx Cardiac Disease: No Hx Renal Disease: No Hx Cirrhosis: No Hx Alcoholism: No Hx HIV/AIDS: No Hx Splenectomy or Spleen Trauma: No Other PMH: type 1 DM, cyclic vomitting - Social History Smoking Status: Former smoker Constitutional: Initial Vital Signs Temperature (C) 36.7 C 04/03/18 10:48 Heart Rate 75 04/03/18 10:48 Respiratory Rate 22 H 04/03/18 10:48 Blood Pressure 115/83 H 04/03/18 10:48 O2 Sat (%) 98 04/03/18 10:48 O2 Delivery Mode Room Air Allergies/Adverse Reactions: No Known Allergies Allergy (Verified 04/03/18 10:47) Home Medications: Medication Instructions Recorded Insulin Aspart [novoLOG] 0 unit SC TIDMEAL #0 03/26/17 Insulin Detemir [Levemir] 35 units SC BID 04/03/18 Medical Decision Making ED Course/Re-evaluation: Old medical records evaluated by myself. 12 19: Re-evaluation after IV Haldol complaining of continued nausea and retching. Patient is noted to be hyperglycemic. Awaiting further laboratory studies at this time. Will administer further IV fluids and antiemetics 1:13 p.m.: Patient is hyperglycemic without acidosis. He continues to vomit intractable in the emergency department. We discussed possibility of cannabis hyperemesis exacerbation. Recommended admission to the hospital for continued hydration, serum glucose control. Discussed case with secondary supervising physician Dr. Nisha Cai who concurs. Consultation with hospitalist Kristine, admit to Dr. Joce Smith, PCU. Patient is not acidotic. - Data Points Laboratory Results: Laboratory Results 04/03/18 11:35 04/03/18 11:35 04/03/18 04/03/18 04/03/18 12:43 12:43 11:55 WBC RBC Hgb POC Hgb Hct POC Hct MCV MCH MCHC RDW Plt Count MPV Neut % (Auto) Lymph % (Auto) [place] % (Auto) Eos % (Auto) Baso % (Auto) Nucleat RBC Rel Count Absolute Neuts (auto) Absolute Lymphs (auto) Absolute Monos (auto) Absolute Eos (auto) Absolute Basos (auto) Absolute Nucleated RBC Immature Gran % Immature Gran # Puncture Site VENOUS Patient Temperature 37.0 DEGREES DEGREES VBG pH 7.45 H (7.31-7.42) VBG HCO3 21 mEQ/L L mEQ/L (22-26) VBG Total CO2 22 mEq/L mEq/L (21-27) VBG O2 Saturation 92 % H % (65-75) VBG Base Excess -1.5 mEq/L mEq/L (-2.5-2.5) Mixed VBG pCO2 31 mmHg L mmHg (40-44) Mixed VBG pO2 60 mmHG H mmHG (35-40) POC Sodium Sodium POC Potassium Potassium POC Chloride Chloride Carbon Dioxide Anion Gap POC BUN BUN Creatinine POC Creatinine Estimated GFR Glucose POC Glucose Hemoglobin A1c Pending Estim Average Glucose Pending Calcium Phosphorus 1.5 mg/dL L mg/dL (2.5-4.5) Magnesium 1.7 mg/dL mg/dL (1.6-2.3) Total Bilirubin Conjugated Bilirubin Unconjugated Bilirubin AST ALT Alkaline Phosphatase POC Troponin I Total Protein Albumin Lipase Beta-Hydroxybutyrate TNP 04/03/18 04/03/18 04/03/18 11:39 11:39 11:35 WBC RBC Hgb POC Hgb 17.3 gm/dL gm/dL (13.7-17.5) Hct POC Hct 51 % % (40-51) MCV MCH MCHC RDW Plt Count MPV Neut % (Auto) Lymph % (Auto) [place] % (Auto) Eos % (Auto) Baso % (Auto) Nucleat RBC Rel Count Absolute Neuts (auto) Absolute Lymphs (auto) Absolute Monos (auto) Absolute Eos (auto) Absolute Basos (auto) Absolute Nucleated RBC Immature Gran % Immature Gran # Puncture Site Patient Temperature VBG pH VBG HCO3 VBG Total CO2 VBG O2 Saturation VBG Base Excess Mixed VBG pCO2 Mixed VBG pO2 POC Sodium 138 mEq/L mEq/L (135-145) Sodium 135 mEq/L mEq/L (135-145) POC Potassium 5.7 mEq/L H mEq/L (3.3-5.0) Potassium 5.9 mEq/L H mEq/L (3.3-5.0) POC Chloride 98 mEq/L mEq/L (97-110) Chloride 101 mEq/L mEq/L (97-110) Carbon Dioxide 23 mEq/l mEq/l (22-31) Anion Gap 11 mEq/L mEq/L (8-16) POC BUN 25 mg/dL H mg/dL (7-23) BUN 21 mg/dL mg/dL (7-23) Creatinine 0.7 mg/dL mg/dL (0.7-1.3) POC Creatinine 0.8 mg/dL mg/dL (0.7-1.3) Estimated GFR > 60 Glucose 509 mg/dL H* mg/dL (70-100) POC Glucose 501 mg/dL H* mg/dL (70-100) Hemoglobin A1c Estim Average Glucose Calcium 10.3 mg/dL mg/dL (8.5-10.4) Phosphorus Magnesium Total Bilirubin 1.0 mg/dL mg/dL (0.1-1.4) Conjugated Bilirubin 0.4 mg/dL mg/dL (0.0-0.5) Unconjugated Bilirubin 0.6 mg/dL mg/dL (0.0-1.1) AST 35 IU/L IU/L (17-59) ALT 25 IU/L IU/L (21-72) Alkaline Phosphatase 129 IU/L H IU/L (38-126) POC Troponin I 0.00 ng/mL ng/mL (0.00-0.08) Total Protein 7.8 g/dL g/dL (6.3-8.2) Albumin 4.8 g/dL g/dL (3.5-5.0) Lipase 53 IU/L IU/L (23-300) Beta-Hydroxybutyrate 1.17 mmol/L H mmol/L (0.02-0.27) 04/03/18 11:35 WBC 21.09 10^3/uL H 10^3/uL (3.80-9.50) RBC 5.41 10^6/uL 10^6/uL (4.40-6.38) Hgb 16.1 g/dL g/dL (13.7-17.5) POC Hgb Hct 46.4 % % (40.0-51.0) POC Hct MCV 85.8 fL fL (81.5-99.8) MCH 29.8 pg pg (27.9-34.1) MCHC 34.7 g/dL g/dL (32.4-36.7) RDW 12.0 % % (11.5-15.2) Plt Count 320 10^3/uL 10^3/uL (150-400) MPV 10.2 fL fL (8.7-11.7) Neut % (Auto) 90.7 % H % (39.3-74.2) Lymph % (Auto) 5.2 % L % (15.0-45.0) [place] % (Auto) 2.8 % L % (4.5-13.0) Eos % (Auto) 0.0 % L % (0.6-7.6) Baso % (Auto) 0.4 % % (0.3-1.7) Nucleat RBC Rel Count 0.0 % % (0.0-0.2) Absolute Neuts (auto) 19.13 10^3/uL H 10^3/uL (1.70-6.50) Absolute Lymphs (auto) 1.09 10^3/uL 10^3/uL (1.00-3.00) Absolute Monos (auto) 0.58 10^3/uL 10^3/uL (0.30-0.80) Absolute Eos (auto) 0.01 10^3/uL L 10^3/uL (0.03-0.40) Absolute Basos (auto) 0.09 10^3/uL 10^3/uL (0.02-0.10) Absolute Nucleated RBC 0.00 10^3/uL 10^3/uL (0-0.01) Immature Gran % 0.9 % % (0.0-1.1) Immature Gran # 0.19 10^3/uL H 10^3/uL (0.00-0.10) Puncture Site Patient Temperature VBG pH VBG HCO3 VBG Total CO2 VBG O2 Saturation VBG Base Excess Mixed VBG pCO2 Mixed VBG pO2 POC Sodium Sodium POC Potassium Potassium POC Chloride Chloride Carbon Dioxide Anion Gap POC BUN BUN Creatinine POC Creatinine Estimated GFR Glucose POC Glucose Hemoglobin A1c Estim Average Glucose Calcium Phosphorus Magnesium Total Bilirubin Conjugated Bilirubin Unconjugated Bilirubin AST ALT Alkaline Phosphatase POC Troponin I Total Protein Albumin Lipase Beta-Hydroxybutyrate Medications Given: Acetaminophen (Tylenol) 650 mg PO Q4HRS PRN PRN Reason: Pain, Mild/Fever, Can Take PO Stop: 09/30/18 14:40 Last Admin: 04/03/18 15:17 Dose: 650 mg Discontinued Medications Haloperidol Lactate (Haldol Injection) 2.5 mg IVP EDNOW ONE Stop: 04/03/18 12:00 Last Admin: 04/03/18 12:01 Dose: 2.5 mg Dextrose (D10w) 1,000 mls @ 0 mls/hr IV CONT ONE; Per Protocol PRN Reason: Protocol Stop: 04/03/18 12:00 Last Admin: 04/03/18 13:17 Dose: Not Given Sodium Chloride (Ns) 1,000 mls @ 1,000 mls/hr IV EDNOW ONE PRN Reason: Protocol Stop: 04/03/18 12:58 Last Admin: 04/03/18 11:30 Dose: 1,000 mls Sodium Chloride (Ns) 1,000 mls @ 1,000 mls/hr IV EDNOW ONE PRN Reason: Protocol Stop: 04/03/18 13:58 Last Admin: 04/03/18 12:57 Dose: 1,000 mls Insulin Human Regular 100 unit / Miscellaneous Medication 1 ea/ Sodium Chloride 101 mls @ 0 mls/hr IV EDNOW ONE; Per Protocol PRN Reason: Protocol Stop: 04/03/18 12:00 Last Admin: 04/03/18 13:04 Dose: 101 mls Sodium Chloride (Ns) 1,000 mls @ 6,000 mls/hr IV ONCE ONE Stop: 04/03/18 14:50 Last Admin: 04/03/18 15:16 Dose: 1,000 mls Lorazepam (Ativan Injection) 1 mg IVP EDNOW ONE Stop: 04/03/18 12:21 Last Admin: 04/03/18 12:54 Dose: 1 mg Metoclopramide HCl (Reglan Injection) 10 mg IVP EDNOW ONE Stop: 04/03/18 12:21 Last Admin: 04/03/18 12:54 Dose: 10 mg Ondansetron HCl (Zofran) 4 mg IVP EDNOW ONE Stop: 04/03/18 11:42 Last Admin: 04/03/18 12:45 Dose: Not Given Point of Care Test Results: Chemistry 04/03/18 04/03/18 11:39 11:39 POC Sodium 138 mEq/L mEq/L (135-145) POC Potassium 5.7 mEq/L H mEq/L (3.3-5.0) POC Chloride 98 mEq/L mEq/L (97-110) POC BUN 25 mg/dL H mg/dL (7-23) POC Creatinine 0.8 mg/dL mg/dL (0.7-1.3) POC Glucose 501 mg/dL H* mg/dL (70-100) POC Troponin I 0.00 ng/mL ng/mL (0.00-0.08) ISTAT H&H 04/03/18 11:39 POC Hgb 17.3 gm/dL gm/dL (13.7-17.5) POC Hct 51 % % (40-51) Departure - Departure Disposition: [facility] Inpatient Acute Clinical Impression: Cannabis hyperemesis syndrome concurrent with and due to cannabis abuse, Hyperglycemia due to type 1 diabetes mellitus Intractable vomiting Qualifiers: Vomiting type: cyclical vomiting Nausea presence: with nausea Qualified Code(s) : G43.A1 - Cyclical vomiting, intractable Condition: Fair
[2018-04-03] MEDS ORDERED: ONDANSETRON 4 MG/2 ML VIAL IVP ONE (11:41)
[2018-04-03 11:46] LABS: PLATELET COUNT 320 10^3/uL (150-400)
--- NOTE | 2018-04-03 11:53 | CPEKG ---
Heart Rate: 72 RR Interval: 833 P-R Interval: 128 QRSD Interval: 90 QT Interval: 416 QTC Interval: 456 P [place]: 34 QRS [place]: 82 T Wave [place]: 54 EKG Severity - NORMAL ECG - EKG Impression: SINUS RHYTHM Electronically Signed By: Nisha Cai 03-Apr-2018 15:13:04
[2018-04-03] MEDS ORDERED: HALOPERIDOL LACT 5 MG/ML INJ IVP ONE (11:59)
[2018-04-03] MEDS ORDERED: D50W 25 GM/50 ML SYR IVP PRN ×2 (11:59→14:43)
[2018-04-03] MEDS ORDERED: D10W 1,000 ML IV ONE (11:59)
[2018-04-03] MEDS ORDERED: NS 1,000 ML IV ONE ×3 (11:59→14:41)
[2018-04-03] MEDS ORDERED: INSULIN REGULAR HUMAN 100 UNIT, COSIGN. REQUIRED 1 EA in NS 100 ML IV ONE (11:59)
[2018-04-03] MEDS ORDERED: HALOPERIDOL LACT 5 MG/ML INJ ONE (12:00)
[2018-04-03] MEDS ORDERED: LORazepam 2 MG/ML INJ IVP ONE (12:20)
[2018-04-03] MEDS ORDERED: METOCLOPRAMIDE 10 MG/2 ML VIAL IVP ONE (12:20)
[2018-04-03] MEDS ORDERED: PROMETHAZINE HCL 25 MG/ML INJ IVP PRN (14:41)
[2018-04-03] MEDS ORDERED: ONDANSETRON DISINTEGRATING 4 MG TAB PO PRN (14:41)
[2018-04-03] MEDS ORDERED: ONDANSETRON 4 MG/2 ML VIAL IVP PRN (14:41)
[2018-04-03] MEDS ORDERED: ACETAMINOPHEN 325 MG TAB PO PRN (14:41)
--- NOTE | 2018-04-03 15:13 | ASMTCMCOM ---
CM Note CM Note Notes: Pt presented to the ED for N/V. Pt admitted for hyperglycemia due to T1DM, intractable vomiting, and cannabis hyperemesis syndrome. Pt is followed by [facility] in [place] ([phone]) and he reports he has not had any issues getting medication refills, etc. Pt states he has been compliant with his insulin but has not been regularly checking his BGLs because he states "I'm lazy." Pt reports has still been using marijuana daily. Pt states he willing to discuss cannabis hyperemesis syndrome further and is open to better understanding the syndrome. Pt's girlfriend is involved but per pt "she is getting sick of me having to come here every few months and she says it is self-inflicted." When asked what he thought about her statement, he stated "I think there is some truth to it." Consider requesting Behavioral Health RN consult for discussion/education re: cannabis hyperemesis syndrome or if RN not available, at least provide the Mental Health "Patient Education and Resource" packet on Marijuana/Cyclic Vomiting and recommend pt follow up a Behavioral Health Specialist at [facility] if possible. Exact DC needs unknown, CM to follow. Date Signed: 04/03/2018 03:12 PM Electronically Signed By:Lisa Matos RN
--- NOTE | 2018-04-03 15:19 | PDGENHP ---
History and Physical - Chief Complaint "I started feeling sick" - History of Present Illness Mr Bowling is a 32yo M with history of type 1 diabetes, marijauna use who presents with rather acute onset nausea associated with non-bloody, non- bilious vomiting as well as abdominal cramping. Nausea/vomiting improves with hot showers. Denies abdominal pain, diarrhea, preceding illness, recent travel, sick contacts. Had been in usual state of health with normal PO intake yesterday. Was taking insulin as directed but didn't take this morning. Doesn't check BG regularly. Smokes MJ numerous times/day. Denies recent alcohol or recreational drugs. In ED, BG found to be >500 with no significant acidemia. He was given normal saline with improvement in BG and admitted to the floor. I have reviewed his previous hospitalizations. History Information - Allergies/Home Medication List Allergies/Adverse Reactions: No Known Allergies Allergy (Verified 04/03/18 10:47) Home Medications: Insulin Detemir [Levemir] 35 units SC BID 04/03/18 [Last Taken Unknown] I have personally reviewed and updated: family history, medical history, social history, surgical history - Past Medical History diabetes type 1 Additional medical history: daily marijuana use, h/o alcohol abuse, type 1 diabetes - Surgical History Reports: no pertinent surgical hx - Family History Positive for: diabetes type II Additional family history: no family history of autoimmune diseases - Social History Smoking Status: Former smoker Alcohol Use: Other (prior etoh use, none currently) Drug Use: Marijuana (uses multiple times/day) Additional social history: 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 Review of Systems Review of Systems: ROS: 10pt was reviewed & negative except for what was stated in HPI & below Constitutional: Denies: chills, diaphoresis, fever EENMT: Reports: no symptoms Cardiac: Denies: chest pain, edema, lightheadedness, syncope Respiratory: Denies: cough, shortness of breath, wheezing Gastrointestinal: Reports: vomitting, nausea. Denies: blood streaked stools, abdominal pain, abdominal distention, constipation, diarrhea Genitourinary: Denies: burning, discharge Muscolosketal: Denies: back pain, joint swelling Skin: Denies: lesions, rash Neurological: Denies: no symptoms Hematologic/Lymphatic: Denies: easy bruising Physical Exam Physical Exam: Temp Pulse Resp BP Pulse Ox 36.3 C 71 16 143/80 H 94 04/03/18 14:38 04/03/18 14:38 04/03/18 14:38 04/03/18 14:38 04/03/18 14:38 Constitutional: other (mild distress due to nausea) Eyes: PERRL, anicteric sclera, EOMI Ears, Nose, Mouth, Throat: moist mucous membranes, hearing normal, ears appear normal, no oral mucosal ulcers Cardiovascular: regular rate and rhythym, no murmur, rub, or gallop, No edema Respiratory: no respiratory distress, no rales or rhonchi, clear to auscultation Gastrointestinal: normoactive bowel sounds, soft, non-tender abdomen, no palpable masses Genitourinary: no bladder fullness, no bladder tenderness Skin: warm, normal color, no rashes or abrasions, no fluctuance, no induration, No mottled Musculoskeletal: full muscle strength, no muscle tenderness, normal joint ROM, no joint effusions Neurologic: AAOx3 Psychiatric: interacting appropriately, not anxious, not encephalopathic, thought process linear Lymph, Heme, Immunologic: no cervical LAD, no supraclavicular LAD Lab Data & Imaging Review 04/03/18 11:35 04/03/18 11:35 WBC 21.09 10^3/uL (3.80-9.50) H 04/03/18 11:35 RBC 5.41 10^6/uL (4.40-6.38) 04/03/18 11:35 Hgb 16.1 g/dL (13.7-17.5) 04/03/18 11:35 POC Hgb 14.6 gm/dL (13.7-17.5) 04/03/18 14:15 Hct 46.4 % (40.0-51.0) 04/03/18 11:35 POC Hct 43 % (40-51) 04/03/18 14:15 MCV 85.8 fL (81.5-99.8) 04/03/18 11:35 MCH 29.8 pg (27.9-34.1) 04/03/18 11:35 MCHC 34.7 g/dL (32.4-36.7) 04/03/18 11:35 RDW 12.0 % (11.5-15.2) 04/03/18 11:35 Plt Count 320 10^3/uL (150-400) 04/03/18 11:35 MPV 10.2 fL (8.7-11.7) 04/03/18 11:35 Neut % (Auto) 90.7 % (39.3-74.2) H 04/03/18 11:35 Lymph % (Auto) 5.2 % (15.0-45.0) L 04/03/18 11:35 [place] % (Auto) 2.8 % (4.5-13.0) L 04/03/18 11:35 Eos % (Auto) 0.0 % (0.6-7.6) L 04/03/18 11:35 Baso % (Auto) 0.4 % (0.3-1.7) 04/03/18 11:35 Nucleat RBC Rel Count 0.0 % (0.0-0.2) 04/03/18 11:35 Absolute Neuts (auto) 19.13 10^3/uL (1.70-6.50) H 04/03/18 11:35 Absolute Lymphs (auto) 1.09 10^3/uL (1.00-3.00) 04/03/18 11:35 Absolute Monos (auto) 0.58 10^3/uL (0.30-0.80) 04/03/18 11:35 Absolute Eos (auto) 0.01 10^3/uL (0.03-0.40) L 04/03/18 11:35 Absolute Basos (auto) 0.09 10^3/uL (0.02-0.10) 04/03/18 11:35 Absolute Nucleated RBC 0.00 10^3/uL (0-0.01) 04/03/18 11:35 Immature Gran % 0.9 % (0.0-1.1) 04/03/18 11:35 Immature Gran # 0.19 10^3/uL (0.00-0.10) H 04/03/18 11:35 Puncture Site VENOUS 04/03/18 12:43 Patient Temperature 37.0 DEGREES 04/03/18 12:43 VBG pH 7.45 (7.31-7.42) H 04/03/18 12:43 VBG HCO3 21 mEQ/L (22-26) L 04/03/18 12:43 VBG Total CO2 22 mEq/L (21-27) 04/03/18 12:43 VBG O2 Saturation 92 % (65-75) H 04/03/18 12:43 VBG Base Excess -1.5 mEq/L (-2.5-2.5) 04/03/18 12:43 Mixed VBG pCO2 31 mmHg (40-44) L 04/03/18 12:43 Mixed VBG pO2 60 mmHG (35-40) H 04/03/18 12:43 POC Sodium 141 mEq/L (135-145) 04/03/18 14:15 Sodium 135 mEq/L (135-145) 04/03/18 11:35 POC Potassium 3.9 mEq/L (3.3-5.0) 04/03/18 14:15 Potassium 5.9 mEq/L (3.3-5.0) H 04/03/18 11:35 POC Chloride 104 mEq/L (97-110) 04/03/18 14:15 Chloride 101 mEq/L (97-110) 04/03/18 11:35 Carbon Dioxide 23 mEq/l (22-31) 04/03/18 11:35 Anion Gap 11 mEq/L (8-16) 04/03/18 11:35 POC BUN 20 mg/dL (7-23) 04/03/18 14:15 BUN 21 mg/dL (7-23) 04/03/18 11:35 Creatinine 0.7 mg/dL (0.7-1.3) 04/03/18 11:35 POC Creatinine 0.6 mg/dL (0.7-1.3) L 04/03/18 14:15 Estimated GFR > 60 04/03/18 11:35 Glucose 509 mg/dL (70-100) H* 04/03/18 11:35 POC Glucose 284 mg/dL (70-100) H 04/03/18 14:15 Calcium 10.3 mg/dL (8.5-10.4) 04/03/18 11:35 Phosphorus 1.5 mg/dL (2.5-4.5) L 04/03/18 12:43 Magnesium 1.7 mg/dL (1.6-2.3) 04/03/18 12:43 Total Bilirubin 1.0 mg/dL (0.1-1.4) 04/03/18 11:35 Conjugated Bilirubin 0.4 mg/dL (0.0-0.5) 04/03/18 11:35 Unconjugated Bilirubin 0.6 mg/dL (0.0-1.1) 04/03/18 11:35 AST 35 IU/L (17-59) 04/03/18 11:35 ALT 25 IU/L (21-72) 04/03/18 11:35 Alkaline Phosphatase 129 IU/L (38-126) H 04/03/18 11:35 POC Troponin I 0.00 ng/mL (0.00-0.08) 04/03/18 11:39 Total Protein 7.8 g/dL (6.3-8.2) 04/03/18 11:35 Albumin 4.8 g/dL (3.5-5.0) 04/03/18 11:35 Lipase 53 IU/L (23-300) 04/03/18 11:35 Beta-Hydroxybutyrate TNP 04/03/18 12:43 Visualized and Interpreted EKG results: Yes EKG Interpretation: Positive for: normal sinsus rhythm (no ischemia) Assessment & Plan Assessment: Mr Bowling is a 32yo M with history of type 1 diabetes, marijauna abuse who presents with acute onset nausea/vomiting found to be severely hyperglycemic without acidemia. Plan: 1. Hyperglycemia with type 1 diabetes. No significant acidemia and not meeting criteria for DKA. Suspect this is driven by missing insulin dose and nausea/ emesis. No localizing infectious symptoms, pancreatitis, ischemia. Will put him on low dose sliding scale with ACHS BG checks and reduce his basal insulin requirement given poor PO intake. Also checking an A1c. 2. Nausea/emesis: High suspicion for cannabis hyperemesis syndrome. Strongly advised cessation of marijauna however he does not seem amenable. Will manage with IV anti-emetics and IV normal saline. 3. Leukocytosis: No other SIRS criteria. Low suspicion for infectious process and more likely reactive from above. Monitor. 4. Hyperkalemia: K 5.9 on admit labs, resolved with IVF. 5. H/o alcohol use: Denies usage currently. Presentation not consistent with alcohol withdrawal. VTE ppx: low risk, SCDs Diet: diabetic Code: FCFT Disposition: admit for management of severe hyperglycemia and nausea with IV anti-emetics
[2018-04-03] MEDS: INSULIN LISPRO 100 UNIT/ML SC SCH (18:57)
[2018-04-03] MEDS ORDERED: INSULIN GLARGINE 100 UNITS/ML UNIT SC SCH (21:00)
[2018-04-04] MEDS ORDERED: LORazepam 2 MG/ML INJ IVP ONE ×3 (06:54→07:30)
[2018-04-04] MEDS: INSULIN LISPRO 100 UNIT/ML SC SCH ×2 (07:39→12:23)
[2018-04-04] MEDS ORDERED: INSULIN LISPRO 100 UNIT/ML SC ONE ×2 (08:44→13:30)
[2018-04-04] MEDS ORDERED: INSULIN GLARGINE 100 UNITS/ML UNIT SC SCH (09:00)
[2018-04-04] MEDS ORDERED: PNEUMOCOCCAL 0.5ML VACCINE VIAL IM ONE (13:24)
[2018-04-04 15:46] VITALS: BP 93/67
--- NOTE | 2018-04-04 16:00 | ASDISCHSUM ---
Discharge Information Plan Status:Home with No Needs Medically Cleared to Leave:04/04/2018 Discharge Date:04/04/2018 CM D/C Disposition:Home, Routine, Self-Care ADT D/C Disposition:Home, Routine, Self-Care Projected Discharge Date:04/04/2018 04:00 PM Transportation at D/C:Friend Discharge Delay Reason: Follow-Up Date:04/04/2018 04:00 PM Discharge Slot: Final Diagnosis:N/V Hyperglycemia Placement Information Patient Contact Information Contact Name:GIANCARLO Relationship:Other Address:[address] City:[place] Alternate Phone: State/Zip Code:[place] [address] Email: Financial Information Financial Class:Self-Pay Primary Plan Desc:[facility] Primary Plan Number:[id number] Secondary Plan Desc: Secondary Plan Number: Assessment Information BC CM Progress Note CM Note CM Note Notes: Pt presented to the ED for N/V. Pt admitted for hyperglycemia due to T1DM, intractable vomiting, and cannabis hyperemesis syndrome. Pt is followed by [facility] in [place] ([phone]) and he reports he has not had any issues getting medication refills, etc. Pt states he has been compliant with his insulin but has not been regularly checking his BGLs because he states "I'm lazy." Pt reports has still been using marijuana daily. Pt states he willing to discuss cannabis hyperemesis syndrome further and is open to better understanding the syndrome. Pt's girlfriend is involved but per pt "she is getting sick of me having to come here every few months and she says it is self-inflicted." When asked what he thought about her statement, he stated "I think there is some truth to it." Consider requesting Behavioral Health RN consult for discussion/education re: cannabis hyperemesis syndrome or if RN not available, at least provide the Mental Health "Patient Education and Resource" packet on Marijuana/Cyclic Vomiting and recommend pt follow up a Behavioral Health Specialist at [facility] if possible. Exact DC needs unknown, CM to follow. Date Signed: 04/03/2018 03:12 PM Electronically Signed By:Lisa Matos RN LACE LACE Length of stay for Answers: 1 day current admission Acuity / Level of Answers: No Care: Did the patient have an inpatient admission? Comorbidities - select Answers: Diabetes (uncontrolled or all that apply controlled) Other Notes: cannabis hyperemesis syndrome, cyclic vomiti ng # of Emergency department Answers: 1-2 visits in the last 6 months Score: 4 Date Signed: 04/04/2018 03:59 PM Electronically Signed By:Emma Hewitt LCSW Case Management Discharge Plan Note Case Management Discharge Discharge Order Complete? Answers: Yes Patient to Obtain Answers: Independently Medications Transportation Arranged Answers: Family/Friends Transport will Pick (Date 04/04/2018 04:00 PM & Time) Family Notified Answers: Yes Notes: Friend to transport Discharge Comments Notes: Patient has been discharged home and given educational material on Canabis hyperemesis by the RN. No other needs noted. Date Signed: 04/04/2018 03:58 PM Electronically Signed By:Emma Hewitt LCSW Intervention Information
--- NOTE | 2018-04-04 16:46 | PDDCSUM ---
Discharge Summary Discharge Summary: Date of Admission: 04/03/2018 Date of Discharge: 04/04/2018 Consultants: none Procedures: none Brief Hospital Course by Diagnosis: 1. Hyperglycemia with type 1 diabetes: Not in DKA but BG>500. Likely precipitated by nausea/vomiting. BG improved and symptoms controlled. Discharged with levemir pen 35u BID, novolog sliding scale. 2. Nausea, emesis: Suspect cannabis hyperemesis given relief with hot showers. Strongly advised cessation. Discharged with anti-emetics. 3. Leukocytosis: Reactive and resolved prior to discharge. Tests Pending at Discharge: A1c Items for Follow Up: 1. Monitor blood glucose and titrate insulin as needed 2. Continue to encourage MJ cessation Medications at Discharge: levemir pen 35u SQ BID, novolog sliding scale, zofran , phenergan, simethicone
== END 2018-04-04 16:10 | disposition home or self-care (01) ==
LOC: F3E 14:33
PROVIDERS: ADMIT Internal Medicine; ATTEND Internal Medicine
DX: E10.65 Type 1 diabetes mellitus with hyperglycemia (principal); G43.A1 Cyclical vomiting, in migraine, intractable; F12.90 Cannabis use, unspecified, uncomplicated
CPT/HCPCS: 90471; 93005; 96361; 96365; 96366; 96375; 99285; G0378; 82435-PO; 82565-PO; 82947-PO; 84132-PO; 84295-PO; 84484-PO; 84520-PO; 85014-PO; G0009; J1630; J1815; J2060; J2405; J2765

== ENCOUNTER 2018-05-19 10:51 | Emergency (ER) | payer OTHER ==
[2018-05-19] MEDS ORDERED: NS 1,000 ML IV ONE ×2 (10:56→11:04)
--- NOTE | 2018-05-19 10:57 | EDPHY ---
HPI/HX/ROS/PE/MDM Narrative: CHIEF COMPLAINT: Nausea and vomiting HPI: The patient is a 32 y/o male with a history of insulin-dependent diabetes and cannabis hyperemesis syndrome complaining of nausea and vomiting. He was seen in this emergency department on April 03 for similar symptoms and was admitted for hyperglycemia. He presents to the emergency department complaining of several days of vomiting which he describes as his typical hyperemesis syndrome. He states that he has missed at least 1 dose of insulin because he is not eating and cannot hold anything down. He states there are no features of this current episode that are different from his standard hyperemesis flares. No fever. He does describe diffuse abdominal cramping. REVIEW OF SYSTEMS: Aside from elements discussed in the HPI, a comprehensive 10 system review of systems is otherwise negative. PMH: Diabetes, cannabis hyperemesis syndrome SOCIAL HISTORY: Lives in [place], single, employed PHYSICAL EXAM: General: Patient is alert, in no acute distress. ENT: Eyes are normal to inspection. ENT inspection normal. Neck: Normal inspection. Full range of motion. Respiratory: No respiratory distress. Breath sounds normal bilaterally. Cardiovascular: Regular rate and rhythm. Strong peripheral pulses. Normal cap refill. Abdomen: The abdomen is nontender to palpation. There are no peritoneal signs. There are normal bowel sounds. Back: Normal to inspection. No tenderness to palpation. Skin: Normal color. No rash. Warm and dry. Extremities: Normal appearance. Full range of motion. Neuro: Oriented x3. Normal motor function. Normal sensory function. ED Course: 1126: Patient has a WBC of 19.79 and BGL of 343. We will continue to hydrate him with 2L IV NS. He states that the is still nauseated after 2.5mg IV Haldol; 12.5mg IV Phenergan administered. 1241: Patient's symptoms have still not improved; 1mg IV Ativan administered. 1350: Patient feels better, requesting additional dose of 1st medication given to him, which was haloperidol. Repeat 2.5mg IV ordered. MDM: This patient presents with exacerbation of cyclic vomiting. I see no evidence of appendicitis, DKA, pancreatitis, sepsis or bowel obstruction. At time of discharge, patient feels much better and is tolerating fluids by mouth. - Data Points Laboratory Results: Laboratory Results 05/19/18 11:05 05/19/18 11:05 05/19/18 18 18 11:17 11:05 11:05 WBC 19.79 10^3/uL H 10^3/uL (3.80-9.50) RBC 5.62 10^6/uL 10^6/uL (4.40-6.38) Hgb 17.1 g/dL g/dL (13.7-17.5) POC Hgb 18.4 gm/dL H gm/dL (13.7-17.5) Hct 48.9 % % (40.0-51.0) POC Hct 54 % H % (40-51) MCV 87.0 fL fL (81.5-99.8) MCH 30.4 pg pg (27.9-34.1) MCHC 35.0 g/dL g/dL (32.4-36.7) RDW 11.9 % % (11.5-15.2) Plt Count 362 10^3/uL 10^3/uL (150-400) MPV 9.8 fL fL (8.7-11.7) Neut % (Auto) 87.5 % H % (39.3-74.2) Lymph % (Auto) 5.6 % L % (15.0-45.0) Morrill % (Auto) 5.2 % % (4.5-13.0) Eos % (Auto) 0.1 % L % (0.6-7.6) Baso % (Auto) 0.4 % % (0.3-1.7) Nucleat RBC Rel Count 0.0 % % (0.0-0.2) Absolute Neuts (auto) 17.33 10^3/uL H 10^3/uL (1.70-6.50) Absolute Lymphs (auto) 1.10 10^3/uL 10^3/uL (1.00-3.00) Absolute Monos (auto) 1.03 10^3/uL H 10^3/uL (0.30-0.80) Absolute Eos (auto) 0.01 10^3/uL L 10^3/uL (0.03-0.40) Absolute Basos (auto) 0.08 10^3/uL 10^3/uL (0.02-0.10) Absolute Nucleated RBC 0.00 10^3/uL 10^3/uL (0-0.01) Immature Gran % 1.2 % H % (0.0-1.1) Immature Gran # 0.24 10^3/uL H 10^3/uL (0.00-0.10) POC Sodium 144 mEq/L mEq/L (135-145) Sodium 144 mEq/L mEq/L (135-145) POC Potassium 4.0 mEq/L mEq/L (3.3-5.0) Potassium 4.4 mEq/L mEq/L (3.3-5.0) POC Chloride 103 mEq/L mEq/L (97-110) Chloride 102 mEq/L mEq/L (97-110) Carbon Dioxide 27 mEq/l mEq/l (22-31) Anion Gap 15 mEq/L mEq/L (8-16) POC BUN 19 mg/dL mg/dL (7-23) BUN 18 mg/dL mg/dL (7-23) Creatinine 0.9 mg/dL mg/dL (0.7-1.3) POC Creatinine 1.0 mg/dL mg/dL (0.7-1.3) Estimated GFR > 60 Glucose 349 mg/dL H mg/dL (70-100) POC Glucose 343 mg/dL H mg/dL (70-100) Calcium 11.0 mg/dL H mg/dL (8.5-10.4) Phosphorus 2.6 mg/dL mg/dL (2.5-4.5) Lipase 59 IU/L IU/L (23-300) Medications Given: Discontinued Medications Haloperidol Lactate (Haldol Injection) 2.5 mg IVP EDNOW ONE Stop: 05/19/18 11:05 Last Admin: 05/19/18 11:16 Dose: 2.5 mg Haloperidol Lactate (Haldol Injection) 2.5 mg IVP EDNOW ONE Stop: 05/19/18 13:55 Last Admin: 05/19/18 14:06 Dose: 2.5 mg Sodium Chloride (Ns) 1,000 mls @ 0 mls/hr IV EDNOW ONE; Wide Open PRN Reason: Protocol Stop: 05/19/18 10:57 Last Admin: 05/19/18 11:19 Dose: 1,000 mls Sodium Chloride (Ns) 1,000 mls @ 0 mls/hr IV EDNOW ONE; Wide Open PRN Reason: Protocol Stop: 05/19/18 11:05 Last Admin: 05/19/18 11:19 Dose: 1,000 mls Lorazepam (Ativan Injection) 1 mg IVP EDNOW ONE Stop: 05/19/18 12:41 Last Admin: 05/19/18 12:51 Dose: 1 mg Promethazine HCl (Phenergan) 12.5 mg IVP ONCE ONE Stop: 05/19/18 11:38 Last Admin: 05/19/18 11:42 Dose: 12.5 mg Point of Care Test Results: Chemistry 05/19/18 11:17 POC Sodium 144 mEq/L mEq/L (135-145) POC Potassium 4.0 mEq/L mEq/L (3.3-5.0) POC Chloride 103 mEq/L mEq/L (97-110) POC BUN 19 mg/dL mg/dL (7-23) POC Creatinine 1.0 mg/dL mg/dL (0.7-1.3) POC Glucose 343 mg/dL H mg/dL (70-100) ISTAT H&H 05/19/18 11:17 POC Hgb 18.4 gm/dL H gm/dL (13.7-17.5) POC Hct 54 % H % (40-51) General Time Seen by Provider: 05/19/18 10:56 Initial Vital Signs: Initial Vital Signs Temperature (C) 36.7 C 05/19/18 10:53 Heart Rate 86 05/19/18 10:53 Respiratory Rate 18 05/19/18 10:53 Blood Pressure 111/103 H 05/19/18 10:53 O2 Sat (%) 99 05/19/18 10:53 O2 Delivery Mode Room Air O2 (L/minute) 2 Allergies/Adverse Reactions: No Known Allergies Allergy (Verified 05/19/18 10:52) Home Medications: Medication Instructions Recorded Insulin Aspart [novoLOG] 0 unit SC TIDMEAL #0 03/26/17 Insulin Detemir [Levemir Flextouch] 35 unit SQ BID #1 insuln.pen 04/04/18 Ondansetron Odt [Zofran Odt 4 mg 4 mg PO Q4HRS PRN #20 tab 04/04/18 (*)] Promethazine HCl [Phenergan 12.5mg 12.5 mg PO Q6HRS PRN #20 tablet 04/04/18 tab] Simethicone 125 mg PO Q6HRS PRN #20 capsule 04/04/18 Departure - Departure Disposition: Home, Routine, Self-Care Clinical Impression: Cannabis hyperemesis syndrome concurrent with and due to cannabis abuse Nausea & vomiting Qualifiers: Vomiting type: cyclical vomiting Vomiting Intractability: intractable Qualified Code(s): G43.A1 - Cyclical vomiting, intractable Condition: Good Instructions: Acute Nausea and Vomiting (ED) Additional Instructions: Follow-up with your primary doctor within 72 hours. Return to the Emergency Department for fever, chest pain, shortness of breath, increasing pain or other worsening of condition. Referrals: [facility],. [Clinic] - As per Instructions Aj Dennison MD [Medical Doctor] - As per Instructions Report Scribed for: Santino Gutiérrez Report Scribed by: Santa Zamora Date of Report: 05/19/18 Time of Report: 10:56 Physician Review and Approval Statement: Portions of this note were transcribed by an ED scribe. I personally performed the history, physical exam, and medical decision making; and confirm the accuracy of the information in the transcribed note.
[2018-05-19] MEDS ORDERED: HALOPERIDOL LACT 5 MG/ML INJ IVP ONE ×2 (11:04→13:54)
[2018-05-19 11:17] LABS: PLATELET COUNT 362 10^3/uL (150-400)
[2018-05-19] MEDS ORDERED: PROMETHAZINE HCL 25 MG/ML INJ ONE (11:36)
[2018-05-19] MEDS ORDERED: PROMETHAZINE HCL 25 MG/ML INJ IVP ONE (11:37)
[2018-05-19] MEDS ORDERED: LORazepam 2 MG/ML INJ IVP ONE (12:40)
[2018-05-19] MEDS ORDERED: MAG HYDROX/AL HYDROX/SIMETH 30 ML UDCUP ONE (17:23)
[2018-05-19] MEDS ORDERED: LIDOCAINE 2% VISCOUS 15 ML UDCUP ONE (17:23)
[2018-05-19] MEDS ORDERED: HYOSCYAMINE SULFATE 0.125 MG TAB ONE (17:29)
[2018-05-19] MEDS ORDERED: HYOSCYAMINE SULFATE 0.125 MG TAB PO ONE (17:33)
[2018-05-19] MEDS ORDERED: LIDOCAINE 2% VISCOUS 15 ML UDCUP PO ONE (17:33)
[2018-05-19] MEDS ORDERED: MAG HYDROX/AL HYDROX/SIMETH 30 ML UDCUP PO ONE (17:33)
[2018-05-19 18:10] VITALS: BP 124/88
== END 2018-05-19 18:12 | disposition home or self-care (01) ==
DX: F12.188 Cannabis abuse with other cannabis-induced disorder (principal); R11.2 Nausea with vomiting, unspecified; T38.3X6A Underdosing of insulin and oral hypoglycemic [antidiabetic] drugs, initial encounter; E86.9 Volume depletion, unspecified; E11.9 Type 2 diabetes mellitus without complications; Z79.4 Long term (current) use of insulin
CPT/HCPCS: 82435-PO; 82565-PO; 82947-PO; 84132-PO; 84295-PO; 84520-PO; 85014-PO; 96374; J1630; J2060; J2550

== ENCOUNTER 2018-05-21 06:13 | Emergency (ER) | payer OTHER ==
[2018-05-21] MEDS ORDERED: NS 1,000 ML IV ONE ×2 (07:37)
[2018-05-21] MEDS ORDERED: DIAZEPAM 5 MG/ML 1 ML SYR IVP ONE (07:38)
[2018-05-21] MEDS ORDERED: HALOPERIDOL LACT 5 MG/ML INJ IVP ONE (07:38)
--- NOTE | 2018-05-21 07:42 | EDPHY ---
H & P Time Seen by Provider: 05/21/18 07:32 HPI/ROS: HPI Cyclic vomiting syndrome. Vomiting. Seen here on Thursday. 32-year-old male by private vehicle. This patient has a history of insulin- dependent diabetes and cannabis hyperemesis syndrome. He was seen here on Thursday with the complaint of nausea and vomiting. He was treated with combination of Haldol Phenergan and Ativan. He felt better and after IV hydration with normal saline and reassuring blood work he was discharged to home. He presents back to the emergency department stating that he has been smoking marijuana again and has been up all night vomiting. He describes this as the same symptomatology associated with previous episodes of his cannabis hyperemesis syndrome. He describes having diffuse crampy abdominal discomfort. He denies any diarrhea. No bloody or melenic stool. ROS: Constitutional: No fever, no chills. No weakness. Eyes: No discharge. No changes in vision. ENT: No sore throat. No nasal congestion or rhinorrhea. Respiratory: No cough. No shortness of breath. Cardiac: No chest pain, no palpitations. Gastrointestinal: As above. Genitourinary: No hematuria. No dysuria or increased frequency with urination. Musculoskeletal: No back pain. No neck pain. No myalgias or arthralgias. Skin: No rashes. Neurological: No headache. No focal weakness or altered sensation. Past medical history: Diabetes, cannabis hyperemesis syndrome. Social history: Single, employed, lives in [place], denies alcohol, did nonsmoker. Smokes marijuana. Physical Exam: General Appearance: Alert, appears uncomfortable but not in distress. This patient is responding to questions appropriately and in full sentences. This patient appears well-hydrated and well-nourished. Eyes: Pupils equal and round no pallor or injection. No lid edema, erythema or injection. Respiratory: There are no retractions, lungs are clear to auscultation with good air movement bilaterally. Cardiovascular: Regular rate and rhythm. No murmur. Gastrointestinal: Abdomen is soft with mild and vague tenderness on palpation throughout, no masses, bowel sounds normal. No focal tenderness at McBurney's point. No Hernandez sign. Neurological: Motor sensory function is grossly intact. Cranial nerves are normal. Gait is normal. Skin: Warm and dry, no rashes. Musculoskeletal: Neck is supple and nontender. Extremities are symmetrical. All joints range without pain or impingement. Psychiatric: No agitation. No depression. Database: EKG: Imaging: Procedures: Emergency department course: Triage vital signs reviewed and are unremarkable. An IV was placed. He was placed on a monitor. He was started on IV normal saline with 1-2 L to be given over the next 1-2 hours. He was initially given 2.5 mg of IV Haldol and 5 mg of IV Valium. 7:50 a.m., the patient stated that he wanted to try capsaicin cream prior to medications as above. This will be done. 9:00 a.m., patient refuses blood work. He is feeling much better after treatment with capsaicin cream. He is requesting discharge. Repeat abdominal exam he is soft, nontender and nondistended. His vital signs have been reviewed and are normal. I discussed cessation of marijuana and cannabis product use. Follow-up and return to emergency department precautions reviewed. All of his questions were answered. He was discharged in good condition. Differential Diagnosis: The differential diagnosis on this patient includes but is not limited to cannabis hyperemesis syndrome. Bowel obstruction, DKA, appendicitis, cholecystitis, food-borne illness unlikely. This represents a partial list of diagnoses considered. These considerations are based on history, physical exam , past history, reassessment and diagnostic testing. Smoking Status: Former smoker Constitutional: Initial Vital Signs Temperature (C) 36.3 C 05/21/18 06:16 Heart Rate 91 05/21/18 06:16 Respiratory Rate 16 05/21/18 06:16 Blood Pressure 142/79 H 05/21/18 06:16 O2 Sat (%) 98 05/21/18 06:16 O2 Delivery Mode Room Air Allergies/Adverse Reactions: No Known Allergies Allergy (Verified 05/19/18 10:52) Home Medications: Medication Instructions Recorded Insulin Aspart [novoLOG] 0 unit SC TIDMEAL #0 03/26/17 Insulin Detemir [Levemir Flextouch] 35 unit SQ BID #1 insuln.pen 04/04/18 Ondansetron Odt [Zofran Odt 4 mg 4 mg PO Q4HRS PRN #20 tab 04/04/18 (*)] Promethazine HCl [Phenergan 12.5mg 12.5 mg PO Q6HRS PRN #20 tablet 07/29/18 tab] Simethicone 125 mg PO Q6HRS PRN #20 capsule 04/04/18 Medical Decision Making - Data Points Medications Given: Discontinued Medications Capsaicin (Capsacian 0.075%) 1 lakshmi TP EDNOW ONE Stop: 05/21/18 07:57 Last Admin: 05/21/18 08:18 Dose: 0.075 dose Diazepam (Valium) 5 mg IVP EDNOW ONE Stop: 05/21/18 07:39 Last Admin: 05/21/18 08:31 Dose: Not Given Haloperidol Lactate (Haldol Injection) 2.5 mg IVP EDNOW ONE Stop: 05/21/18 07:39 Last Admin: 05/21/18 08:31 Dose: Not Given Sodium Chloride (Ns) 1,000 mls @ 0 mls/hr IV EDNOW ONE; Wide Open PRN Reason: Protocol Stop: 05/21/18 07:38 Last Admin: 05/21/18 08:32 Dose: Not Given Sodium Chloride (Ns) 1,000 mls @ 0 mls/hr IV EDNOW ONE; Wide Open PRN Reason: Protocol Stop: 05/21/18 07:38 Last Admin: 05/21/18 08:33 Dose: Not Given Ondansetron HCl (Zofran Odt) 4 mg PO EDNOW ONE Stop: 05/21/18 08:20 Last Admin: 05/21/18 08:21 Dose: 4 mg Departure - Departure Disposition: Home, Routine, Self-Care Clinical Impression: Cannabis hyperemesis syndrome concurrent with and due to cannabis abuse Condition: Good Instructions: Acute Nausea and Vomiting (ED) Additional Instructions: Read and follow provided instructions. Follow-up with your primary care physician in 1-2 days for re-evaluation. Take your medication as prescribed. Return to the emergency department for worsening symptoms or other serious concerns. Referrals: NONE *PRIMARY CARE P,. [Primary Care Provider] - As per Instructions
[2018-05-21] MEDS ORDERED: CAPSACIAN 0.075% CREAM TP ONE (07:56)
[2018-05-21] MEDS ORDERED: ONDANSETRON DISINTEGRATING 4 MG TAB ONE (08:17)
[2018-05-21] MEDS ORDERED: ONDANSETRON DISINTEGRATING 4 MG TAB PO ONE (08:19)
[2018-05-21 09:29] VITALS: BP 132/56
== END 2018-05-21 09:28 | disposition home or self-care (01) ==
DX: F12.188 Cannabis abuse with other cannabis-induced disorder (principal); R11.10 Vomiting, unspecified; E10.10 Type 1 diabetes mellitus with ketoacidosis without coma; Z79.4 Long term (current) use of insulin

== ENCOUNTER 2018-05-23 12:48 | Inpatient (IN) | payer OTHER ==
--- NOTE | 2018-05-23 13:05 | EDPHY ---
H & P Stated Complaint: N/V, here Thursday for same Time Seen by Provider: 05/23/18 13:04 HPI/ROS: HPI: This is a 32-year-old male who presents with Chief Complaint: N/V, here Thursday for same Location: abdomen Quality: Nausea, vomiting Duration: 1 week Signs and Symptoms: no fever, + nausea, + vomiting, no hematemesis, no blood in stool, no abdominal bloating, no diarrhea, no back pain, no urinary symptoms, no testicular/groin pain, no indigestion, no chest pain, no shortness of breath Timing: Acute, intermittent episodes Severity: Moderate to severe Context: Patient has type 1 diabetes mellitus and marijuana hyperemesis syndrome presents for the 3rd time to the emergency room with complaints of uncontrollable nausea, vomiting x7 days. His last ER visit was on 05/21/2018 and 05/19/18. He refused labs on 05/21/18. Patient reports that Zofran and Promethazine do not work for him. Patient reports that all week his blood sugars have been running in the 300s. He has no primary care provider and has not ever had an EGD from Gastroenterology. He continues to smoke marijuana despite recommendations. Patient denies any abdominal pain only complains of abdominal cramping prior to vomiting episodes. Uses Novolog and Levemir. Modifying Factors: Comment: ROS: A comprehensive 10 system review of systems is otherwise negative aside from elements mentioned in the history of present illness. MEDICAL/SURGICAL/SOCIAL HISTORY: Medical history: type 1 DM, cyclic vomiting Surgical history: Denies Social history: Works at local [employer]. Has a girlfriend. Family history noncontributory. CONSTITUTIONAL: Extremely well appearing and talkative, adult white male, awake and alert, no obvious distress HEENT: Atraumatic and normocephalic, PERRL, EOMI. Nares patent; no rhinorrhea; no nasal mucosal edema. Tympanic membranes clear. Oropharynx clear, no exudate and moist pink mucosa. Airway patent. No lymphadenopathy. No meningismus. Cardiovascular: Normal S1/S2, tachycardia, regular rhythm, without murmur rub or gallop. PULMONARY/CHEST: Symmetrical and nontender. Clear to auscultation bilaterally. Good air movement. No accessory muscle usage. ABDOMEN: Soft, nondistended, nontender, no rebound, no guarding, no peritoneal signs, no masses or organomegaly. No CVAT. EXTREMITIES: 2/2 pulses, strength 5/5, no deformities, no clubbing, no cyanosis or edema. NEUROLOGICAL: no focal neuro deficits. GCS 15. SKIN: Warm and dry, no erythema. no rash. Good capillary refill. Source: Patient Exam Limitations: No limitations - Personal History Tetanus Vaccine Date: WITHIN 10 YRS - Medical/Surgical History Hx Asthma: No Hx Chronic Respiratory Disease: No Hx Diabetes: Yes Hx Cardiac Disease: No Hx Renal Disease: No Hx Cirrhosis: No Hx Alcoholism: No Hx HIV/AIDS: No Hx Splenectomy or Spleen Trauma: No Other PMH: type 1 DM, cyclic vomitting - Social History Smoking Status: Former smoker Constitutional: Initial Vital Signs Temperature (C) 36.7 C 05/23/18 12:49 Heart Rate 104 H 05/23/18 12:49 Respiratory Rate 20 05/23/18 12:49 Blood Pressure 143/72 H 05/23/18 12:49 O2 Sat (%) 100 05/23/18 12:49 O2 Delivery Mode Room Air Allergies/Adverse Reactions: No Known Allergies Allergy (Verified 05/23/18 12:48) Home Medications: Medication Instructions Recorded Insulin Aspart [novoLOG] 0 unit SC TIDMEAL #0 03/26/17 Ondansetron Odt [Zofran Odt 4 mg 4 mg PO Q4HRS PRN #20 tab 04/04/18 (*)] Capsacian 0.075% [Capsacian 0.075% 1 lakshmi TP QID PRN 05/23/18 (OTC)] Insulin Detemir [Levemir Flextouch] 40 unit SQ BID 05/23/18 Promethazine HCl [Phenergan 12.5mg 12.5 mg PO Q6HRS PRN 05/23/18 tab] Medical Decision Making ED Course/Re-evaluation: Vital signs reviewed and show mild tachycardia upon arrival. Labs, IV fluids, IV medications ordered 1330: Given 2 L normal saline, IV Haldol 5 mg, IV Ativan 1 mg, IV promethazine 12.5 mg Labs reviewed. Sodium 129, potassium 4.7, CO2 17, anion gap 25, glucose 474; consistent with ketoacidosis Spoke with the patient who agrees to be admitted to the hospital for further care. No further episodes of emesis since medications given at 1:30 p.m. Started on IV potassium supplementation and insulin drip 1430: ED decision to consult for admission. Spoke with hospitalist, Dr. Ross , who kindly agrees to admit patient for further care. 1445: Notified by nurse that Patient requesting GI cocktail; given per request. Venous pH 7.32 Urinalysis shows 2+ ketones, 3+ glucose BMP repeat at 1500 after 2 L of IV fluids. This patient was seen under the supervision of my secondary supervising physician. I evaluated care for this patient independently. Discussed this patient with Dr. Pérez. Differential Diagnosis: Abdominal pain including but not limited to appendicitis, cholecystitis, gastritis and urinary tract infection. - Data Points Laboratory Results: Laboratory Results 05/23/18 13:37 05/23/18 13:37 05/23/18 05/23/18 05/23/18 13:37 13:37 13:37 WBC RBC Hgb Hct MCV MCH MCHC RDW Plt Count MPV Neut % (Auto) Lymph % (Auto) Waldo % (Auto) Eos % (Auto) Baso % (Auto) Nucleat RBC Rel Count Absolute Neuts (auto) Absolute Lymphs (auto) Absolute Monos (auto) Absolute Eos (auto) Absolute Basos (auto) Absolute Nucleated RBC Immature Gran % Immature Gran # Turbidity Cancelled Sodium Cancelled 129 mEq/L L mEq/L (135-145) Potassium Cancelled 4.7 mEq/L mEq/L (3.3-5.0) Chloride Cancelled 87 mEq/L L mEq/L (97-110) Carbon Dioxide Cancelled 17 mEq/l L mEq/l (22-31) Anion Gap Cancelled 25 mEq/L H mEq/L (8-16) BUN Cancelled 22 mg/dL mg/dL (7-23) Creatinine Cancelled 0.8 mg/dL mg/dL (0.7-1.3) Estimated GFR Cancelled > 60 Glucose Cancelled 474 mg/dL H mg/dL (70-100) Calcium Cancelled 9.4 mg/dL mg/dL (8.5-10.4) Phosphorus 3.6 mg/dL mg/dL (2.5-4.5) Magnesium 1.9 mg/dL mg/dL (1.6-2.3) Total Bilirubin 2.0 mg/dL H mg/dL (0.1-1.4) Conjugated Bilirubin 0.5 mg/dL mg/dL (0.0-0.5) Unconjugated Bilirubin 1.5 mg/dL H mg/dL (0.0-1.1) AST 25 IU/L IU/L (17-59) ALT 41 IU/L IU/L (21-72) Alkaline Phosphatase 103 IU/L IU/L (38-126) Total Protein 6.9 g/dL g/dL (6.3-8.2) Albumin 4.5 g/dL g/dL (3.5-5.0) Lipase 99 IU/L IU/L (23-300) Beta-Hydroxybutyrate Cancelled Pending 05/23/18 13:37 WBC 9.66 10^3/uL H 10^3/uL (3.80-9.50) RBC 4.51 10^6/uL 10^6/uL (4.40-6.38) Hgb 13.7 g/dL g/dL (13.7-17.5) Hct 38.7 % L % (40.0-51.0) MCV 85.8 fL fL (81.5-99.8) MCH 30.4 pg pg (27.9-34.1) MCHC 35.4 g/dL g/dL (32.4-36.7) RDW 11.6 % % (11.5-15.2) Plt Count 275 10^3/uL 10^3/uL (150-400) MPV 9.7 fL fL (8.7-11.7) Neut % (Auto) 80.3 % H % (39.3-74.2) Lymph % (Auto) 11.7 % L % (15.0-45.0) Waldo % (Auto) 7.0 % % (4.5-13.0) Eos % (Auto) 0.0 % L % (0.6-7.6) Baso % (Auto) 0.4 % % (0.3-1.7) Nucleat RBC Rel Count 0.0 % % (0.0-0.2) Absolute Neuts (auto) 7.75 10^3/uL H 10^3/uL (1.70-6.50) Absolute Lymphs (auto) 1.13 10^3/uL 10^3/uL (1.00-3.00) Absolute Monos (auto) 0.68 10^3/uL 10^3/uL (0.30-0.80) Absolute Eos (auto) 0.00 10^3/uL L 10^3/uL (0.03-0.40) Absolute Basos (auto) 0.04 10^3/uL 10^3/uL (0.02-0.10) Absolute Nucleated RBC 0.00 10^3/uL 10^3/uL (0-0.01) Immature Gran % 0.6 % % (0.0-1.1) Immature Gran # 0.06 10^3/uL 10^3/uL (0.00-0.10) Turbidity Sodium Potassium Chloride Carbon Dioxide Anion Gap BUN Creatinine Estimated GFR Glucose Calcium Phosphorus Magnesium Total Bilirubin Conjugated Bilirubin Unconjugated Bilirubin AST ALT Alkaline Phosphatase Total Protein Albumin Lipase Beta-Hydroxybutyrate Medications Given: Olanzapine (Zyprexa Zydis) 5 mg PO ONCE ONE Stop: 05/23/18 14:52 Last Admin: 05/23/18 15:55 Dose: Not Given Discontinued Medications Al Hydroxide/Mg Hydroxide (Maalox Susp) 30 ml PO ONCE ONE Stop: 05/23/18 14:45 Last Admin: 05/23/18 14:54 Dose: 30 ml Haloperidol Lactate (Haldol Injection) 5 mg IVP EDNOW ONE Stop: 05/23/18 13:15 Last Admin: 05/23/18 13:31 Dose: 5 mg Hyoscyamine Sulfate (Levsin, Hyomax-Sl) 0.25 mg PO ONCE ONE Stop: 05/23/18 14:45 Last Admin: 05/23/18 14:54 Dose: 0.25 mg Sodium Chloride (Ns) 1,000 mls @ 0 mls/hr IV EDNOW ONE; Wide Open PRN Reason: Protocol Stop: 05/23/18 13:14 Last Admin: 05/23/18 13:30 Dose: 1,000 mls Sodium Chloride (Ns) 1,000 mls @ 0 mls/hr IV EDNOW ONE; Wide Open PRN Reason: Protocol Stop: 05/23/18 13:14 Last Admin: 05/23/18 14:09 Dose: 1,000 mls Insulin Human Regular 100 unit / Miscellaneous Medication 1 ea/ Sodium Chloride 101 mls @ 0 mls/hr IV EDNOW ONE; Per Protocol PRN Reason: Protocol Stop: 05/23/18 14:23 Last Admin: 05/23/18 15:21 Dose: 101 mls Potassium Chloride (Potassium Cl 10 Meq (Premix)) 100 mls @ 200 mls/hr IV Q30M BRE Stop: 05/23/18 15:29 Last Admin: 05/23/18 15:32 Dose: 100 mls Lidocaine (Lidocaine 2% Viscous) 15 ml PO ONCE ONE Stop: 05/23/18 14:45 Last Admin: 05/23/18 14:54 Dose: 15 ml Lorazepam (Ativan Injection) 1 mg IVP EDNOW ONE Stop: 05/23/18 13:15 Last Admin: 05/23/18 13:31 Dose: 1 mg Promethazine HCl (Phenergan) 12.5 mg IVP ONCE ONE Stop: 05/23/18 13:15 Last Admin: 05/23/18 13:31 Dose: 12.5 mg Departure - Departure Disposition: [facility] Acute Clinical Impression: Cannabinoid hyperemesis syndrome DKA (diabetic ketoacidoses) Qualifiers: Diabetes mellitus type: type 1 Diabetes mellitus complication detail: without coma Qualified Code(s): E10.10 - Type 1 diabetes mellitus with ketoacidosis without coma Condition: Fair
[2018-05-23] MEDS ORDERED: NS 1,000 ML IV ONE ×3 (13:13→19:00)
[2018-05-23] MEDS ORDERED: HALOPERIDOL LACT 5 MG/ML INJ IVP ONE (13:14)
[2018-05-23] MEDS ORDERED: LORazepam 2 MG/ML INJ IVP ONE (13:14)
[2018-05-23] MEDS ORDERED: PROMETHAZINE HCL 25 MG/ML INJ IVP ONE (13:14)
[2018-05-23 13:55] LABS: PLATELET COUNT 275 10^3/uL (150-400)
[2018-05-23] MEDS ORDERED: D10W 1,000 ML IV ONE (14:22)
[2018-05-23] MEDS ORDERED: D50W 25 GM/50 ML SYR IVP PRN (14:22)
[2018-05-23] MEDS ORDERED: INSULIN REGULAR HUMAN 100 UNIT, COSIGN. REQUIRED 1 EA in NS 100 ML IV ONE (14:22)
[2018-05-23] MEDS ORDERED: ACETAMINOPHEN 325 MG TAB PO PRN (14:31)
[2018-05-23] MEDS ORDERED: PROMETHAZINE HCL 25 MG TAB PO PRN (14:31)
[2018-05-23] MEDS ORDERED: ONDANSETRON 4 MG/2 ML VIAL IVP PRN (14:31)
[2018-05-23] MEDS ORDERED: PROMETHAZINE HCL 25 MG/ML INJ IVP PRN (14:31)
[2018-05-23] MEDS ORDERED: ONDANSETRON DISINTEGRATING 4 MG TAB PO PRN (14:31)
[2018-05-23] MEDS ORDERED: HYOSCYAMINE SULFATE 0.125 MG TAB PO ONE (14:44)
[2018-05-23] MEDS ORDERED: LIDOCAINE 2% VISCOUS 15 ML UDCUP PO ONE (14:44)
[2018-05-23] MEDS ORDERED: MAG HYDROX/AL HYDROX/SIMETH 30 ML UDCUP PO ONE (14:44)
[2018-05-23] MEDS ORDERED: LIDOCAINE 2% VISCOUS 15 ML UDCUP PO PRN (14:50)
[2018-05-23] MEDS ORDERED: OLANZapine DISINTEGR 5 MG TAB PO ONE (14:51)
[2018-05-23] MEDS ORDERED: OLANZapine DISINTEGR 5 MG TAB ONE (15:03)
--- NOTE | 2018-05-23 15:09 | PDGENHP ---
History and Physical - Chief Complaint Acute vomiting - History of Present Illness Primary care provider: Unclear HPI: 32-year-old male presenting with acute nausea and nonbloody emesis characterized as intractable with onset of symptoms 7 days ago, persistent duration thereafter. He presented to the emergency department on the for evaluation of this issue, notably had a white blood cell count 27003, hyperglycemia with a glucose of 350, and anion gap of 15. He received IV fluids and was subsequently discharged. He re-presented on the , refused labs, refused additional care. Today he is presenting with intractable vomiting, pain located in the mid epigastric area, intractable hiccups, and visible distress. His glucose is 474, anion gap 25, and his GI symptoms are intractable despite Haldol, Zofran, Phenergan. He currently reports that he is not taking any medications for gastroesophageal reflux disease and he has been unable to regulate his abdominal discomfort with hot showers. He denies any clearly identifiable precipitating factor 7 days ago and he denies any other infectious symptoms. He reports that his glucose level has been in the 300s during this illness, and he has been taking lower doses of his Levemir and NovoLog then prescribed, secondary to poor oral intake of solids and liquids. At baseline he is supposed to be taking Levemir 35 units twice daily. History Information - Allergies/Home Medication List Allergies/Adverse Reactions: No Known Allergies Allergy (Verified 05/23/18 12:48) I have personally reviewed and updated: family history, medical history, social history, surgical history - Past Medical History diabetes type 1 (With previous episodes of diabetic ketoacidosis), GERD (Not currently on any medications) Additional medical history: daily marijuana use, h/o alcohol abuse, type 1 diabetes - Surgical History Reports: no pertinent surgical hx - Family History Positive for: diabetes type II Additional family history: no family history of autoimmune diseases - Social History Smoking Status: Former smoker Alcohol Use: Sober Drug Use: Marijuana (Last use yesterday morning, normally uses marijuana several times daily) Additional social history: 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 Review of Systems Review of Systems: ROS: 10pt was reviewed & negative except for what was stated in HPI & below Constitutional: Reports: chills, malaise Cardiac: Reports: chest pain Gastrointestinal: Reports: vomitting, abdominal pain, nausea Physical Exam Physical Exam: Temp Pulse Resp BP Pulse Ox 36.7 C 82 16 118/61 95 05/23/18 12:49 05/23/18 14:00 05/23/18 14:00 05/23/18 14:00 05/23/18 14:00 Constitutional: uncomfortable, other (Visible distress), No not in pain ( Moderate) Eyes: PERRL, anicteric sclera, EOMI Ears, Nose, Mouth, Throat: moist mucous membranes, hearing normal, ears appear normal, no oral mucosal ulcers Cardiovascular: tachycardia, No systolic murmur, No irregularly irregular, No edema Respiratory: no respiratory distress, no rales or rhonchi, clear to auscultation Gastrointestinal: tenderness (Midepigastric), distension (Mild), other ( Hyperactive bowel sounds radiating up into the chest), No guarding Skin: other (Scar over right knee, no visible wounds) Neurologic: AAOx3, No facial droop Psychiatric: not encephalopathic, thought process linear, anxious, No agitated Lymph, Heme, Immunologic: other (No palpable tender submandibular or anterior cervical lymph nodes) Lab Data & Imaging Review 05/23/18 13:37 05/23/18 13:37 WBC 9.66 10^3/uL (3.80-9.50) H 05/23/18 13:37 RBC 4.51 10^6/uL (4.40-6.38) 05/23/18 13:37 Hgb 13.7 g/dL (13.7-17.5) 05/23/18 13:37 Hct 38.7 % (40.0-51.0) L 05/23/18 13:37 MCV 85.8 fL (81.5-99.8) 05/23/18 13:37 MCH 30.4 pg (27.9-34.1) 05/23/18 13:37 MCHC 35.4 g/dL (32.4-36.7) 05/23/18 13:37 RDW 11.6 % (11.5-15.2) 05/23/18 13:37 Plt Count 275 10^3/uL (150-400) 05/23/18 13:37 MPV 9.7 fL (8.7-11.7) 05/23/18 13:37 Neut % (Auto) 80.3 % (39.3-74.2) H 05/23/18 13:37 Lymph % (Auto) 11.7 % (15.0-45.0) L 05/23/18 13:37 [place] % (Auto) 7.0 % (4.5-13.0) 05/23/18 13:37 Eos % (Auto) 0.0 % (0.6-7.6) L 05/23/18 13:37 Baso % (Auto) 0.4 % (0.3-1.7) 05/23/18 13:37 Nucleat RBC Rel Count 0.0 % (0.0-0.2) 05/23/18 13:37 Absolute Neuts (auto) 7.75 10^3/uL (1.70-6.50) H 05/23/18 13:37 Absolute Lymphs (auto) 1.13 10^3/uL (1.00-3.00) 05/23/18 13:37 Absolute Monos (auto) 0.68 10^3/uL (0.30-0.80) 05/23/18 13:37 Absolute Eos (auto) 0.00 10^3/uL (0.03-0.40) L 05/23/18 13:37 Absolute Basos (auto) 0.04 10^3/uL (0.02-0.10) 05/23/18 13:37 Absolute Nucleated RBC 0.00 10^3/uL (0-0.01) 05/23/18 13:37 Immature Gran % 0.6 % (0.0-1.1) 05/23/18 13:37 Immature Gran # 0.06 10^3/uL (0.00-0.10) 05/23/18 13:37 Turbidity Cancelled 05/23/18 13:37 Sodium 129 mEq/L (135-145) L 05/23/18 13:37 Potassium 4.7 mEq/L (3.3-5.0) 05/23/18 13:37 Chloride 87 mEq/L (97-110) L 05/23/18 13:37 Carbon Dioxide 17 mEq/l (22-31) L 05/23/18 13:37 Anion Gap 25 mEq/L (8-16) H 05/23/18 13:37 BUN 22 mg/dL (7-23) 05/23/18 13:37 Creatinine 0.8 mg/dL (0.7-1.3) 05/23/18 13:37 Estimated GFR > 60 05/23/18 13:37 Glucose 474 mg/dL (70-100) H 05/23/18 13:37 Calcium 9.4 mg/dL (8.5-10.4) 05/23/18 13:37 Phosphorus 3.6 mg/dL (2.5-4.5) 05/23/18 13:37 Magnesium 1.9 mg/dL (1.6-2.3) 05/23/18 13:37 Total Bilirubin 2.0 mg/dL (0.1-1.4) H 05/23/18 13:37 Conjugated Bilirubin 0.5 mg/dL (0.0-0.5) 05/23/18 13:37 Unconjugated Bilirubin 1.5 mg/dL (0.0-1.1) H 05/23/18 13:37 AST 25 IU/L (17-59) 05/23/18 13:37 ALT 41 IU/L (21-72) 05/23/18 13:37 Alkaline Phosphatase 103 IU/L (38-126) 05/23/18 13:37 Total Protein 6.9 g/dL (6.3-8.2) 05/23/18 13:37 Albumin 4.5 g/dL (3.5-5.0) 05/23/18 13:37 Lipase 99 IU/L (23-300) 05/23/18 13:37 Beta-Hydroxybutyrate Cancelled 05/23/18 13:37 Assessment & Plan Assessment: 32-year-old male presents with acute diabetic ketoacidosis Plan: 1. DKA. Acute, unclear precipitant, evidenced by anion gap of 25, serum bicarbonate of 17, glucose 474 with profound GI symptoms -discussed with Moriah Cavazos in the emergency department, she reports the patient is receiving his 2nd L normal saline right now and will have a repeat metabolic profile thereafter -initiate on insulin drip placed on DKA protocol admit to ICU, hold on insulin sliding scale and Levemir until patient's anion gap closed -check beta hydroxybutyrate level, repeat labs based on protocol -check respiratory viral panel to determine whether there is any clear precipitant -treat GI symptoms supportively with Zofran, Phenergan, 1 dose of Zyprexa right now given his concomitant overlay of cyclic vomiting syndrome -treat suspected reflux esophagitis (secondary to persistent vomiting) with IV ppi, IV H2 danny, as needed GI cocktail and viscous lidocaine, suspect that he will require ongoing use of oral H2 danny and oral proton pump inhibitor following discharge -can add Carafate if ongoing chest discomfort despite interventions above -will check chest and abdominal plain film to ensure no small-bowel obstruction or esophageal perforation given his unusually hyperactive bowel sounds radiating caudally -patient remains critically ill with high risk of worsening morbidity and/or mortality secondary to this issue requiring ICU level care 2. Acute metabolic acidosis. Secondary to ketoacidosis as above, monitor serum bicarbonate level 3. Hyponatremia. Acute, most likely an element of pseudohyponatremia secondary to dilutional effect from hyperglycemia w/ concomitant hypovolemia from DKA, monitor with volume resuscitation as above 4. Chronic cannabinoid hyperemesis syndrome. Documented in numerous provider notes, most recently in DC summary by Dr. Joce Smith, recommended cessation + phenergan/simethicone/zofran -patient reports he's trying to stop THC use to gauge effect Diet. NPO with sips and chips Prophylaxis. High risk patient, Lovenox for Code. Full Disposition. Anticipated discharge uncertain this time, anticipated length stay greater than 48 hr for reasonable medical necessity including acute diabetic ketoacidosis requiring ICU level care. 40 min of critical care time spent with this patient, at bedside, coordinating care with emergency department provider and nursing staff, specifically addressing his acute DKA.
[2018-05-23] MEDS: POTASSIUM Cl (KCl) 100 ML IV SCH ×4 (15:32→23:11)
--- NOTE | 2018-05-23 17:02 | ASMTCMCOM ---
CM Note CM Note Notes: Pt presented to the ED with acute abdominal pain and intractable N/V x 7days. Pt was seen in the ED on 05/19 and 05/21 for same reasons. Pt admitted for DKA, hyponatremia. Pt has a history Type 1 DM and DKA. Pt also has a history of cannabis hyperemesis syndrome and states he has been trying to decrease his daily marijuana use (last use yesterday). Please refer to CM Reports from pts recent admission 04/03 & 04/04/18 for additional information re:pt being provided information and education on cannabis hyperemesis syndrome. Pt was seen in the ED 9x in 2017 (admitted 6x); and this is the patient's 4th ED visit and 2nd admission in the past 2 months. Pt states he has been following up with his PCP Kathrine Thakkar NP at [facility] in [place] ([phone]) and that he recently decreased his Levemir and Novolog due to his decreased oral intake r/t his N/V. Pt states his girlfriend is his only local support as his family lives in the [facility]. Pt is originally from [place]. Exact DC needs TBD but anticipate pt will stabilize and DC home independent w/girlfriend. Consider requesting Behavioral Health RN consult for further discussion/education re:cannabis hyperemesis syndrome. Consider contacting pt's PCP and requesting that a Behavioral Health Provider meets w/pt at next follow-up appt to discuss his marijuana use. CM to follow. Date Signed: 05/23/2018 05:02 PM Electronically Signed By:Lisa Matos RN
--- NOTE | 2018-05-23 17:51 | PDMN ---
Medical Necessity Medical necessity: Pt meets inpt criteria per MD order and MCG M-130, Diabetes. 32 y/o admitted w/acute diabetic ketoacidosis, evidenced by anion gap 25, serum bicarb 17, glucose 474, w/profound GI symptoms, acute metabolic acidosis sec to ketoacidosis, acute hyponatremia Na 130. IVF, insulin gtt, IV ppi, IV antiemetics, NPO, ICU. Anticipate>2MN for ongoing med nec monitoring/treatment of critically ill pt.
[2018-05-23] MEDS: FAMOTIDINE 20 MG/NACL 50 ML IV SCH ×2 (18:23→22:28)
[2018-05-23] MEDS: PANTOPRAZOLE SODIUM 40 MG VIAL IVP SCH (18:23)
[2018-05-23] MEDS ORDERED: INSULIN REGULAR HUMAN 100 UNIT in NS 100 ML IV SCH (19:30)
[2018-05-23] MEDS ORDERED: RN:ENTER POTASSIUM ICU PROTOCOL ON WORKLIST MISC ONE (19:30)
[2018-05-23] MEDS ORDERED: D10W 1,000 ML IV SCH (19:30)
[2018-05-23] MEDS ORDERED: NS 1,000 ML IV SCH (19:30)
[2018-05-23] MEDS: D50W 25 GM/50 ML SYR IVP PRN ×2 (21:32→23:11)
[2018-05-23] MEDS ORDERED: PROTOCOL POTASSIUM 1 DOSE MISC PRN ×3 (22:05→22:09)
[2018-05-23] MEDS ORDERED: D50W 25 GM/50 ML VIAL IVP PRN (22:53)
[2018-05-23] MEDS ORDERED: NS W/ 20 KCl/L 1,000 ML IV SCH (23:00)
[2018-05-23] MEDS: INSULIN GLARGINE 100 UNITS/ML UNIT SC SCH (23:11)
[2018-05-24] MEDS: INSULIN REGULAR HUMAN 100 UNIT/ML UNIT SC SCH ×4 (00:16→10:59)
[2018-05-24] MEDS: MAG HYDROX/AL HYDROX/SIMETH 30 ML UDCUP PO PRN ×2 (01:06→07:58)
[2018-05-24] MEDS: LORazepam 0.5 MG TAB PO PRN ×2 (02:17→09:31)
[2018-05-24] MEDS ORDERED: PROCHLORPERAZINE MALEATE 10 MG TAB PO ONE (03:10)
[2018-05-24] MEDS: CAPSACIAN 0.075% CREAM TP PRN ×2 (03:16→09:33)
[2018-05-24] MEDS ORDERED: HALOPERIDOL 5 MG TAB PO ONE (05:22)
[2018-05-24 05:42] LABS: PLATELET COUNT 230 10^3/uL (150-400)
[2018-05-24] MEDS ORDERED: ENOXAPARIN 40 MG/0.4 ML SYR SC SCH (09:00)
[2018-05-24] MEDS: PANTOPRAZOLE SODIUM 40 MG VIAL IVP SCH (09:01)
[2018-05-24] MEDS: FAMOTIDINE 20 MG/NACL 50 ML IV SCH (09:01)
[2018-05-24] MEDS: INSULIN GLARGINE 100 UNITS/ML UNIT SC SCH (09:08)
--- NOTE | 2018-05-24 09:41 | ASMTCMCOM ---
CM Note CM Note Notes: Patient has been seen in ED 05/19 and 05/21 with similar dx. Patient given educational res and tx on THC cyclical vomiting. Date Signed: 05/24/2018 09:41 AM Electronically Signed By:Emma Hewitt LCSW
[2018-05-24 10:16] VITALS: BP 144/80
--- NOTE | 2018-05-24 11:11 | HOSPPROG ---
Hospitalist Progress Note Assessment/Plan: 32 yo M w hyperemesis, likey 2/2 cannabis as well as possible DKA home today see dc summary > 30 minutes improvement more rapid than anticipated Subjective: gap closed. eating Objective: Vital Signs Temp Pulse Resp BP Pulse Ox 36.7 C 77 18 144/80 H 95 05/24/18 08:00 05/24/18 10:00 05/24/18 10:00 05/24/18 10:00 05/24/18 10:00 Microbiology 05/23/18 15:41 Respiratory Panel (PCR) - Final Nasal, Sinus - [place] Viral Transport No Organism Detected Laboratory Results 05/24/18 05:25 05/24/18 05:25 05/23/18 05/24/18 05/25/18 05:59 05:59 05:59 Intake Total 4934 Output Total 3575 Balance 1359 - Physical Exam Constitutional: no apparent distress, appears nourished Eyes: PERRL, anicteric sclera Ears, Nose, Mouth, Throat: moist mucous membranes, hearing normal Cardiovascular: regular rate and rhythym, no murmur, rub, or gallop Respiratory: no respiratory distress, no rales or rhonchi Gastrointestinal: normoactive bowel sounds, soft, non-tender abdomen Genitourinary: no bladder fullness, No saunders in urethra Skin: warm, normal color Musculoskeletal: full muscle strength Neurologic: AAOx3 ICD10 Worksheet Patient Problems: Problems Problem Status Onset Cannabinoid hyperemesis syndrome Acute DKA (diabetic ketoacidosis) Acute Cannabis hyperemesis syndrome concurrent with and due to cannabis abuse Acute Dehydration Acute Hyperglycemia due to type 1 diabetes mellitus Acute Intractable vomiting Acute Abdominal pain Chronic Diabetes Chronic Nausea & vomiting Chronic
--- NOTE | 2018-05-24 11:46 | GDS ---
DISCHARGE DIAGNOSES: 1. Nausea and vomiting, suspected cannabis hyperemesis syndrome. 2. Possible diabetic ketoacidosis, mild. 3. Hypertension. 4. Type 1 diabetes. Last A1c 8.5. HOSPITAL COURSE: Please see admission history and physical by Dr. Dayo Ross. The patient presente d with nausea, vomiting been going on for a week. He acknowledges marijuana use and ongoing during t his time, and there has been concern for cannabis emesis in the past. The patient received IV insulin overnight with closure of his gap. His serum bicarb was never quite low enough to consider it serious DKA. His serum bicarb was 17 on presentation and venous pH was 7.3 2. The patient was tolerating orals and anxious for discharge. He was provided with Phenergan supposito geovany and Phenergan orally. He has insulin and his other prescriptions available at home. He acknowl edges the role of marijuana and is anxious to quit. He has quit drinking alcohol in the past as well . Notably, the rate of improvement was greater than anticipated. /[id number]/MODL
== END 2018-05-24 11:37 | disposition home or self-care (01) | DRG 639 ==
LOC: F2N 16:45
PROVIDERS: ADMIT Internal Medicine; ATTEND Internal Medicine
DX: E10.10 Type 1 diabetes mellitus with ketoacidosis without coma (principal); F12.188 Cannabis abuse with other cannabis-induced disorder; R11.10 Vomiting, unspecified; I10 Essential (primary) hypertension; K21.9 Gastro-esophageal reflux disease without esophagitis; Z79.4 Long term (current) use of insulin
CPT/HCPCS: 82435-PO; 82565-PO; 82947-PO; 83605-PO; 84132-PO; 84295-PO; 84520-PO; 85014-PO; 96374; J1630; J1650; J1815; J2060; J2550; J3480

== ENCOUNTER 2018-05-28 20:58 | Observation (INO) | payer OTHER ==
--- NOTE | 2018-05-28 21:16 | EDPHY ---
H & P Time Seen by Provider: 05/28/18 21:16 HPI/ROS: CHIEF COMPLAINT: Nausea and vomiting HISTORY OF PRESENT ILLNESS: History of diabetes was recently hospitalized 05/23- for similar symptoms. He says he has been sick for the last week with continued nausea and vomiting which he says is severe. It is associated with burping and belching and increasing anxiety. Symptoms have not been helped in the past by Zofran or phenothiazines. Nothing is helping at home and he says he can't keep anything down. He feels dehydrated. REVIEW OF SYSTEMS: Eye: no change in vision ENT: no sore throat Cardiac: no chest pain or syncope Pulmonary: no cough or SOB Abdomen: HPI Musculoskeletal: no back pain Skin: no rash Neuro: no headache Constitutional: no fever : no urinary symptoms A comprehensive 10 point review of systems is otherwise negative aside from elements mentioned in the history of present illness. PAST MEDICAL HISTORY: Diabetes and hypertension Social history: Used marijuana this morning, here with his girlfriend General Appearance: Alert and conversant, cooperative. Eyes: No scleral icterus. ENT, Mouth: Slightly dry mucous membranes. Respiratory: Normal respiratory effort, breath sounds equal, lungs are clear to auscultation. Cardiovascular: Regular rate and rhythm. Gastrointestinal: Abdomen is soft and non tender. Neurological: Alert, face symmetric, normal motor and sensory in extremities. Skin: Warm and dry, no rashes. Musculoskeletal: No peripheral edema. Psychiatric: Moderately anxious. Emergency Department course/MDM: Haldol 2.5, Benadryl 25, Ativan 1 mg IV. GI cocktail per patient's request. Normal saline hydration, 1st glucose 459 by i-STAT. I-STAT potassium is 4.6. Said he had some streaks of blood in the most recent episode of vomiting, sounds more like a Jeana Damian tear than actual upper gastrointestinal bleed. 2154: Insulin drip and 3rd L IV normal saline ordered. No additional potassium yet. Admission hospitalist service for DKA. k 4.6 and glucose 426 at 2245. Smoking Status: Former smoker Constitutional: Initial Vital Signs Temperature (C) 36.8 C 05/28/18 21:01 Heart Rate 93 05/28/18 21:01 Respiratory Rate 20 05/28/18 21:01 Blood Pressure 124/83 H 05/28/18 21:01 O2 Sat (%) 99 09/21/18 21:01 O2 Delivery Mode Room Air Allergies/Adverse Reactions: No Known Allergies Allergy (Verified 05/28/18 21:01) Home Medications: Medication Instructions Recorded Insulin Aspart [novoLOG] 0 unit SC TIDMEAL #0 03/26/17 Ondansetron Odt [Zofran Odt 4 mg 4 mg PO Q4HRS PRN #20 tab 04/04/18 (*)] Capsacian 0.075% 1 lakshmi TP QID PRN 05/23/18 Insulin Detemir [Levemir Flextouch] 40 unit SQ BID 05/23/18 Prochlorperazine Maleate 25 mg [place] DAILY PRN #2 suppr 05/24/18 [Compazine 25mg supp (*)] Prochlorperazine Maleate 25 mg [place] DAILY PRN #2 suppr 05/24/18 [Compazine 25mg supp (*)] Promethazine HCl [Phenergan 12.5mg 12.5 mg PO Q6HRS PRN #30 tablet 05/24/18 tab] Promethazine HCl [Phenergan 25mg 12.5 - 25 mg PO Q6HRS PRN #30 tab 05/24/18 (*)] Medical Decision Making - Diagnostics EKG Interpretation: 12-lead EKG interpreted by me; official reading is in computer system. My interpretation is sinus rhythm with APC and early repolarization rate 86. Differential Diagnosis: Differential diagnosis considered for nausea and vomiting including but not limited to gastroenteritis, gastritis, appendicitis, and medication side effect. Consult/Admit Bed Type: [place] [id number] Critical Care Time: Critical care time spent by me, Dr. Hopkisn, exclusively with the care of this patient was 35 minutes, exclusive of PA or [employer] time and exclusive of separate procedures. The organ system at risk was metabolic and I ordered IV fluids, antiemetics, insulin drip, admission to ICU to stabilize the patient and prevent worsening of the patient's condition. - Data Points Laboratory Results: Laboratory Results 05/28/18 21:25 05/28/18 21:25 05/28/18 05/28/18 05/28/18 21:29 21:25 21:25 WBC 15.94 10^3/uL H 10^3/uL (3.80-9.50) RBC 5.20 10^6/uL 10^6/uL (4.40-6.38) Hgb 15.7 g/dL g/dL (13.7-17.5) POC Hgb 16.7 gm/dL gm/dL (13.7-17.5) Hct 45.5 % % (40.0-51.0) POC Hct 49 % % (40-51) MCV 87.5 fL fL (81.5-99.8) MCH 30.2 pg pg (27.9-34.1) MCHC 34.5 g/dL g/dL (32.4-36.7) RDW 11.9 % % (11.5-15.2) Plt Count 406 10^3/uL H 10^3/uL (150-400) MPV 10.0 fL fL (8.7-11.7) Neut % (Auto) Pending Lymph % (Auto) Pending [place] % (Auto) Pending Eos % (Auto) Pending Baso % (Auto) Pending Nucleat RBC Rel Count Pending Absolute Neuts (auto) Pending Absolute Lymphs (auto) Pending Absolute Monos (auto) Pending Absolute Eos (auto) Pending Absolute Basos (auto) Pending Absolute Nucleated RBC Pending Immature Gran % Pending Immature Gran # Pending Platelet Estimate Pending Puncture Site Patient Temperature VBG pH VBG HCO3 VBG Total CO2 VBG O2 Saturation VBG Base Excess Mixed VBG pCO2 Mixed VBG pO2 POC Sodium 127 mEq/L L mEq/L (135-145) Sodium 129 mEq/L L mEq/L (135-145) POC Potassium 4.6 mEq/L mEq/L (3.3-5.0) Potassium 5.1 mEq/L H mEq/L (3.3-5.0) POC Chloride 91 mEq/L L mEq/L (97-110) Chloride 86 mEq/L L mEq/L (97-110) Carbon Dioxide 14 mEq/l L mEq/l (22-31) Anion Gap 29 mEq/L H mEq/L (8-16) POC BUN 19 mg/dL mg/dL (7-23) BUN 18 mg/dL mg/dL (7-23) Creatinine 1.0 mg/dL mg/dL (0.7-1.3) POC Creatinine 0.9 mg/dL mg/dL (0.7-1.3) Estimated GFR > 60 Glucose 465 mg/dL H mg/dL (70-100) POC Glucose 459 mg/dL H mg/dL (70-100) Calcium 9.8 mg/dL mg/dL (8.5-10.4) Beta-Hydroxybutyrate Pending 05/28/18 21:25 WBC RBC Hgb POC Hgb Hct POC Hct MCV MCH MCHC RDW Plt Count MPV Neut % (Auto) Lymph % (Auto) [place] % (Auto) Eos % (Auto) Baso % (Auto) Nucleat RBC Rel Count Absolute Neuts (auto) Absolute Lymphs (auto) Absolute Monos (auto) Absolute Eos (auto) Absolute Basos (auto) Absolute Nucleated RBC Immature Gran % Immature Gran # Platelet Estimate Puncture Site VENOUS Patient Temperature 37.0 DEGREES DEGREES VBG pH 7.29 L (7.31-7.42) VBG HCO3 15 mEQ/L L mEQ/L (22-26) VBG Total CO2 16 mEq/L L mEq/L (21-27) VBG O2 Saturation 71 % % (65-75) VBG Base Excess -10.6 mEq/L L mEq/L (-2.5-2.5) Mixed VBG pCO2 32 mmHg L mmHg (40-44) Mixed VBG pO2 43 mmHG H mmHG (35-40) POC Sodium Sodium POC Potassium Potassium POC Chloride Chloride Carbon Dioxide Anion Gap POC BUN BUN Creatinine POC Creatinine Estimated GFR Glucose POC Glucose Calcium Beta-Hydroxybutyrate Medications Given: Sodium Chloride (Ns) 1,000 mls @ 1,000 mls/hr IV EDNOW ONE PRN Reason: Protocol Stop: 05/28/18 23:23 Last Admin: 05/28/18 22:37 Dose: 1,000 mls Discontinued Medications Al Hydroxide/Mg Hydroxide (Maalox Susp) 30 ml PO ONCE ONE Stop: 05/28/18 21:27 Last Admin: 05/28/18 21:31 Dose: 30 ml Diphenhydramine HCl (Benadryl Injection) 25 mg IVP EDNOW ONE Stop: 05/28/18 21:25 Last Admin: 05/28/18 21:31 Dose: 25 mg Haloperidol Lactate (Haldol Injection) 2.5 mg IVP EDNOW ONE Stop: 05/28/18 21:25 Last Admin: 05/28/18 21:31 Dose: 2.5 mg Hyoscyamine Sulfate (Levsin, Hyomax-Sl) 0.25 mg PO ONCE ONE Stop: 05/28/18 21:27 Last Admin: 05/28/18 21:30 Dose: 0.25 mg Sodium Chloride (Ns) 1,000 mls @ 1,000 mls/hr IV EDNOW ONE PRN Reason: Protocol Stop: 05/28/18 22:23 Last Admin: 05/28/18 21:32 Dose: 1,000 mls Sodium Chloride (Ns) 1,000 mls @ 1,000 mls/hr IV EDNOW ONE PRN Reason: Protocol Stop: 05/28/18 22:53 Last Admin: 05/28/18 22:09 Dose: Not Given Insulin Human Regular 100 unit / Miscellaneous Medication 1 ea/ Sodium Chloride 101 mls @ 0 mls/hr IV EDNOW ONE; Per Protocol PRN Reason: Protocol Stop: 05/28/18 21:55 Last Admin: 05/28/18 22:15 Dose: 101 mls Lidocaine (Lidocaine 2% Viscous) 15 ml PO ONCE ONE Stop: 05/28/18 21:27 Last Admin: 05/28/18 21:31 Dose: 15 ml Lorazepam (Ativan Injection) 1 mg IVP EDNOW ONE Stop: 05/28/18 21:27 Last Admin: 05/28/18 21:31 Dose: 1 mg Point of Care Test Results: Chemistry 05/28/18 21:29 POC Sodium 127 mEq/L L mEq/L (135-145) POC Potassium 4.6 mEq/L mEq/L (3.3-5.0) POC Chloride 91 mEq/L L mEq/L (97-110) POC BUN 19 mg/dL mg/dL (7-23) POC Creatinine 0.9 mg/dL mg/dL (0.7-1.3) POC Glucose 459 mg/dL H mg/dL (70-100) ISTAT H&H 05/28/18 21:29 POC Hgb 16.7 gm/dL gm/dL (13.7-17.5) POC Hct 49 % % (40-51) Departure - Departure Disposition: [facility] Inpatient Acute Clinical Impression: DKA (diabetic ketoacidosis) Qualifiers: Diabetes mellitus type: type 1 Diabetes mellitus complication detail: without coma Qualified Code(s): E10.10 - Type 1 diabetes mellitus with ketoacidosis without coma Condition: Serious
[2018-05-28] MEDS ORDERED: NS 1,000 ML IV ONE ×3 (21:24→22:24)
[2018-05-28] MEDS ORDERED: HALOPERIDOL LACT 5 MG/ML INJ IVP ONE (21:24)
[2018-05-28] MEDS ORDERED: HYOSCYAMINE SULFATE 0.125 MG TAB PO ONE (21:26)
[2018-05-28] MEDS ORDERED: LORazepam 2 MG/ML INJ IVP ONE (21:26)
[2018-05-28] MEDS ORDERED: LIDOCAINE 2% VISCOUS 15 ML UDCUP PO ONE (21:26)
[2018-05-28] MEDS ORDERED: MAG HYDROX/AL HYDROX/SIMETH 30 ML UDCUP PO ONE (21:26)
[2018-05-28] MEDS ORDERED: INSULIN REGULAR HUMAN 100 UNIT, COSIGN. REQUIRED 1 EA in NS 100 ML IV ONE (21:54)
--- NOTE | 2018-05-28 21:59 | CPEKG ---
Test Reason : OPEN Blood Pressure : / mmHG Vent. Rate : 086 BPM Atrial Rate : 087 BPM P-R Int : 130 ms QRS Dur : 092 ms QT Int : 359 ms P-R-T Axes : 068 083 057 degrees QTc Int : 430 ms Sinus rhythm Atrial premature complex ST elev, probable normal early repol pattern Confirmed by Jamaal Hopkins ([id number]) on 05/28/2018 9:58:43 PM Referred By: Confirmed By:Jamaal Hopkins
[2018-05-28 22:06] LABS: PLATELET COUNT 406 10^3/uL (150-400)
[2018-05-28] MEDS ORDERED: ACETAMINOPHEN 325 MG TAB PO PRN (22:37)
[2018-05-28] MEDS ORDERED: ONDANSETRON DISINTEGRATING 4 MG TAB PO PRN (22:37)
[2018-05-28] MEDS ORDERED: ONDANSETRON 4 MG/2 ML VIAL IVP PRN (22:37)
[2018-05-28] MEDS ORDERED: PROMETHAZINE HCL 25 MG/ML INJ IVP PRN (22:41)
--- NOTE | 2018-05-28 23:36 | PDGENHP ---
History and Physical - Chief Complaint Nausea, vomiting - History of Present Illness 32 yo M w/ IDDM and CHS presents with nausea and vomiting. Patient has been symptomatic for about 10 days. Over that period he has been to [facility] 4 separate times, including an admission from 05/23-05/24. He presents today with laboratory evidence of DKA as well. He continues to have severe nausea, vomiting, and minimal ability to tolerate PO. He tells me he has been taking minimal insulin since this flare began. He has taken no long acting insulin at all for the last 4 days. He is prescribed insulin detemir 40 u BID + insulin Aspart SS TID. He feels somewhat improved currently after Haldol and GI cocktail in the ER. He also has been complaining of significant reflux symptoms. Case discussed with ED physician Dr. Hopkins; records reviewed in EMR. History Information - Allergies/Home Medication List Allergies/Adverse Reactions: No Known Allergies Allergy (Verified 05/28/18 21:01) Home Medications: Capsacian 0.075% 1 lakshmi TP QID PRN 05/23/18 [Last Taken 05/23/18] Insulin Detemir [Levemir Flextouch] 40 unit SQ BID 05/23/18 [Last Taken 05/21/18 ] I have personally reviewed and updated: family history, medical history - Past Medical History diabetes type 1 (With previous episodes of diabetic ketoacidosis), GERD (Not currently on any medications) Additional medical history: daily marijuana use, h/o alcohol abuse, type 1 diabetes - Surgical History Reports: no pertinent surgical hx - Family History Positive for: diabetes type II Additional family history: no family history of autoimmune diseases - Social History Smoking Status: Former smoker Additional social history: 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 Review of Systems Review of Systems: ROS: 10pt was reviewed & negative except for what was stated in HPI & below Physical Exam Physical Exam: Temp Pulse Resp BP Pulse Ox 36.7 C 73 16 118/61 98 05/28/18 22:30 05/28/18 22:30 05/28/18 22:30 05/28/18 22:30 05/28/18 22:30 Constitutional: appears nourished, uncomfortable Eyes: PERRL, EOMI Ears, Nose, Mouth, Throat: moist mucous membranes, no oral mucosal ulcers Cardiovascular: regular rate and rhythym, no murmur, rub, or gallop Respiratory: no respiratory distress, clear to auscultation Gastrointestinal: normoactive bowel sounds, soft, non-tender abdomen Skin: warm, normal color Musculoskeletal: full muscle strength, no muscle tenderness Neurologic: AAOx3, CN II-XII Intact Psychiatric: interacting appropriately, not anxious Lab Data & Imaging Review 05/28/18 21:25 05/28/18 21:25 WBC 15.94 10^3/uL (3.80-9.50) H 05/28/18 21:25 RBC 5.20 10^6/uL (4.40-6.38) 05/28/18 21:25 Hgb 15.7 g/dL (13.7-17.5) 05/28/18 21: POC Hgb 13.6 gm/dL (13.7-17.5) L 05/28/18 22:45 Hct 45.5 % (40.0-51.0) 05/28/18 21: POC Hct 40 % (40-51) 05/28/18 22:45 MCV 87.5 fL (81.5-99.8) 05/28/18 21:25 MCH 30.2 pg (27.9-34.1) 05/28/18 21: MCHC 34.5 g/dL (32.4-36.7) 05/28/18 21:25 RDW 11.9 % (11.5-15.2) 05/28/18 21:25 Plt Count 406 10^3/uL (150-400) H 05/28/18 21:25 MPV 10.0 fL (8.7-11.7) 05/28/18 21:25 Neut % (Auto) Not Reported 05/28/18 21:25 Lymph % (Auto) Not Reported 05/28/18 21:25 [place] % (Auto) Not Reported 05/28/18 21:25 Eos % (Auto) Not Reported 05/28/18 21:25 Baso % (Auto) Not Reported 05/28/18 21:25 Nucleat RBC Rel Count Not Reported 05/28/18 21:25 Absolute Neuts (auto) Not Reported 05/28/18 21:25 Absolute Lymphs (auto) Not Reported 05/28/18 21:25 Absolute Monos (auto) Not Reported 09/21/18 21:25 Absolute Eos (auto) Not Reported 05/28/18 21:25 Absolute Basos (auto) Not Reported 05/28/18 21:25 Absolute Nucleated RBC Not Reported 05/28/18 21:25 Immature Gran % Not Reported 05/28/18 21:25 Seg Neutrophils % 80.0 % 05/28/18 21:25 Band Neutrophils % 0.0 % 05/28/18 21:25 Lymphocytes % 9.0 % 05/28/18 21: Monocytes % 7.0 % 05/28/18 21:25 Eosinophils % 0.0 % 05/28/18 21: Basophils % 3.0 % 05/28/18 21: Metamyelocytes % 1.0 % 05/28/18 21: Myelocytes % 0.0 % 05/28/18 21: Promyelocytes % 0.0 % 05/28/18: Blast Cells % 0.0 % 05/28/18 21:25 Immature Gran # Not Reported 05/28/18 21:25 Absolute Seg Neuts 12.75 10^/uL (1.70-6.50) H 05/28/18 21:25 Absolute Band Neuts 0.00 10^3/uL (0.00-0.70) 05/28/18 21: Absolute Lymphocytes 1.43 10^3/uL (1.00-3.00) 05/28/18 21: Absolute Monocytes 1.12 10^3/uL (0.30-0.80) H 05/28/18 21: Absolute Eosinophils 0.00 10^3/uL (0.03-0.40) L 05/28/18 21:25 Absolute Basophils 0.48 10^3/uL (0.02-0.10) H 05/28/18 21:25 Absolute Metamyelocyte 0.16 10^3/mL (0.00-0.00) H 05/28/18 21: Absolute Myelocytes 0.00 10^3/mL (0.00-0.00) 05/28/18: Absolute Promyelocytes 0.00 10^3/uL (0.00-0.00) 05/28/18: Absolute Plasma Cells 0.00 10^3/uL (0.00-0.00) 05/28/18 21:25 Nucleated RBCs 0 /100 WBC (0-0) 05/28/18 21:25 Absolute Blast Cells 0.00 10^3/uL (0.00-0.00) 05/28/18 21:25 Plasma Cells % 0.0 % 05/28/18 21:25 Platelet Estimate ADEQUATE (ADEQ) 05/28/18 21:25 Microcytic Cells 1+ H 05/28/18 21:25 Oval Macrocytes 1+ H 05/28/18 21:25 Puncture Site NONE GIVEN 05/28/18 22:44 Patient Temperature 37.0 DEGREES 05/28/18 22:44 VBG pH 7.31 (7.31-7.42) 05/28/18 22:44 VBG HCO3 12 mEQ/L (22-26) L 05/28/18 22:44 VBG Total CO2 13 mEq/L (21-27) L 05/28/18 22:44 VBG O2 Saturation 98 % (65-75) H 05/28/18 22:44 VBG Base Excess -12.5 mEq/L (-2.5-2.5) L 05/28/18 22:44 Mixed VBG pCO2 25 mmHg (40-44) L 05/28/18 22:44 Mixed VBG pO2 113 mmHG (35-40) H 05/28/18 22:44 POC Sodium 127 mEq/L (135-145) L 05/28/18 22:45 Sodium 129 mEq/L (135-145) L 05/28/18 21:25 POC Potassium 4.6 mEq/L (3.3-5.0) 05/28/18 22:45 Potassium 5.1 mEq/L (3.3-5.0) H 05/28/18 21:25 POC Chloride 94 mEq/L (97-110) L 05/28/18 22:45 Chloride 86 mEq/L (97-110) L 05/28/18 21:25 Carbon Dioxide 14 mEq/l (22-31) L 05/28/18 21:25 Anion Gap 29 mEq/L (8-16) H 05/28/18 21:25 POC BUN 18 mg/dL (7-23) 05/28/18 22:45 BUN 18 mg/dL (7-23) 05/28/18 21:25 Creatinine 1.0 mg/dL (0.7-1.3) 05/28/18 21:25 POC Creatinine 0.8 mg/dL (0.7-1.3) 05/28/18 22:45 Estimated GFR > 60 05/28/18 21:25 Glucose 465 mg/dL (70-100) H 05/28/18 21:25 POC Glucose 426 mg/dL (70-100) H 05/28/18 22:45 Calcium 9.8 mg/dL (8.5-10.4) 05/28/18 21:25 Assessment & Plan Assessment: 32 yo M w/ T1DM and CHS presents with DKA and ongoing nausea, vomiting. Plan: 1. T1DM c/b DKA - AG of 29 and HCO3 of 14 on admission; I suspect trigger for this is insulin deficiency as he has not administered himself any long acting insulin in at least 4 days. He is prescribed insulin detemir 40 u BID + insulin aspart SSI TID as an outpatient. - Admit to ICU - DKA protocol ordered - Hold subcutaneous insulin while on insulin gtt, proceed per protocol - I counseled patient that on days where he cannot tolerate PO due to CHS, he should simply cut basal insulin dose in half 2. Cannabis hyperemesis syndrome with ongoing exacerbation - Symptoms have been flaring for about 10 days now, with 4 hospital visits over this period. The situation is complicated by recurrent DKA due to insulin underdosing and coexisting GERD/gastritis. - Treat DKA as above - Anti-emetics PRN - Address GERD as below - Counseled marijuana cessation 3. GERD - Patient with significant GERD symptoms over the last few weeks as well. His symptoms were helped by GI cocktail in the ED. I suspect this is complicating the symptoms from his CHS. - PPI IV BID for now - GI cocktail PRN 4. Leukocytosis - This is most likely reactive from DKA and nausea/vomiting. - Monitor for signs of infection 5. Hyponatremia - Na 129 on admission but corrects to 135 when accounting for hyperglycemia. - Continue DKA protocol Diet - NPO while on insulin gtt Code - Full Ppx - Low risk Dispo - Admit under observation status
[2018-05-28] MEDS ORDERED: HALOPERIDOL LACT 5 MG/ML INJ IVP PRN (23:44)
[2018-05-28] MEDS ORDERED: D50W 25 GM/50 ML SYR IVP PRN (23:44)
[2018-05-28] MEDS ORDERED: MAG HYDROX/AL HYDROX/SIMETH 30 ML UDCUP PO PRN (23:45)
[2018-05-28] MEDS ORDERED: LIDOCAINE 2% VISCOUS 15 ML UDCUP PO PRN (23:45)
[2018-05-28] MEDS ORDERED: INSULIN REGULAR HUMAN 100 UNIT in NS 100 ML IV SCH (23:45)
[2018-05-29] MEDS: NS 1,000 ML IV SCH ×2 (00:23→03:33)
[2018-05-29] MEDS ORDERED: PROTOCOL POTASSIUM 1 DOSE MISC PRN (00:24)
[2018-05-29] MEDS ORDERED: D50W 25 GM/50 ML SYR IVP PRN (00:30)
[2018-05-29] MEDS ORDERED: RN:ENTER POTASSIUM ICU PROTOCOL ON WORKLIST MISC ONE (00:30)
[2018-05-29] MEDS: D10W 1,000 ML IV SCH ×2 (00:42→07:29)
[2018-05-29] MEDS: PANTOPRAZOLE SODIUM 40 MG VIAL IVP SCH ×2 (00:48→10:27)
[2018-05-29] MEDS ORDERED: NS 500 ML IV ONE ×2 (01:00)
[2018-05-29 03:46] LABS: PLATELET COUNT 276 10^3/uL (150-400)
[2018-05-29] MEDS ORDERED: INSULIN GLARGINE 100 UNITS/ML UNIT SC SCH ×4 (06:30→21:00)
[2018-05-29] MEDS ORDERED: INSULIN LISPRO 100 UNIT/ML SC SCH (08:00)
[2018-05-29] MEDS ORDERED: POTASSIUM Cl (KCl) 100 ML IV SCH ×3 (09:00)
[2018-05-29 09:06] VITALS: BP 114/68
[2018-05-29] MEDS ORDERED: PANTOPRAZOLE SODIUM 40 MG TAB PO SCH (10:00)
[2018-05-29] MEDS ORDERED: POTASSIUM CL 10 MEQ TAB PO ONE (10:00)
[2018-05-29] MEDS ORDERED: INSULIN GLARGINE 100 UNITS/ML SYRINGE SC ONE (10:15)
--- NOTE | 2018-05-29 12:44 | ASDISCHSUM ---
Discharge Information Plan Status:Home with No Needs Medically Cleared to Leave:05/29/2018 Discharge Date:05/29/2018 11:37 AM CM D/C Disposition:Home, Routine, Self-Care ADT D/C Disposition:Home, Routine, Self-Care Projected Discharge Date:05/29/2018 11:37 AM Transportation at D/C:Family Discharge Delay Reason: Follow-Up Date:05/29/2018 11:37 AM Discharge Slot: Final Diagnosis:hyperemesis syndrome Placement Information Patient Contact Information Contact Name:GIANCARLO Relationship:Other Address:[address] City:[place] Alternate Phone: State/Zip Code:[place] [address] Email: Financial Information Financial Class:Self-Pay Primary Plan Desc:[facility] Primary Plan Number:[id number] Secondary Plan Desc: Secondary Plan Number: Assessment Information Case Management Discharge Plan Note Case Management Discharge Discharge Order Complete? Answers: Yes Patient to Obtain Answers: Independently Medications Transportation Arranged Answers: Family/Friends Discharge Comments Notes: Spoke with pt in the room. CM is very familiar with this patient who states he is aware that he cannot smoke marijuana anymore due to hyperemesis and is unable to stop on his own. Pt given list of AA meetings even though issue is not with alcohol and given counseling and education about how to modify the information for his issues with marijuana. Recommended pt identify in-network psychotherapist through health insurer for addiction support as well as trauma support as pt lost his mother at a young age. Pt verbalized appreciation. No further CM needs noted at this time. Date Signed: 05/29/2018 12:43 PM Electronically Signed By:Vi Bright Intervention Information
--- NOTE | 2018-05-29 12:49 | ASMTLACE ---
CAPOE Length of stay for Answers: Less than 1 day current admission Acuity / Level of Answers: Yes Care: Did the patient have an inpatient admission? Comorbidities - select Answers: Diabetes (uncontrolled or all that apply controlled) Other Notes: cannabis hyperemesis # of Emergency department Answers: 5-8 visits in the last 6 months Social determinants Answers: History of substance abuse (ETOH, street drugs, prescription drugs, etc.) Score: 12 Date Signed: 05/29/2018 12:49 PM Electronically Signed By:Vi Bright
--- NOTE | 2018-05-29 18:23 | GDS ---
DISCHARGE DIAGNOSES: 1. Diabetic ketoacidosis. 2. Cannabis hyperemesis syndrome. 3. Gastroesophageal reflux disease. 4. Diabetes type 1. HISTORY: Joseluis is a 32-year-old male with many recurrent admissions for cannabis hyperemesis syndr ome. This is complicated by his type 1 diabetes. He recently started vomiting and has been unable t o take much in the way of p.o. intake for the last 4 days. Due to his decreased p.o. intake, he comp letely stopped his insulin and presented in DKA. He was admitted to the ICU and treated with standar d DKA protocol. I spoke to the patient about his multiple admissions for cannabis hyperemesis, yet he continues to sm eddi marijuana. He admits to the fact he is aware of the marijuana causing the vomiting but he has alejandra d a difficult time stopping marijuana because nothing else really works for his nausea, and he is in a vicious cycle. I counseled him regarding not cold turkeying off insulin while he is vomiting and a t least taking half doses of insulin through these vomiting episodes. He has never had a Gastroenter ology workup, and it could be considered if he is successfully able to stop marijuana and the vomitin g continues. For now, he complains of severe acid reflux symptoms due to the persistent severe vomit ing. I prescribed a 2 week course of empiric proton pump inhibitor as I assume he has some degree of esophagitis from this excessive vomiting. DISCHARGE MEDICATIONS: Please see computerized record for full detailed list. New medications: 1. Protonix 40 mg p.o. twice daily for 14 days. 2. Zofran ODT 4 mg q.4 hours as needed. ADDITIONAL DISCHARGE INSTRUCTIONS: 1. Outpatient Endocrinology consultation to consider insulin pump. The patient was given a referral to [facility]. 2. The patient counseled regarding marijuana cessation as this is the cause of his cannabis hypereme sis syndrome. 3. If vomiting persists after successful discontinuation of marijuana, consider outpatient Gastroent erology consultation with GI of the [facility]. 4. Do not stop insulin completely while vomiting; take half your usual dose. Greater than 30 minutes time was spent arranging this discharge. Patient was seen and examined by me on the day of discharge. /[id number]/MODL
== END 2018-05-29 11:37 | disposition home or self-care (01) ==
LOC: INTOOBSV 22:22 → F2N 22:55
PROVIDERS: ADMIT Student in an Organized Health Care Education/Training Program; ATTEND Internal Medicine
DX: E10.10 Type 1 diabetes mellitus with ketoacidosis without coma (principal); G43.A0 Cyclical vomiting, in migraine, not intractable; T40.7X5A Adverse effect of cannabis (derivatives), initial encounter; F12.20 Cannabis dependence, uncomplicated; E86.0 Dehydration; K21.9 Gastro-esophageal reflux disease without esophagitis
CPT/HCPCS: 93005; 96361; 96374; 96375; 96376; 99291; G0378; 82435-PO; 82565-PO; 82947-PO; 84132-PO; 84295-PO; 84520-PO; 85014-PO; J1200; J1630; J1815; J2060; J2405; J2550

== ENCOUNTER 2018-12-20 07:41 | Emergency (ER) | payer OTHER ==
[2018-12-20 07:53] VITALS: BP 133/77
[2018-12-20] MEDS ORDERED: IBUPROFEN 600 MG TAB PO ONE (08:03)
--- NOTE | 2018-12-20 08:09 | EDPHY ---
H & P Time Seen by Provider: 12/20/18 07:43 HPI/ROS: This patient sustained no left posterior rib injury from hockey last night. He explains that he was cross checked with the blunt end of a hockey stick jammed into his left lower ribs with pain since that time that is moderate 5/10 at rest but becomes severe with twisting motions of his torso or deep breaths. He has no other associated symptoms. He drove himself here by private vehicle small ring has not taken any medications prior to arrival. ROS: Constitutional: No fevers. No generalized weakness. HEENT: No complaints Neuro: No head injury Pulmonary: No hemoptysis. No shortness of breath Cardiovascular: No lightheadedness GI: No abdominal pain or vomiting 7 point review of symptoms is performed and otherwise negative with exception of pertinent positives and negatives listed in HPI and ROS Smoking Status: Former smoker Physical Exam: Physical Exam Vital signs are normal. General: No acute distress HEENT: Atraumatic. Eyes: Pupils equal and react to light. Extraocular motions are intact. Lungs: Clear to auscultation bilaterally. No respiratory distress. He has left posterior lower rib tenderness with no crepitance appreciated. No rales or rhonchi. Cardiac: Regular rate and rhythm with no murmur gallop or rub. Brisk capillary refill is intact throughout. Pulses are 2+ and symmetric in the affected extremity. Abdomen: Soft, nontender Skin: No rash or pallor. Neuro: Alert and oriented x3 with no sensorimotor deficits. Initial differential diagnosis: Rib fracture, rib contusion, pulmonary contusion, pneumothorax, hemothorax, soft tissue injury Constitutional: Initial Vital Signs Temperature (C) 36.6 C 12/20/18 07:49 Heart Rate 82 12/20/18 07:49 Respiratory Rate 16 12/20/18 07:49 Blood Pressure 133/77 H 12/20/18 07:49 O2 Sat (%) 95 12/20/18 07:49 O2 Delivery Mode Room Air Allergies/Adverse Reactions: No Known Allergies Allergy (Verified 12/20/18 07:48) Home Medications: Medication Instructions Recorded Fiasp 100 Unit/ml Flextouch 12/20/18 Lantus 12/20/18 Lidocaine [Lidoderm] 1 each TP DAILY #15 adh..patch 12/20/18 MDM/Departure - MDM Diagnostics: Two view chest x-ray with rib marker and rib views: Appreciate no evidence of fracture, pneumothorax hemothorax or other acute abnormalities by my interpretation. Imaging: I viewed and interpreted images myself Medications Given: Discontinued Medications Ibuprofen (Motrin) 600 mg PO EDNOW ONE Stop: 12/20/18 08:04 Last Admin: 12/20/18 08:11 Dose: 600 mg Miscellaneous Medication (Icy Hot Lidocaine/Menthol 4%/1% Patch) 1 patch TD EDNOW ONE Stop: 12/20/18 08:04 Last Admin: 12/20/18 08:14 Dose: 1 patch ED Course/Re-evaluation: Ibuprofen in Lidoderm patch I reviewed the chest x-ray and find evidence of rib fracture, pneumothorax, hemothorax, pulmonary contusion or other red flag findings. I counseled patient regarding rib injury. Will treat him with ibuprofen, Tylenol and Lidoderm patches. He understands need to take deep breaths despite the discomfort to prevent secondary potential complication of atelectasis/ pneumonia. - Depart Disposition: Home, Routine, Self-Care Clinical Impression: Contusion of rib on left side Qualifiers: Encounter type: initial encounter Qualified Code(s): S20.212A - Contusion of left front wall of thorax, initial encounter Condition: Good Instructions: Rib Contusion (ED) Additional Instructions: Diagnosis: Rib injury Plan: Ibuprofen 600 mg per 6 hr Tylenol in addition as needed for pain Lidoderm patches in addition as needed for pain. Take a deep breath every 10-15 minutes despite the pain to prevent secondary complication of pneumonia. Return for any significant worsening despite treatment plan. Prescriptions: Lidocaine [Lidoderm] 1 each TP DAILY #15 adh..patch Referrals: Gretta Lorenzana MD [Primary Care Provider] - As per Instructions
[2018-12-20] MEDS: LIDOCAINE 4%/MENTHOL 1% PATCH TD ONE ×2 (08:12→08:14)
[2018-12-20] MEDS ORDERED: PATCH REMOVAL 1 EA PATCH TD SCH (21:00)
== END 2018-12-20 08:42 | disposition home or self-care (01) ==
LOC: CED 07:41
DX: S20.212A Contusion of left front wall of thorax, initial encounter (principal); W21.210A Struck by ice hockey stick, initial encounter; Y93.22 Activity, ice hockey; Y92.330 Ice skating rink (indoor) (outdoor) as the place of occurrence of the external cause
CPT/HCPCS: 71101-PO; 99283-ER